=== PATIENT | female | born 1945 | race African-American/Black ===

== ENCOUNTER 2017-01-14 18:18 | Observation (INO) | payer MEDICARE, OTHER ==
[2017-01-14] MEDS ORDERED: ASPIRIN 81 MG TABLET, CHEWABLE PO ONE (18:35)
[2017-01-14] MEDS ORDERED: ONDANSETRON 4 MG TAB.RAPDIS PO ONE (18:36)
--- NOTE | 2017-01-14 18:38 | ER Document Report ---
ED Medical Screen (RME) - General Stated Complaint: DIZZY/CHEST PAIN Time seen by provider: 18:32 Notes: Spouse states sudden onset of headache, chest pain, vomiting and diarrhea, and dizziness this afternoon. Patient is currently under the care of direct marketing intern. no known fever. Patient states pain radiates from head down left arm. Does experience some shortness of breath. Patient states pain is up underneath left breast. Vomited x 5 since 5pm. I have greeted and performed a rapid initial assessment of this patient. A comprehensive ED assessment and evaluation of the patient, analysis of test results and completion of the medical decision making process will be conducted by additional ED providers. TRAVEL OUTSIDE OF THE [place] IN LAST 30 DAYS: No - Related Data Allergies/Adverse Reactions: No Known Allergies Allergy (Verified 01/14/17 18:36) Past Medical History - Past Medical History Cardiac Medical History: Reports: Hx Hypercholesterolemia, Hx Hypertension - MEDICATED Denies: Hx Coronary Artery Disease, Hx Heart Attack Pulmonary Medical History: Reports: Hx Asthma - rescue inhaler, used 1 week ago , Hx COPD, Hx Pneumonia - 2007 Denies: Hx Bronchitis Neurological Medical History: Denies: Hx Cerebrovascular Accident, Hx Seizures Endocrine Medical History: Reports: Hx Diabetes Mellitus Type 1, Hx Diabetes Mellitus Type 2 GI Medical History: Reports: Hx Gastroesophageal Reflux Disease. Denies: Hx Hepatitis, Hx Hiatal Hernia, Hx Ulcer Musculoskeltal Medical History: Reports Hx Arthritis - Rt hip, Rt knee Infectious Medical History: Denies: Hx Hepatitis Past Surgical History: Reports: Hx Hysterectomy, Hx Orthopedic Surgery - lumbar fusion, Hx Thyroid Surgery. Denies: Hx Mastectomy, Hx Open Heart Surgery, Hx Pacemaker - Immunizations Hx Diphtheria, Pertussis, Tetanus Vaccination: No Physical Exam - Cardiovascular Rhythm: Regular Heart sounds: Normal auscultation
--- NOTE | 2017-01-14 18:46 | EKG REPORT ---
SEVERITY:- BORDERLINE ECG - SINUS RHYTHM BORDERLINE PROLONGED QT INTERVAL : Confirmed by: Dereje Senior MD 14-Jan-2017 18:45:51
--- NOTE | 2017-01-14 19:52 | ER Document Report ---
ED Cardiac - General Chief Complaint: Chest Pain Stated Complaint: DIZZY/CHEST PAIN Time seen by provider: 19:52 Mode of Arrival: Ambulatory Information source: Patient TRAVEL OUTSIDE OF THE [place] IN LAST 30 DAYS: No - HPI Patient complains to provider of: Chest pain, Shortness of breath Was the onset of pain: Sudden Is the pain a: New problem Chest pain location: Substernal Quality of pain: Sharp, Stabbing Chest pain radiation location: Left arm Severity now: Moderate Severity at worst: Moderate Chest pain precipitating factors: At Rest Cardiac risk factors: Diabetes, Hypertension, Dyslipidemia Positive cardiac history: Yes Associated symptoms: Diaphoresis, Shortness of breath Exacerbated by: Denies Relieved by: Nothing Similar symptoms previously: Yes Recently seen / treated by doctor: No Notes: Patient is a 71-year-old female with multiple medical problems who presents to the emergency room complaining of left-sided chest pain that's been going on for the past 2 days, she reports headache, she reports the pain is stabbing like a knife, denies any aggravating or alleviating symptoms, it is been going on intermittently throughout the past 2 days, when the pain comes on she reports shortness of breath and diaphoresis, reports a history of similar symptoms a few months ago which time she was admitted to the hospital for evaluation, also reports that she vomited 5 times throughout the day today - Related Data Allergies/Adverse Reactions: No Known Allergies Allergy (Verified 01/14/17 18:36) Past Medical History - General Information source: Patient - Social History Smoking Status: Never Smoker Chew tobacco use (# tins/day): No Frequency of alcohol use: None Drug Abuse: None Family History: Reviewed & Not Pertinent Patient has suicidal ideation: No Patient has homicidal ideation: No - Past Medical History Cardiac Medical History: Reports: Hx Hypercholesterolemia, Hx Hypertension - MEDICATED Denies: Hx Coronary Artery Disease, Hx Heart Attack Pulmonary Medical History: Reports: Hx Asthma - rescue inhaler, used 1 week ago , Hx COPD, Hx Pneumonia - 2007 Denies: Hx Bronchitis Neurological Medical History: Denies: Hx Cerebrovascular Accident, Hx Seizures Endocrine Medical History: Reports: Hx Diabetes Mellitus Type 1, Hx Diabetes Mellitus Type 2 Renal/ Medical History: Denies: Hx Peritoneal Dialysis GI Medical History: Reports: Hx Gastroesophageal Reflux Disease. Denies: Hx Hepatitis, Hx Hiatal Hernia, Hx Ulcer Musculoskeltal Medical History: Reports Hx Arthritis - Rt hip, Rt knee Infectious Medical History: Denies: Hx Hepatitis Past Surgical History: Reports: Hx Hysterectomy, Hx Orthopedic Surgery - lumbar fusion, Hx Thyroid Surgery. Denies: Hx Mastectomy, Hx Open Heart Surgery, Hx Pacemaker - Immunizations Hx Diphtheria, Pertussis, Tetanus Vaccination: No Hx Pneumococcal Vaccination: 11/12/07 Review of Systems - Review of Systems Constitutional: No symptoms reported EENT: No symptoms reported Cardiovascular: See HPI Respiratory: See HPI Gastrointestinal: See HPI Genitourinary: No symptoms reported Female Genitourinary: No symptoms reported Musculoskeletal: No symptoms reported Skin: No symptoms reported Hematologic/Lymphatic: No symptoms reported Neurological/Psychological: No symptoms reported -: Yes All other systems reviewed and negative Physical Exam - Vital signs Vitals: Temp Pulse Resp BP Pulse Ox 98.3 F 81 18 140/70 H 98 01/14/17 18:34 01/14/17 18:34 01/14/17 18:34 01/14/17 18:34 01/14/17 18:34 Interpretation: Normal - General General appearance: Appears well, Alert - HEENT Head: Normocephalic, Atraumatic Eyes: Normal Pupils: PERRL - Respiratory Respiratory status: No respiratory distress Chest status: Nontender Breath sounds: Normal Chest palpation: Normal - Cardiovascular Rhythm: Regular Heart sounds: Normal auscultation Murmur: No - Abdominal Inspection: Normal Distension: No distension Bowel sounds: Normal Tenderness: Nontender Organomegaly: No organomegaly - Back Back: Normal, Nontender - Extremities General upper extremity: Normal inspection, Nontender, Normal color, Normal ROM , Normal temperature General lower extremity: Normal inspection, Nontender, Normal color, Normal ROM , Normal temperature, Normal weight bearing. No: Morelia's sign - Neurological Neuro grossly intact: Yes Cognition: Normal Orientation: AAOx4 Neo Coma Scale Eye Opening: Spontaneous [place] Coma Scale Verbal: Oriented Neo Coma Scale Motor: Obeys Commands [place] Coma Scale Total: 15 Speech: Normal Motor strength normal: LUE, RUE, LLE, RLE Sensory: Normal - Psychological Associated symptoms: Normal affect, Normal mood - Skin Skin Temperature: Warm Skin Moisture: Dry Skin Color: Normal Course - Re-evaluation Re-evalutation: 01/14/17 21:[address] Seaman, who is covering for Dr. Reynoso, agrees with telemetry observation admission for further evaluation and treatment of patient's chest pain - Vital Signs Vital signs: Temp Pulse Resp BP Pulse Ox 98.3 F 81 19 140/70 H 95 01/14/17 18:34 01/14/17 18:34 01/14/17 23:00 01/14/17 18:34 01/14/17 23:00 - Laboratory Result Diagrams: 01/14/17 20:35 01/14/17 20:35 Laboratory results interpreted by me: 01/14/17 01/14/17 20:35 20:35 RDW 14.9 H Est GFR (Non-Af Amer) 53 L Glucose 147 H - Diagnostic Test Radiology reviewed: Image reviewed, Reports reviewed - EKG Interpretation by Me EKG shows normal: Sinus rhythm Rate: Normal Rhythm: NSR Discharge - Discharge Clinical Impression: Chest pain Qualifiers: Chest pain type: unspecified Qualified Code(s): R07.9 - Chest pain, unspecified Condition: Stable Disposition: ADMITTED OBSERVATION Admitting Provider: Edgardo Unit Admitted: Telemetry
[2017-01-14 20:51] LABS: ABSOLUTE BASOPHILS # (AUTO) 0.1 10^3/uL (0.0-0.2); ABSOLUTE EOSINOPHILS # (AUTO) 0.2 10^3/uL (0.0-0.6); ABSOLUTE LYMPHOCYTES (AUTO) 1.8 10^3/uL (0.5-4.7); ABSOLUTE MONOCYTES (AUTO) 0.5 10^3/uL (0.1-1.4); ABSOLUTE NEUT (AUTO) 4.7 10^3/uL (1.7-8.2); BASOPHILS % (AUTO) 0.9 % (0-2); EOSINOPHILS % (AUTO) 2.7 % (0-6); HEMATOCRIT 36.8 % (36.0-47.0); HEMOGLOBIN 12.2 g/dL (12.0-15.5); HGB HCT DIFFERENCE -0.2; MEAN CORPUSCULAR HEMOGLOBIN 29.7 pg (27.0-33.4); MEAN CORPUSCULAR HGB CONC 33.1 g/dL (32.0-36.0); MEAN CORPUSCULAR VOLUME 90 fl (80-97); MONOCYTES % (AUTO) 7.3 % (3-13); RED CELL DISTRIBUTION WIDTH 14.9 % (11.5-14.0); SEGMENTED NEUTROPHILS % (AUTO) 64.1 % (42-78); WHITE BLOOD COUNT 7.3 10^3/uL (4.0-10.5)
[2017-01-14 21:04] LABS: PROTHROMBIN TIME 12.1 SEC (11.4-15.4)
[2017-01-14 21:08] LABS: ALANINE AMINOTRANSFERASE 26 U/L (9-52); ALBUMIN 4.1 g/dL (3.5-5.0); ALKALINE PHOSPHATASE 90 U/L (38-126); ANION GAP 14 (5-19); ASPARTATE AMINO TRANSFERASE 20 U/L (14-36); BILIRUBIN,TOTAL 0.4 mg/dL (0.2-1.3); BLOOD UREA NITROGEN 16 mg/dL (7-20); CARBON DIOXIDE 29 mmol/L (22-30); CHLORIDE 100 mmol/L (98-107); CREATINE KINASE 106 U/L (30-135); CREATININE RESULT 1.02 mg/dL (0.52-1.25); GLUCOSE 147 mg/dL (75-110); SODIUM 142.6 mmol/L (137-145); TOTAL PROTEIN 7.3 g/dL (6.3-8.2)
[2017-01-14 21:19] LABS: CREATINE KINASE MB 1.05 ng/mL (<4.55)
[2017-01-14 21:26] LABS: TROPONIN I < 0.012 ng/mL
[2017-01-15 04:08] LABS: CREATINE KINASE MB 1.22 ng/mL (<4.55)
[2017-01-15 04:11] LABS: TROPONIN I < 0.012 ng/mL
[2017-01-15] MEDS ORDERED: DOCUSATE SODIUM 100 MG CAPSULE PO PRN (07:55)
[2017-01-15] MEDS ORDERED: DEXTROSE 40% GEL 15 GM TUBE PO PRN ×2 (07:56)
[2017-01-15] MEDS ORDERED: GLUCAGON,HUMAN RECOMB 1 MG INJ IM PRN (07:56)
[2017-01-15] MEDS ORDERED: DEXTROSE 50%-WATER 25 GM/50 ML DISP.SYRIN IV PRN ×2 (07:56)
[2017-01-15] MEDS ORDERED: INSULIN LISPRO 100 UNIT/ML 3 ML VIAL SUBCUT PRN (07:56)
[2017-01-15] MEDS ORDERED: ENOXAPARIN SODIUM INJ 40 MG/0.4 ML DISP.SYRIN SUBCUT SCH (08:00)
--- NOTE | 2017-01-15 09:07 | PDOC H&P ---
History of Present Illness Admission Date/PCP: 01/14/17 22:26 SNEHAL BARRIOS MD History of Present Illness: IVAN ANGELES is a 71 year old female chest painAicha is a 71-year-old female presented in the emergency departments with a complaining of chest pain nausea vomiting and some heaviness in the chest and initial workup is negative for cardiac standpoints. Patient however recently has seen a Dr. Romero as outpatients and patient had a stress test done in the last July and was negative. Patient's currently denied any pain but something heaviness in the middle part of the chest and the patient was tender to touch on the chest wall. Patient denied any shortness of the breath . Patient's all EKG and cardiac enzyme was negative I think portions possible most likely a chest wall pain versus the GI symptoms but enough risk factors we will admit the patient's and further evaluate Past Medical History Cardiac Medical History: Reports: Hyperlipidema, Hypertension - MEDICATED Denies: Coronary Artery Disease, Myocardial Infarction Pulmonary Medical History: Reports: Asthma - rescue inhaler, used 1 week ago, Chronic Obstructive Pulmonary Disease (COPD), Pneumonia - 2007 Denies: Bronchitis Neurological Medical History: Denies: Seizures Endocrine Medical History: Reports: Diabetes Mellitus Type 1, Diabetes Mellitus Type 2 GI Medical History: Reports: Gastroesophageal Reflux Disease Denies: Hepatitis, Hiatal Hernia Musculoskeltal Medical History: Reports: Arthritis - Rt hip, Rt knee Hematology: Reports: Anemia - 2009 Denies: Sickle Cell Disease Past Surgical History Past Surgical History: Reports: Hysterectomy, Orthopedic Surgery - lumbar fusion Denies: Amputation, Mastectomy, Pacemaker Social History Smoking Status: Never Smoker Frequency of Alcohol Use: None Hx Recreational Drug Use: No Hx Prescription Drug Abuse: No Family History Family History: Reviewed & Not Pertinent Parental Family History Reviewed: Yes Children Family History Reviewed: Yes Sibling(s) Family History Reviewed.: Yes Medication/Allergy Home Medications: Aspirin [Aspirin 81 mg Chewable Tablet] 81 mg PO DAILY 09/25/12 Ergocalciferol (Vitamin D2) [Vitamin D] 1,000 unit PO DAILY 09/25/12 Levothyroxine Sodium [Synthroid 0.15 mg Tablet] 0.15 mg PO DAILY 09/25/12 Losartan/Hydrochlorothiazide [Hyzaar 100-25 Tablet] 1 each PO DAILY 09/25/12 Lovastatin [Mevacor] 40 mg PO DAILY 09/25/12 Metformin HCl [Glucophage 500 mg Tablet] 500 mg PO BID 09/25/12 Metoprolol Tartrate [Lopressor 50 mg Tablet] 50 mg PO BID 09/25/12 Omeprazole 20 mg PO DAILY 09/25/12 Potassium Chloride [Klor-Con] 20 meq PO BID 09/25/12 Pregabalin [Lyrica 50 mg Capsule] 100 mg PO BID 03/27/14 Docusate Sodium [Colace 100 mg Capsule] 100 mg PO PRN PRN 04/02/14 Albuterol Sulfate [Proair HFA] 1 - 2 puff IH Q4 PRN 07/24/16 Budesonide/Formoterol Fumarate [Symbicort HFA 160-4.5 mcg Inhaler 6 gm] 2 puff IH Q12H 07/24/16 Montelukast Sodium [Singulair 10 mg Tablet] 10 mg PO DAILY 07/24/16 Allergies/Adverse Reactions: No Known Allergies Allergy (Verified 01/14/17 18:36) Review of Systems Constitutional: ABSENT: chills, fever(s), headache(s), weight gain, weight loss Eyes: ABSENT: visual disturbances Ears: ABSENT: hearing changes Cardiovascular: PRESENT: chest pain. ABSENT: dyspnea on exertion, edema, orthropnea, palpitations Respiratory: ABSENT: cough, hemoptysis Gastrointestinal: ABSENT: abdominal pain, constipation, diarrhea, hematemesis, hematochezia, nausea, vomiting Genitourinary: ABSENT: dysuria, hematuria Musculoskeletal: ABSENT: joint swelling Integumentary: ABSENT: rash, wounds Neurological: ABSENT: abnormal gait, abnormal speech, confusion, dizziness, focal weakness, syncope Psychiatric: ABSENT: anxiety, depression, homidical ideation, suicidal ideation Endocrine: ABSENT: cold intolerance, heat intolerance, menstrual abnormalities, polydipsia, polyuria Hematologic/Lymphatic: ABSENT: easy bleeding, easy bruising, lymphadenopathy Physical Exam Vital Signs: Temp Pulse Resp BP Pulse Ox 98.4 F 75 26 H 153/81 H 100 01/15/17 04:22 01/15/17 04:22 01/15/17 04:22 01/15/17 04:22 01/15/17 04:22 Intake & Output 01/14/17 01/15/17 01/16/17 06:59 06:59 06:59 Intake Total 200 Balance 200 Weight 108.6 kg General appearance: PRESENT: no acute distress, well-developed, well-nourished Head exam: PRESENT: atraumatic, normocephalic Eye exam: PRESENT: conjunctiva pink, EOMI, PERRLA. ABSENT: scleral icterus Ear exam: PRESENT: normal external ear exam Mouth exam: PRESENT: moist, tongue midline Neck exam: PRESENT: full ROM. ABSENT: carotid bruit, JVD, lymphadenopathy, thyromegaly Respiratory exam: PRESENT: clear to auscultation [place] Cardiovascular exam: PRESENT: RRR. ABSENT: diastolic murmur, rubs, systolic murmur Pulses: PRESENT: normal dorsalis pedis pul, +2 pedal pulses bilateral Vascular exam: PRESENT: normal capillary refill GI/Abdominal exam: PRESENT: normal bowel sounds, soft. ABSENT: distended, guarding, mass, organolmegaly, rebound, tenderness Rectal exam: PRESENT: deferred Neurological exam: PRESENT: alert, awake, oriented to person, oriented to place , oriented to time, oriented to situation, CN II-XII grossly intact. ABSENT: motor sensory deficit Psychiatric exam: PRESENT: appropriate affect, normal mood. ABSENT: homicidal ideation, suicidal ideation Skin exam: PRESENT: dry, intact, warm. ABSENT: cyanosis, rash Results Laboratory Results: 01/15/17 01/15/17 03:35 03:35 Creatine Kinase 108 CK-MB (CK-2) 1.22 Troponin I < 0.012 Impressions: Chest X-Ray 01/14/17 18:36 IMPRESSION: NO ACUTE RADIOGRAPHIC FINDING IN THE CHEST. 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 Is this a current diagnosis for this admission?: YesPlan: ss with om protcol (3) Dyslipidemia Is this a current diagnosis for this admission?: YesPlan: stable (4) Headache Qualifiers: Headache type: unspecified Headache chronicity pattern: acute headache Intractability: not intractable Qualified Code(s): R51 - Headache Is this a current diagnosis for this admission?: YesPlan: migran headche (5) Hypertension Qualifiers: Hypertension type: essential hypertension Qualified Code(s): I10 - Essential (primary) hypertension Is this a current diagnosis for this admission?: YesPlan: stable (6) Obesity Qualifiers: Obesity severity: unspecified obesity severity Is this a current diagnosis for this admission?: Yes (7) Sleep apnea syndrome Qualifiers: Sleep apnea type: unspecified type Qualified Code(s): G47.30 - Sleep apnea, unspecified Is this a current diagnosis for this admission?: YesPlan: use c papUses CPAP machines - Time Time Spent: 30 to 50 Minutes Medications reviewed and adjusted accordingly: Yes Anticipated discharge: Home Within: within 24 hours - Inpatient Certification Medical Necessity: Significant Comorbidiites Make Outpatient Treatment Too Risky , Need Close Monitoring Due to Risk of Patient Decompensation - Plan Summary Plan Summary: Admit the patient's rule out any GI etiology and rule out acute coronary syndromes
[2017-01-15] MEDS ORDERED: LOSARTAN POTASSIUM 50 MG TABLET PO SCH (10:00)
[2017-01-15] MEDS ORDERED: (PENDING PHARMACY ID) (Potassium Chloride [Klor-Con] 20 MEQ) PO SCH (10:00)
[2017-01-15] MEDS ORDERED: METOPROLOL TARTRATE 50 MG TABLET PO SCH (10:00)
[2017-01-15] MEDS ORDERED: LOVASTATIN 40 MG PO SCH (10:00)
[2017-01-15] MEDS ORDERED: CHOLECALCIFEROL (D3) 1,000 UNIT TABLET PO SCH (10:00)
[2017-01-15] MEDS ORDERED: ASPIRIN 81 MG TABLET, CHEWABLE PO SCH (10:00)
[2017-01-15] MEDS ORDERED: MONTELUKAST SODIUM 10 MG TABLET PO SCH (10:00)
[2017-01-15] MEDS ORDERED: (PENDING PHARMACY ID) (Losartan/Hydrochlorothiazide [Hyzaar 100-25 Tablet] 1 EACH) PO SCH (10:00)
[2017-01-15] MEDS ORDERED: HYDROCHLOROTHIAZIDE 25 MG TABLET PO SCH (10:00)
[2017-01-15] MEDS ORDERED: (PENDING PHARMACY ID) (Ergocalciferol (Vitamin D2) [Vitamin D] 1,000 UNIT) PO SCH (10:00)
[2017-01-15] MEDS ORDERED: LEVOTHYROXINE SODIUM 0.15 MG TABLET PO SCH (10:00)
[2017-01-15 10:08] LABS: CREATINE KINASE MB 1.27 ng/mL (<4.55)
[2017-01-15 10:12] LABS: TROPONIN I < 0.012 ng/mL
[2017-01-15] MEDS: POTASSIUM CHLORIDE 10 MEQ TABLET.SA PO SCH ×2 (11:04→21:47)
[2017-01-15] MEDS: PREGABALIN 50 MG CAPSULE PO SCH ×2 (11:04→19:59)
[2017-01-15] MEDS: METOPROLOL TARTRATE 50 MG TABLET PO SCH ×2 (11:05→21:48)
[2017-01-15] MEDS: PANTOPRAZOLE SODIUM 40 MG VIAL IV SCH ×2 (11:06→21:48)
[2017-01-15] MEDS: BUDESONIDE/FORMOTEROL 160-4.5 MCG 60 PUFF/6 GM MDI IH SCH ×2 (11:06→21:47)
[2017-01-15 16:09] LABS: CREATINE KINASE MB 0.95 ng/mL (<4.55)
[2017-01-15 16:13] LABS: TROPONIN I < 0.012 ng/mL
[2017-01-15] MEDS ORDERED: ATORVASTATIN CALCIUM 10 MG TABLET PO SCH (22:00)
[2017-01-15 22:25] LABS: TROPONIN I < 0.012 ng/mL
--- NOTE | 2017-01-16 04:03 | CONSULTATION REPORT E ---
Consultation Report NAME: IVAN ANGELES : 1945 AGE: 71Y DATE: 01/15/2017 304 B TO: SHANELL GALO M.D. FROM: SNEHAL REYNOSO M.D. Requesting Physician REASON FOR CONSULTATION: Chest pain. HISTORY OF PRESENT ILLNESS: Patient is a morbidly obese 71-year-old Afro-[place] female with known history of hypertension, diabetes mellitus type 2, insulin-dependent, with history of obstructive sleep apnea, and history of hypothyroidism, states that yesterday she had sudden onset of sharp few seconds chest pain over the left chest, lasting only for a few seconds, but recurring. This whole episode lasted for about 10 minutes of intermittent few seconds of chest sharp pains. Also, subsequently, she also has some chest pain, which is reproducible by pressing of the left front of the chest, which is clearly non-cardiac chest pain. She had some shortness of breath. She also noted that her blood pressure was high at that time. In the ER, her blood pressure was 140/70. There was no cough, wheezing, PND, orthopnea. She does have a history of intermittent leg edema, but none recently. There are no palpitations or syncope. There are no TIA or CVA symptoms. PAST MEDICAL HISTORY: Positive for history of non-cardiac chest pain. She had a stress test in July of 2016, which as per the patient was negative. She has a history of sleep apnea and uses CPAP. She has a history of hypertension. She has a history of diabetes mellitus type 2, insulin-dependent with no definite complications. She has history of hypothyroidism, iatrogenic after she had a thyroid removed. She also has a history of asthma and uses rescue inhaler. The last one was about a week ago. There is wheezing after that. She also has a history of COPD. In 2007, she had pneumonia. She has no history of TIA, CVA, seizures. There is no history of chronic kidney disease. She has history of gastroesophageal reflux disease. She also has a history of arthritis of both knees and also has chronic back pain due to arthritis, even after having lumbar fusion surgery. There is no history of syncope. There is no history of PND or orthopnea at anytime. There is a history of intermittent leg swelling. PAST SURGICAL HISTORY: Positive for hysterectomy, orthopedic surgery, with lumbar fusion of lower back with chronic back pain. She also has had a history of operation on her wrist for nerve damage, which has not helped and her right handgrip is weak and she cannot open a bottle with the right hand. She does have neuropathy in her legs and feet. She has had arthritis of right hip and right knee. She has had lumbar fusion surgery. She has had back surgery in 2014 with lumbar fusion. She has also had a history of thyroidectomy for thyroid cancer with no metastasis and no recurrence. She is on replacement of Synthroid. She has a laparoscopic cholecystectomy, transvaginal hysterectomy, left breast biopsy x2, which was benign, and right wrist de Quervain's syndrome x2 with still some weakness in the right handgrip and cannot open a bottle with that. She had a surgery for cyst in the left ear. SOCIAL HISTORY: This patient does not smoke. There is no history of EtOH abuse. FAMILY HISTORY: Positive for hypertension, diabetes mellitus, but no history of coronary artery disease. DISPOSITION/CODE STATUS: The patient is a FULL CODE. is her healthcare decision maker. ALLERGIES: She has no known allergies. MEDICATIONS: Include: 1. Aspirin 81 mg p.o. daily. 2. She is on atorvastatin 10 mg p.o. at bedtime. 3. She is on Symbicort HFA 160/4.5 mcg inhaler 2 puffs q. 12 hours. 4. She is on vitamin D 1000 units p.o. daily. 5. She is on hypoglycemic precautions with dextrose 50% solution, 12.5 g IV and 25 g IV p.r.n. respectively for hypoglycemia. 6. She is on glucose 40% gel, 15 g p.o. p.r.n. and 30 g p.o. p.r.n. hypoglycemia. 7. She is also on Colace 100 mg p.o. daily. 8. She is on Lovenox 40 mg subcutaneously q.a.m. 9. She is on Glucagon 1 mg IM p.r.n. 10. She is on hydrochlorothiazide 25 mg p.o. daily. 11. She is on Accu-Cheks a.c. tid and at bedtime with sliding scale regular insulin. 12. She is on Synthroid 150 mcg p.o. daily. 13. She is on losartan 100 mg p.o. daily. 14. She is on metoprolol tartrate, Lopressor 50 mg p.o. q. 12 hours. 15. She is on Singulair 10 mg p.o. daily. 16. She is on pantoprazole sodium 40 mg IV q. 12 hours. 17. She is on KCl 20 mEq p.o. daily. 18. She is on Lyrica 100 mg p.o. b.i.d. REVIEW OF SYSTEMS: CONSTITUTIONAL: Denies any fever, chills or rigors, but complains of pain, generalized fatigued and weakness. HEAD: She did have a headache yesterday, but no past history of migraines. There is no history of seizures. No history of head injury. EYES: There is no history of amblyopia, diplopia. No history of amaurosis fugax. EARS: No history of hearing loss. No history of tinnitus. No history of recurring ear infections. NOSE: No history of nosebleeds. No history of nasal polyps. No history of hay fever. MOUTH: No history of altered taste sensation. No ulcers in the mouth. No bleeding from the gums. THROAT: No odynophagia or dysphagia. No history of recurrent sore throats. SKIN: There are no skin rashes. There is no pruritus. There is no yellowish discoloration of the skin. There is no skin cancer. NECK: There are no cervical spine arthritis complaints of pain. She has swelling in the neck. There is no goiter. She has a scar in the upper chest, just below the neck, in the front, scar of thyroid surgery with some keloid, mild development. LUNGS: History of asthma and history of COPD. She has a history of sleep apnea and uses CPAP. No history of pulmonary embolism. No history of pleuritic chest pain, although she had sharp chest pains, which were not related to respiration. No hemoptysis. She states that she has a history of asthma. Last wheezing was about a week ago. She also has COPD. No recent cough or sputum production, suggestive of pneumonia. CARDIAC: History of hypertension, history of non-cardiac chest pains. The patient in July had a stress test, which the patient states was negative for any ischemia or heart attacks. She has no history of congestive heart failure. She has intermittent leg swelling, especially if she walks a lot and it is relieved by elevation of the legs. She has no palpitation. No syncope. No history of PND or orthopnea. There are no palpitations or syncope. She has no history of congenital heart disease. No history of rheumatic fever. GASTROINTESTINAL: History of GERD present. No history of GI bleed. She has intermittent dysphagia at times to solid foods. No history of hepatitis. No history of jaundice. No history of fatty food intolerance. She had one bout of diarrhea without hematochezia or melena or bright red blood per rectum. She has no abdominal pain. ENDOCRINE: History of diabetes mellitus type 2, with insulin-dependent. No polydipsia or polyuria. She has history of neuropathy of the feet and hence is on Lyrica. She has a history of thyroidectomy and is on thyroid replacement. No symptoms of heat or cold intolerance. No history of excessive sweating. No history of hirsutism. RENAL: No history of chronic kidney disease. No symptoms of UTI. No history of hematuria, pyuria or dysuria. MUSCULOSKELETAL: She has a history of chronic back pain due to arthritis. She also has arthritis of both knees. There is no history of collagen vascular disease. METABOLIC: The patient is morbidly obese. She has a history of hyperlipidemia. No history of gout. VASCULAR: No history of calf or buttock claudication. No history of DVT. HEMATOLOGICAL: No history of bleeding diathesis. No history of clotting disorders. CENTRAL NERVOUS SYSTEM: No history of TIA or CVA. No history of headaches, migraines, seizures chronically, but she did have some headache associated with the chest pain and her blood pressure was high. There is no gait imbalance. There is no tic douloureux. PSYCHIATRIC: No history of anxiety or depression. No history of suicidal ideation. PHYSICAL EXAMINATION: GENERAL: The patient is morbidly obese, but well groomed. At present, the patient has no symptoms except she has minimal discomfort when pressing on the middle left front of the chest. VITAL SIGNS: The patient is afebrile with a temperature of 98.8 degrees Fahrenheit, pulse is 84 beats per minute, blood pressure 129/81, respirations are 16 per minute, and O2 sats are 92% on room air. HEAD: Atraumatic, normocephalic. EYES: Pupils are equal, round, regular, reactive to light and accommodation. Extraocular movements are normal. There is no conjunctival pallor. There is no scleral icterus. EARS: Tympanic membranes are intact. External auditory canals are clear. NOSE: There is no inflammation of nasal mucous membranes. There are no nasal polyps. There is no deviated nasal septum. MOUTH: Mucous membranes of mouth are moist. Tongue is moist. There are no ulcers. There is no bleeding in the gums. THROAT: There are no exudates in the throat. There is no redness of the oropharynx. SKIN: There is no petechia or ecchymosis. There is no pruritus. There is no yellowish discoloration of the skin. NECK: Supple. There is no JVD. Carotids are equal. There is no bruit. There is no goiter. There is no lymphadenopathy. Trachea is central. LUNGS: Show slightly diminished air entry, prolonged expiration on auscultation and on percussion at present. There are no rhonchi, rales or wheezing. HEART: S1 and S2 are heard. There is no S3 gallop. There is no S4 gallop. Systolic murmur at left sternal border of the apex is noted. ABDOMEN: Abdomen is obese. There is no hepatosplenomegaly. Bowel sounds are well heard. There is no rebound, guarding or rigidity. EXTREMITIES: Femorals are diminished. Leg pulses are diminished. There are no femoral bruits. At present, there is no pedal edema. There is no DVT or cellulitis. There is no calf tenderness. CENTRAL NERVOUS SYSTEM: The patient is conscious, awake, alert, oriented x3 with no focal deficits. PSYCHIATRIC: The patient's judgment and insight are intact. Her affect is normal. DIAGNOSTIC DATA: The patient's EKG done on 01/14/2017 shows sinus rhythm, borderline prolonged QT interval. The patient's chest x-ray is essentially negative. There are no infiltrates or signs of heart failure. A chest CT without contrast shows lungs pleura. There are no masses, infiltrates or pneumothorax. No pleural effusions or calcifications. There are no any defined masses or abnormal nodes in the mediastinal. No obvious aneurysm. There is no pericardial effusion. There is some prominence of central pulmonary vessel, unchanged from previous study. Upper abdomen, no significant findings, limited exam. Thyroid and other soft tissues, no masses. There is no adenopathy. Bruits, there are no significant findings. LABORATORY DATA: The patient's white count is 7300. Hemoglobin is 12.2. Hematocrit is 36.8. Platelet count is 244,000. The patient's Pro-Time is 12.1. INR is 0.87. The patient's cardiac enzymes have been negative x4. The patient's sodium is 142.6. Potassium is 4/0. Her chloride is 100. CO2 is 29. The patient's BUN is 16. Creatinine is 1.02. GFR is greater than 60. Her glucose is 147. Her calcium is 10.0. Liver function tests are normal. Her total protein is 7.3. Albumin is 4.1. IMPRESSION: 1. CHEST PAIN. THIS IS DEFINITELY NON-CARDIAC, ESPECIALLY WITH *------* AND NEGATIVE TROPONIN I X4 AND WITH A STRESS TEST, WHICH WAS NEGATIVE IN . THIS WAS CLEARLY NON-CARDIAC. 2. DIABETES MELLITUS, TYPE 2, INSULIN-DEPENDENT WITH PERIPHERAL NEUROPATHY AND COMPLICATION. 3. HYPERTENSION. 4. HISTORY OF THYROIDECTOMY FOR THYROID CANCER WITH NO RECURRENCE WITH PATIENT HYPOTHYROID ON REPLACEMENT. 5. HEADACHE. 6. HYPERTENSION. 7. MORBID OBESITY. 8. OBSTRUCTIVE SLEEP APNEA, ON CPAP. 9. DYSLIPIDEMIA. 10. GASTROESOPHAGEAL REFLUX DISEASE. 11. CHRONIC BACK PAIN DUE TO ARTHRITIS. RECOMMENDATIONS: We will continue current medications. We will reassure the patient. The patient has been set up for a ventilation perfusion scan. The patient is Dr. Romero's patient. She can be followed up by Dr. Romero as an outpatient. Need to reduce weight discussed with the patient. Labs and findings of CT, EKGs and blood work; especially negative cardiac enzymes have all been discussed with the patient. Note: 40 minutes spent on this patient, in reviewing the patient's old records and also reviewing the patient's medications and discussions with the patient and the patient's family and also discussions with the attending physician of the case and coordinating care. More than 50% of the time was spent on direct patient care. The medical decision making is at least of moderate complexity since the patient is not a very good historian and I had to go through all her old records. We discussed with Dr. Borges and Dr. Reynoso, the attending on the case. We will sign off. The patient will follow up with Dr. Romero as an outpatient. Thanking you. DICTATING PHYSICIAN: SHANELL GALO M.D. [id number] PHY#: [id number] ID: [id number] JOB#: [id number] ACCT: [id number] cc:SHANELL GALO M.D. >
[2017-01-16 04:52] LABS: ABSOLUTE EOSINOPHILS # (AUTO) 0.3 10^3/uL (0.0-0.6); ABSOLUTE LYMPHOCYTES (AUTO) 2.5 10^3/uL (0.5-4.7); ABSOLUTE MONOCYTES (AUTO) 0.6 10^3/uL (0.1-1.4); ABSOLUTE NEUT (AUTO) 2.6 10^3/uL (1.7-8.2); BASOPHILS % (AUTO) 0.8 % (0-2); EOSINOPHILS % (AUTO) 5.2 % (0-6); HEMATOCRIT 33.5 % (36.0-47.0); HEMOGLOBIN 11.1 g/dL (12.0-15.5); HGB HCT DIFFERENCE -0.2; LYMPHOCYTES % (AUTO) 41.2 % (13-45); MEAN CORPUSCULAR HEMOGLOBIN 29.9 pg (27.0-33.4); MEAN CORPUSCULAR HGB CONC 33.2 g/dL (32.0-36.0); MEAN CORPUSCULAR VOLUME 90 fl (80-97); MONOCYTES % (AUTO) 10.3 % (3-13); RED BLOOD COUNT 3.73 10^6/uL (3.72-5.28); RED CELL DISTRIBUTION WIDTH 15.3 % (11.5-14.0); SEGMENTED NEUTROPHILS % (AUTO) 42.5 % (42-78)
[2017-01-16 05:14] LABS: ANION GAP 10 (5-19); BLOOD UREA NITROGEN 19 mg/dL (7-20); CALCIUM 9.9 mg/dL (8.4-10.2); CARBON DIOXIDE 30 mmol/L (22-30); CHLORIDE 102 mmol/L (98-107); CREATININE RESULT 1.02 mg/dL (0.52-1.25); GLUCOSE 135 mg/dL (75-110); POTASSIUM 3.9 mmol/L (3.6-5.0); SODIUM 142.4 mmol/L (137-145)
[2017-01-16 09:03] VITALS: BP 131/73
--- NOTE | 2017-01-16 13:40 | CONSULTATION REPORT E ---
Consultation Report NAME: IVAN ANGELES : 1945 AGE: 71Y DATE: 01/15/2017 304 B TO: SHANELL GALO M.D. FROM: SNEHAL BARRIOS M.D. Requesting Physician REASON FOR CONSULTATION: Chest pain. HISTORY OF PRESENT ILLNESS: The patient is a 71-year-old -[place] female with known history of morbid obesity, hypertension, diabetes mellitus type 2 insulin-dependent, obstructive sleep apnea, and history of asthma who states that yesterday she had in the evening around 5 o'clock sharp chest pains lasting few seconds at a time for a total period of 10 minutes with some shortness of breath and also headache. Subsequently, she had vomited and had diarrhea, but there was no hematemesis or melena. She at that time denies any history of dysphagia. She states that there were no palpitations. There were no PND or orthopnea, but she does have some shortness of breath. She states she has been diagnosed with obstructive sleep apnea and has used CPAP regularly. She denies any palpitations or syncope. There is intermittent leg edema, but none now. There is no history of TIA or CVA symptoms. She states that at that time her blood pressure was high, but in the emergency room, her first recorded blood pressure was 140/70. Subsequent to those 10 minutes, she has not had any further chest pains. PAST MEDICAL HISTORY: Positive for history of hypertension. Dictation ends DICTATING PHYSICIAN: SHANELL GALO M.D. [id number] PHY#: [id number] ID: [id number] JOB#: [id number] ACCT: [id number] cc:SHANELL GALO M.D. >
--- NOTE | 2017-01-16 13:45 | PDOC DISCHARGE SUMMARY ---
General - Admit/Disc Date/PCP Admission Date/Primary Care Provider: 01/14/17 22:26 SNEHAL BARRIOS MD Discharge Date: 01/16/17 - Discharge Diagnosis (1) Chest pain Is this a current diagnosis for this admission?: YesSummary: All resolved and most likely a noncardiac with the possible chest wall pain while elicited on the exam. (2) Diabetes mellitus Is this a current diagnosis for this admission?: YesSummary: Stable continues to current medications (3) Dyslipidemia Is this a current diagnosis for this admission?: YesSummary: Stable (4) Headache Is this a current diagnosis for this admission?: YesSummary: All resolved (5) Hypertension Is this a current diagnosis for this admission?: YesSummary: Stable on the current medications (6) Obesity Is this a current diagnosis for this admission?: YesSummary: Diet and exercise (7) Sleep apnea syndrome Is this a current diagnosis for this admission?: YesSummary: Continues the current CPAP (8) GERD (gastroesophageal reflux disease) Is this a current diagnosis for this admission?: YesSummary: Follow outpatients and continues to current medications. Patient have an endoscopy was done last year by Dr. brown and all stable - Additional Information Discharge Activity: Activity As Tolerated Home Medications: Aspirin [Aspirin 81 mg Chewable Tablet] 81 mg PO DAILY 09/25/12 Ergocalciferol (Vitamin D2) [Vitamin D] 1,000 unit PO DAILY 09/25/12 Levothyroxine Sodium [Synthroid 0.15 mg Tablet] 0.15 mg PO DAILY 09/25/12 Losartan/Hydrochlorothiazide [Hyzaar 100-25 Tablet] 1 each PO DAILY 09/25/12 Lovastatin [Mevacor] 40 mg PO DAILY 09/25/12 Metformin HCl [Glucophage 500 mg Tablet] 500 mg PO BID 09/25/12 Metoprolol Tartrate [Lopressor 50 mg Tablet] 50 mg PO BID 09/25/12 Omeprazole 20 mg PO DAILY 09/25/12 Potassium Chloride [Klor-Con] 20 meq PO BID 09/25/12 Pregabalin [Lyrica 50 mg Capsule] 100 mg PO BID 03/27/14 Docusate Sodium [Colace 100 mg Capsule] 100 mg PO PRN PRN 04/02/14 Albuterol Sulfate [Proair HFA] 1 - 2 puff IH Q4 PRN 07/24/16 Budesonide/Formoterol Fumarate [Symbicort HFA 160-4.5 mcg Inhaler 6 gm] 2 puff IH Q12H 07/24/16 Montelukast Sodium [Singulair 10 mg Tablet] 10 mg PO DAILY 07/24/16 History of Present Illness History of Present Illness: IVAN ANGELES is a 71 year old female chest painThis is a 71-year-old female presented in the emergency departments with a complaining of chest pain nausea vomiting and some heaviness in the chest and initial workup is negative for cardiac standpoints. Patient however recently has seen a Dr. Romero as outpatients and patient had a stress test done in the last July and was negative. Patient's currently denied any pain but something heaviness in the middle part of the chest and the patient was tender to touch on the chest wall. Patient denied any shortness of the breath . Patient's all EKG and cardiac enzyme was negative I think portions possible most likely a chest wall pain versus the GI symptoms but enough risk factors we will admit the patient's and further evaluate Hospital Course Hospital Course: This is a 71-year-old females present in the emergency department with chest pains epigastric discomfort and headache and the patient initial cardiac workup was all negative. Patient's denied any shortness of the breath patients denied any blurry vision or any weakness. Patient was admitted in the hospital and Dr. Childers was consulted and suggest this is a noncardiac. Patient's CT chest was done without contrast and was negative for any acute finding. Patient is walking the hallway without any problems and patient O2 sat is remained stable and patients denied any chest pain and no other symptoms no discharge. Patient's follow as outpatients. Patient have a very hard to get IV access so unable to get the IV contrast on the CT scan but I do not think so patient have any issue with the lung at this point and patient currently see a doctor Curseen regularly as outpatients. Patient's will following a one-week in office on this patient have any further chest pain any short of breath and to come to the emergency departments. Discussed with the patient's very extensively. Physical Exam Vital Signs: Temp Pulse Resp BP Pulse Ox 98.8 F 76 22 H 131/73 H 98 01/16/17 09:01 01/16/17 09:01 01/16/17 09:01 01/16/17 09:01 01/16/17 09:01 Intake & Output 01/15/17 01/16/17 01/17/17 06:59 06:59 06:59 Intake Total 200 1063 Balance 200 1063 Weight 108.6 kg 110.4 kg General appearance: PRESENT: no acute distress, well-developed, well-nourished Head exam: PRESENT: atraumatic, normocephalic Eye exam: PRESENT: conjunctiva pink, EOMI, PERRLA. ABSENT: scleral icterus Ear exam: PRESENT: normal external ear exam Mouth exam: PRESENT: moist, tongue midline Neck exam: PRESENT: full ROM. ABSENT: carotid bruit, JVD, lymphadenopathy, thyromegaly Respiratory exam: PRESENT: chest wall tenderness, clear to auscultation [place] Cardiovascular exam: PRESENT: RRR. ABSENT: diastolic murmur, rubs, systolic murmur Pulses: PRESENT: normal dorsalis pedis pul, +2 pedal pulses bilateral Vascular exam: PRESENT: normal capillary refill GI/Abdominal exam: PRESENT: normal bowel sounds, soft. ABSENT: distended, guarding, mass, organolmegaly, rebound, tenderness Rectal exam: PRESENT: deferred Neurological exam: PRESENT: alert, awake, oriented to person, oriented to place , oriented to time, oriented to situation, CN II-XII grossly intact. ABSENT: motor sensory deficit Psychiatric exam: PRESENT: appropriate affect, normal mood. ABSENT: homicidal ideation, suicidal ideation Skin exam: PRESENT: dry, intact, warm. ABSENT: cyanosis, rash Results Laboratory Results: 01/16/17 03:49 01/16/17 03:49 01/16/17 01/16/17 03:49 03:49 WBC 6.0 RBC 3.73 Hgb 11.1 L Hct 33.5 L MCV 90 MCH 29.9 MCHC 33.2 RDW 15.3 H Plt Count 228 Seg Neutrophils % 42.5 Lymphocytes % 41.2 Monocytes % 10.3 Eosinophils % 5.2 Basophils % 0.8 Absolute Neutrophils 2.6 Absolute Lymphocytes 2.5 Absolute Monocytes 0.6 Absolute Eosinophils 0.3 Absolute Basophils 0.0 Sodium 142.4 Potassium 3.9 Chloride 102 Carbon Dioxide 30 Anion Gap 10 BUN 19 Creatinine 1.02 Est GFR ( Amer) > 60 Est GFR (Non-Af Amer) 53 L Glucose 135 H Calcium 9.9 01/15/17 01/15/17 01/15/17 03:35 03:35 08:30 Creatine Kinase 108 118 CK-MB (CK-2) 1.22 Troponin I < 0.012 01/15/17 01/15/17 01/15/17 08:30 15:30 15:30 Creatine Kinase 109 CK-MB (CK-2) 1.27 0.95 Troponin I < 0.012 < 0.012 01/15/17 01/15/17 21:40 21:40 Creatine Kinase 96 CK-MB (CK-2) 0.80 Troponin I < 0.012 Impressions: Chest X-Ray 01/14/17 18:36 IMPRESSION: NO ACUTE RADIOGRAPHIC FINDING IN THE CHEST. Chest CT 01/15/17 00:00 IMPRESSION: NO SIGNIFICANT FINDING ON NON-CONTRASTED CHEST CT. Plan Time Spent: Less than 30 Minutes - Discharge home with the stable conditions with no other acute finding and no further hospitalization is required and patient's desire to go home and discussed with the hat lining blocker and suggested patients can discharge.
== END 2017-01-16 10:05 | disposition home or self-care (01) ==
LOC: ER 18:18 → EH 21:43 → UNDOADMOB 21:43 → INTOOBSV 22:26 → OBSVTOIN 22:26 → EH 22:26 → 3N 01-15 02:10
PROVIDERS: ADMIT Family Medicine; ATTEND Family Medicine
DX: R07.89 Other chest pain (principal); E11.40 Type 2 diabetes mellitus with diabetic neuropathy, unspecified; E78.5 Hyperlipidemia, unspecified; R51 Headache; I10 Essential (primary) hypertension; G47.33 Obstructive sleep apnea (adult) (pediatric); K21.9 Gastro-esophageal reflux disease without esophagitis; J44.9 Chronic obstructive pulmonary disease, unspecified; Z79.4 Long term (current) use of insulin; E66.01 Morbid (severe) obesity due to excess calories; E89.0 Postprocedural hypothyroidism; Z85.850 Personal history of malignant neoplasm of thyroid
CPT/HCPCS: 93005; 99285; 36415 ×3; 82553 ×2; 82962 ×2; 82550 ×2; 85025 ×2; 85610; 80048; 80053; 84484 ×2; 71010; 71250; 93010; G0378 ×2; A9270 ×12; J3490; J1815; S0119

== ENCOUNTER → 2017-04-27 | Outpatient (CLI) | payer MEDICARE, OTHER ==
[2017-04-27 11:04] LABS: ABSOLUTE BASOPHILS # (AUTO) 0.1 10^3/uL (0.0-0.2); ABSOLUTE EOSINOPHILS # (AUTO) 0.3 10^3/uL (0.0-0.6); ABSOLUTE LYMPHOCYTES (AUTO) 2.2 10^3/uL (0.5-4.7); ABSOLUTE MONOCYTES (AUTO) 0.5 10^3/uL (0.1-1.4); ABSOLUTE NEUT (AUTO) 4.5 10^3/uL (1.7-8.2); BASOPHILS % (AUTO) 0.7 % (0-2); HEMATOCRIT 38.9 % (36.0-47.0); HEMOGLOBIN 12.6 g/dL (12.0-15.5); HGB HCT DIFFERENCE -1.1; MEAN CORPUSCULAR HEMOGLOBIN 29.6 pg (27.0-33.4); MEAN CORPUSCULAR HGB CONC 32.5 g/dL (32.0-36.0); MEAN CORPUSCULAR VOLUME 91 fl (80-97); MONOCYTES % (AUTO) 7.1 % (3-13); RED BLOOD COUNT 4.27 10^6/uL (3.72-5.28); RED CELL DISTRIBUTION WIDTH 14.5 % (11.5-14.0); SEGMENTED NEUTROPHILS % (AUTO) 59.2 % (42-78); WHITE BLOOD COUNT 7.6 10^3/uL (4.0-10.5)
== END ==
LOC: OD 09:52
PROVIDERS: ATTEND Internal Medicine Pulmonary Disease
DX: R06.09 Other forms of dyspnea (principal)
CPT/HCPCS: 36415; 85025; 85379

== ENCOUNTER → 2017-05-14 | Outpatient (CLI) | payer MEDICARE, OTHER ==
[2017-05-17 07:04] LABS: IMMUNOGLOBULIN E 143 IU/mL (0-100)
[2017-05-19 06:39] LABS: M001-IGE PENICILLIUM CHRYSOGEN <0.10 kU/L (Class 0); M002-IGE CLADOSPORIUM HERBARUM <0.10 kU/L (Class 0); M003-IGE ASPERGILLUS FUMIGATUS <0.10 kU/L (Class 0); M004-IGE MUCOR RACEMOSUS <0.10 kU/L (Class 0); M005-IGE CANDIDA ALBICANS <0.10 kU/L (Class 0); M006-IGE ALTERNARIA ALTERNATA <0.10 kU/L (Class 0); M008-IGE SETOMELANOMMA ROSTRAT <0.10 kU/L (Class 0); M009-IGE FUSARIUM PROLIFERATUM <0.10 kU/L (Class 0); M012-IGE AUREOBASIDI PULLULANS <0.10 kU/L (Class 0); M013-IGE PHOMA BETAE <0.10 kU/L (Class 0); M014-IGE EPICOCCUM PURPURASCEN <0.10 kU/L (Class 0)
[2017-05-19 11:35] LABS: M010-IGE STEMPHYLIUM HERBARUM <0.10 kU/L (Class 0)
== END ==
LOC: OD 13:02
PROVIDERS: ATTEND Internal Medicine Pulmonary Disease
DX: R06.09 Other forms of dyspnea (principal)
CPT/HCPCS: 36415; 82785; 86003

== ENCOUNTER → 2017-05-29 | Outpatient (CLI) | payer MEDICARE, OTHER ==
[2017-05-29 09:15] LABS: ANION GAP 14 (5-19); BLOOD UREA NITROGEN 18 mg/dL (7-20); CALCIUM 9.4 mg/dL (8.4-10.2); CARBON DIOXIDE 26 mmol/L (22-30); CHLORIDE 102 mmol/L (98-107); GLUCOSE 165 mg/dL (75-110); POTASSIUM 3.6 mmol/L (3.6-5.0); SODIUM 142.1 mmol/L (137-145)
[2017-05-29 09:45] LABS: FREE T3 2.94 pg/mL (2.77-5.27)
[2017-05-29 09:58] LABS: THYROID STIMULATING HORMONE 0.51 uIU/mL (0.47-4.68)
== END ==
LOC: LAB 08:17
PROVIDERS: ATTEND Internal Medicine Endocrinology, Diabetes & Metabolism
DX: E89.0 Postprocedural hypothyroidism (principal); C73 Malignant neoplasm of thyroid gland; Z79.899 Other long term (current) drug therapy; R68.89 Other general symptoms and signs; Z68.36 Body mass index [BMI] 36.0-36.9, adult
CPT/HCPCS: 36415; 80048; 84439; 84443; 84481

== ENCOUNTER → 2017-06-14 | Outpatient (CLI) | payer MEDICARE, OTHER ==
--- NOTE | 2017-06-14 19:54 | XCELERA REPORT ---
[address] [address] Transthoracic Echocardiogram Report Name: IVAN ANGELES Age: 72 yrs Gender: Female : 1945 Patient Status: Outpatient Patient Location: Study Date: 06/14/2017 08:02 AM Height: 65 in Weight: 240 lb BSA: 2.1 m2 Reason For Study: DYSPNEA Ordering Physician: DAWOOD SALGUERO Performed By: Ivette Jorge Interpretation Summary No sigsnificant pericardial effusion. Mild AV sclerosis with no no AR. Mild MAC, no MS no MR, no MVP, normal LA size. Mild concentric LVH with Normal LVEF, stage I LV diastolic dysfunction, no regional wall motion abnormality. R heart poorly visualized, no TR to assess RVSP. MMode/2D Measurements \T\ Calculations RVDd: 3.4 cm LVIDd: 4.0 cm FS: 32.6 % Ao root diam: 3.1 cm IVSd: 1.2 cm LVIDs: 2.7 cm EDV(Teich): 70.2 ml LVPWd: 1.1 cm ESV(Teich): 27.0 ml Ao root area: 7.8 cm2 EF(Teich): 61.5 % LA dimension: 4.0 cm LVOT diam: 2.1 cm LVOT area: 3.5 cm2 Doppler Measurements \T\ Calculations MV E max mumtaz: MV P1/2t max mumtaz: Ao V2 max: LV V1 max P.1 cm/sec 72.1 cm/sec 142.4 cm/sec 4.7 mmHg MV A max mumtaz: MV P1/2t: 42.9 msec Ao max PG: LV V1 max: 97.2 cm/sec MVA(P1/2t): 5.1 cm2 8.1 mmHg 108.1 cm/sec MV E/A: 0.73 MV dec slope: AYESHA(V,D): 2.6 cm2 492.3 cm/sec2 PA V2 max: 88.8 cm/sec PA max P.2 mmHg Left Ventricle The left ventricle is normal in size, thickness and function. There is mild concentric left ventricular hypertrophy. The left ventricular ejection fraction is normal. LV EF is 62%. Doppler measurements suggest impaired left ventricular relaxation, which is associated with grade I/IV or mild diastolic dysfunction. No regional wall motion abnormalities noted. There is no thrombus. Right Ventricle The right ventricle is not well visualized secondary to technical limitations. Atria The right atrium is normal. The left atrial size is normal. The interatrial septum is intact with no evidence for an atrial septal defect. Mitral Valve There is mild mitral annular calcification. There is no evidence of mitral valve prolapse. There is no mitral valve stenosis. There is a trace amount of mitral regurgitation. Aortic Valve The aortic valve opens well. The aortic valve is sclerotic and shows some degree of functional abnormality. The aortic valve is trileaflet. There is no aortic valvular vegetation. There is no aortic valve stenosis. No aortic regurgitation is present. Tricuspid Valve The tricuspid is normal in structure and function. There is no tricuspid stenosis. No tricuspid regurgitation. Tricuspid regurgitation jet envelope not well defined to measure RV systolic pressure accurately. unable to r/o pulm hypertension. Pulmonic Valve The pulmonic valve is not well visualized. There is no pulmonic valvular regurgitation. Great Vessels The aortic root is normal size. Effusions Minimal pericardial effusion. I WMSI = 1.00 % Normal = 100 Segments Size X - Cannot 1 - Normal 2 - 3 - Akinetic4 - 1-2 small Interpret Hypokinetic Dyskinetic 3-5 moderate 5 - 6-14 large Aneurysmal 15-16 diffuse : DAWOOD SALGUERO > Dereje Senior
== END ==
LOC: SP 07:46
PROVIDERS: ATTEND Internal Medicine Pulmonary Disease
DX: R06.00 Dyspnea, unspecified (principal)
CPT/HCPCS: 93306

== ENCOUNTER → 2017-08-15 | Outpatient (CLI) | payer MEDICARE, OTHER ==
--- NOTE | 2017-08-15 15:21 | WOMENS IMAGING REPORT ---
EXAM DESCRIPTION: 3D SCREENING MAMMO BILAT COMPLETED DATE/TIME: 08/15/2017 8:42 am REASON FOR STUDY: SCREENING MAMMO Z12.31 ENCNTR SCREEN MAMMOGRAM FOR MALIGNANT NEOPLASM OF ANGELA COMPARISON: Multiple since 2008 TECHNIQUE: Standard craniocaudal and mediolateral oblique views of each breast recorded using digita l acquisition and breast tomosynthesis. LIMITATIONS: None. FINDINGS: Findings present which are benign by mammographic criteria. No suspicious masses, calcifi cations or architectural distortion. Pertinent benign findings: Bilateral stable calcifications and breast parenchymal nodules Read with the assistance of CAD. .[facility] - R2 Cenova Version 1.3 .[facility] Imaging - R2 Cenova Version 1.3 .[facility] - R2 Cenova Version 2.4 .[facility] [place] R2 Cenova Version 2.4 .[facility] - R2 E[employer] Clerk Version 9.2 Benign mammographic findings may include one or more of the following: Smooth masses, popcorn/rim/co arse calcifications, asymmetries, post-procedure changes, and lesions with long-standing stability. IMPRESSION: BENIGN MAMMOGRAPHIC FINDINGS. BIRADS 2 BREAST DENSITY: c. The breasts are heterogeneously dense, which may obscure small masses. BIRAD: 2 BENIGN FINDING(S) RECOMMENDATION: RECOMMENDATION: ROUTINE SCREENING Please continue yearly bilateral screening tomosynthesis in August 2018 COMMENT: The patient has been notified of the results by letter per SA requirements. Additional no tification policies are in place for contacting patient with suspicious or incomplete findings. Quality ID #[id number]: The [employer] recommends an annual screening mammogram for women aged 40 years or over. This facility utilizes a reminder system to ensure that all patients receive reminder letters, and/or direct phone calls for appointments. This includes reminders for routine scr eening mammograms, diagnostic mammograms, or other Breast Imaging Interventions when appropriate. Th is patient will be placed in the appropriate reminder system. The [employer] (ACR) has developed recommendations for screening MRI of the breast s in certain patient populations, to be used in conjunction with mammography. Breast MRI surveillanc e may be appropriate for women with more than 20% lifetime risk of developing breast cancer as deter mined by genetic testing, significant family history of the disease, or history of mantle radiation f or Hodgkins Disease. ACR Practice Guidelines 2008. DBT Technology DBT is a type of tomographic mammography. With conventional mammography, overlapping breast tissue ma y make lesions difficult to detect, even with good compression. DBT uses an x-ray tube that rotates a round the breast, taking images at different angles. These images are then combined to create thin sl ices of the breast that the radiologist can view as a 3D reconstruction. The [employer] unit can perform full-field digital mammograms (2D imaging); or DBT (3D imaging); or both, in a combination mode that quickly performs both the mammogram and the tomosynthesis scan while the breast is still compressed. PQRS 6045F: Fluoroscopic imaging is not utilized for breast tomosynthesis. TECHNICAL DOCUMENTATION: FINDING NUMBER: (1) ASSESSMENT: (1) JOB ID: [id number] [employer]- All Rights Reserved
== END ==
LOC: WI 08:16
PROVIDERS: ATTEND Physician Assistant
DX: Z12.31 Encounter for screening mammogram for malignant neoplasm of breast (principal)
CPT/HCPCS: 77063; G0202; 77067

== ENCOUNTER → 2017-10-09 | Outpatient (CLI) | payer MEDICARE, OTHER ==
--- NOTE | 2017-10-09 09:17 | RADIOLOGY REPORT (SQ) ---
EXAM DESCRIPTION: TENISHA SWALLOW COMPLETED DATE/TIME: 10/09/2017 8:51 am REASON FOR STUDY: R13.10 DYSPHAGIA,UNSPECIFIED R13.10 DYSPHAGIA, UNSPECIFIED COMPARISON: None. TECHNIQUE: Videofluoroscopic swallowing examination was performed in conjunction with speech patholo gy. Videofluoroscopic imaging was obtained and reviewed and these are the findings: RADIATION DOSE: FLUORO TIME 2.04 MINUTES 1 images saved to PACS. LIMITATIONS: None FINDINGS: The patient was brought into the fluoro room and placed upright on a modified barium swall ow chair. The patient was then given multiple consistencies mixed with barium to swallow under live fluoroscopic video guidance. According to the Speech Pathologist there was laryngeal penetration see n with thin barium. All other consistencies were swallowed without incident. No aspiration identifi ed. Please refer to the speech pathology report for further details. IMPRESSION: LARYNGEAL PENETRATION WITHOUT ASPIRATION SEEN WITH THIN BARIUM. LPLEASE SEE SPEECH PATH OLOGIST REPORT FOR OTHER FINDINGS AND RECOMMENDATIONS. COMMENT: None Quality ID [id number]: Final reports for procedures using fluoroscopy that document radiation exposure shara kay, or exposure time and number of fluorographic images (if radiation exposure indices are not avail able) TECHNICAL DOCUMENTATION: JOB ID: [id number] [employer]- All Rights Reserved
--- NOTE | 2017-10-09 10:53 | ST Modified Barium Swallow ---
Recommendation - Recommendations Recommendations: Recommend reduced rate of consumption for liquids. No other modifications/recommendations at this time. Medical Diagnoses - Medical Diagnoses Medical Diagnosis Description & ICD-10 Code(s): Dysphagia, R13.10 Other Medical Diagnoses/Co-Morbidities: s/p Thyroidectomy 08/2012, asthma, high blood pressure, high cholesterol, diabetes mellitus, acid reflux. ST Modified Barium Swallow - General Date: 10/09/17 Referring Physician: Dr. Joey Ott Risks/Precautions: None - History History obtained from: Patient -: Medical - Patient reports feeling "choked" with foods, and having to cough frequently with liquids. This has been going on for "a couple months", with no clear start to difficulties. Patient volunteers that she eats and drinks very quickly, and that these issues are reduced when she slows down. Patient reports that she had her thyroid removed approximately 5 years ago, no swallowing difficulties after the surgery. Medications: Patient unable to specifically report medications. Does report taking a medication for reflux, and an inhaler for asthma. Allergies: No known allergies. - Functional Status Prior Functional Status: INDEPENDENT: feeding - independent Current Functional Limitations: feeding - independent - Subjective Patient/caregiver goal(s): better swallow Cognitive-Linguistic Function: WNL Speech Intelligibility: WNL Current Nutritional Means: PO Current PO diet: Regular Current symptoms: Coughing Pain: Patient reports, 0/5 - Objective Assessment: Upright, Left Lateral - Food Trials Used Food trials used: Thin liquids, Pureed, Regular The patient: Was Able to Self Feed - Oral-Motor Skills Dentition: Partial Laryngeal Function: Throat Clear - WNL, Volitional Swallow - WNL - Assessment Oral prep: Normal Labial closure: Adequate Leakage: None Mastication: Lengthy - Reduced dentition Lingual Movement: Normal Oral stage: Normal for this Procedure - Pharyngeal Stage Initiation of Pharyngeal Stage Reflex: Normal Decreased laryngeal elevation: No Reduced Velopharyngeal Closure: no Reduced pressure generation: No reduced tongue-based retraction: No Pre-swallow pooling in valleculae: None Pre-Swallow pooling in pyriforms: None Reduced Thyro-Hyoid approximation: No Reduced epiglottic excursion: No Reduced pharyngeal peristalsis/contraction: No Post-swallow residulas vallecular: None Post-Swallow residuals in pyriforms: None Pharyngeal Stage Comments: With slow sips and bites, no deficits noted. However, therapist cued patient to drink "like you normally would". Patient took 2 large subsequent sips of liquid , began coughing. Penetration of residue post swallow seen, which cleared with cough. - Fall Risk Assessment Medications/Conditions that increase fall risks include: Antidepressants, sedatives, anti-arrhythmic, diuretic, benzodiazipenes, neuroleptics. BP regulation problems, cardiac problems, balance or gait deficits, neurological problems. Is patient considered at risk for falls: no Fall Risk Actions Taken: No action needed - Behavioral Observations During evaluation process patient: was pleasant, was cooperative, able to answer questions - Treatment / Educational Needs: Treatment/Education Needs: Treatment consisted of patient education on the role of the Speech Pathologist. Patient's plan of care and golas were communicated as well as scheduling and attendance policies. Recommendations for initial home program were shared. Patient demonstrated understanding and verbalized agreement. - Impression/Summary Laryngeal Penetration: Yes, Cough, after swallow - on quick sips of thin liquid Consistency: Thin Tracheal Aspiration: no Productive cough: Yes Effective Clearing: yes Compesatory strategies: reduced rate of intake Patient presents with: Oral-Pharyngeal dysph., Mild-Moderate Risk of Aspiration: Minimal Risk of nutritional compromise: WNL - Recommendations Solid diet recommendations: Regular Liquid Diet Modification: Thin Pt/Family education and followup with MD: Yes Dysphagia therapy with SAUTE CHEF: no Recommended techniques: Fully Upright During Meal, Small Bites and Sips - reduced rate of consumption Information, Precautions and Recommendations: Patient (Written), Patient (Verbal ) - Time Total Time: 20 - Plan of Care Patient to follow-up with referring physician: Yes Strategies to optimize patient understanding include:: ongoing assessment of educational needs, implementation of educational strategies, and re-education. - - -: Thank you for the opportunity to work with this patient and his/her family. Should you have any questions about this patient's plan or progress, I can be reached at [phone]. Charge G Code? - - -: Yes ST F.L. Impairment Category - Rationale Based On Rationale Based On: Func. Asses. Tool Results - Swallowing Current G8996: CI 1-19% Impaired Goal G8997: CI 1-19% Impaired Discharge G8998: CI 1-19% Impaired
== END ==
LOC: RAD 08:15
PROVIDERS: ATTEND Internal Medicine Pulmonary Disease
DX: R13.10 Dysphagia, unspecified (principal)
CPT/HCPCS: 74230; 92611; G8996; G8997; G8998

== ENCOUNTER 2017-10-29 21:56 | Emergency (ER) | payer MEDICARE, OTHER ==
[2017-10-29] MEDS ORDERED: LIDOCAINE 2% JELLY 5 ML TUBE TOP ONE (22:18)
--- NOTE | 2017-10-29 22:19 | ER Document Report ---
ED GI/ - General Chief Complaint: Constipation Stated Complaint: CONSTIPATION Time Seen by Provider: 10/29/17 22:07 Notes: Patient is a 72-year-old female comes emergency department for chief complaint of difficulty having a bowel movement, abdominal cramps, and painful hemorrhoids. She states that she drank magnesium citrate, as a result she did have a small hard bowel movement this morning but states she still is having cramping and difficulty with bowel movements. She has had rubber banding of hemorrhoids earlier in the year. She denies any bleeding from the hemorrhoids at this time. She denies any fever, nausea vomiting, or any other complaints. She does not take any opiates. TRAVEL OUTSIDE OF THE [place] IN LAST 30 DAYS: No - Related Data Allergies/Adverse Reactions: No Known Allergies Allergy (Verified 10/29/17 21:57) Past Medical History - General Information source: Patient - Social History Smoking Status: Never Smoker Frequency of alcohol use: None Drug Abuse: None Lives with: Family Family History: Reviewed & Not Pertinent - Past Medical History Cardiac Medical History: Reports: Hx Hypercholesterolemia, Hx Hypertension - MEDICATED Denies: Hx Coronary Artery Disease, Hx Heart Attack Pulmonary Medical History: Reports: Hx Asthma - rescue inhaler, used 1 week ago , Hx COPD, Hx Pneumonia - 2007 Denies: Hx Bronchitis Neurological Medical History: Denies: Hx Cerebrovascular Accident, Hx Seizures Endocrine Medical History: Reports: Hx Diabetes Mellitus Type 2 Renal/ Medical History: Denies: Hx Peritoneal Dialysis GI Medical History: Reports: Hx Gastroesophageal Reflux Disease. Denies: Hx Hepatitis, Hx Hiatal Hernia, Hx Ulcer Musculoskeltal Medical History: Reports Hx Arthritis - Rt hip, Rt knee Infectious Medical History: Denies: Hx Hepatitis Past Surgical History: Reports: Hx Hysterectomy, Hx Orthopedic Surgery - lumbar fusion, Hx Thyroid Surgery. Denies: Hx Mastectomy, Hx Open Heart Surgery, Hx Pacemaker - Immunizations Hx Diphtheria, Pertussis, Tetanus Vaccination: No Hx Pneumococcal Vaccination: 11/12/07 Review of Systems - Review of Systems Constitutional: No symptoms reported EENT: No symptoms reported Cardiovascular: No symptoms reported Respiratory: No symptoms reported Gastrointestinal: See HPI Genitourinary: No symptoms reported Female Genitourinary: No symptoms reported Musculoskeletal: No symptoms reported Skin: No symptoms reported Hematologic/Lymphatic: No symptoms reported Neurological/Psychological: No symptoms reported Physical Exam - Vital signs Vitals: Temp Pulse Resp BP Pulse Ox 98.5 F 84 18 159/112 H 97 10/29/17 21:57 10/29/17 21:57 10/29/17 21:57 10/29/17 21:57 10/29/17 21:57 Interpretation: Normal - General General appearance: Alert, Anxious In distress: Mild - Patient appears uncomfortable - HEENT Head: Normocephalic, Atraumatic Eyes: Normal Pupils: PERRL - Respiratory Respiratory status: No respiratory distress Chest status: Nontender Breath sounds: Normal Chest palpation: Normal - Cardiovascular Rhythm: Regular Heart sounds: Normal auscultation Murmur: No - Abdominal Inspection: Normal Distension: Distended - Questionable very mild distention Bowel sounds: Normal Tenderness: Tender - Mild generalized tenderness, nonspecific, no guarding, no rigidity, no rebound tenderness Organomegaly: No organomegaly - Rectal Stool: No: Black, Bloody Hemorrhoids: External - Multiple external hemorrhoids noted, nonthrombosed, nonbleeding, normal rectal examination otherwise - Back Back: Normal, Nontender - Extremities General upper extremity: Normal inspection, Nontender, Normal color, Normal ROM , Normal temperature General lower extremity: Normal inspection, Nontender, Normal color, Normal ROM , Normal temperature, Normal weight bearing. No: Morelia's sign - Neurological Neuro grossly intact: Yes Cognition: Normal Orientation: AAOx4 Neo Coma Scale Eye Opening: Spontaneous [place] Coma Scale Verbal: Oriented Neo Coma Scale Motor: Obeys Commands [place] Coma Scale Total: 15 Speech: Normal Motor strength normal: LUE, RUE, LLE, RLE Sensory: Normal - Psychological Associated symptoms: Normal affect, Normal mood - Skin Skin Temperature: Warm Skin Moisture: Dry Skin Color: Normal Course - Re-evaluation Re-evalutation: Acute abdominal series shows retained stool, no free air or evidence of obstruction. Patient was given lidocaine topically for the hemorrhoids, discussed recommendations with patient, patient agreed to an enema. Patient tolerated the enema very well, afterwards she had a very large bowel movement. After large bowel movement patient had complete resolution of symptoms. She is smiling now and she states that she feels great and she is ready to leave. Discussed treatment recommendations, follow-up instructions, return precautions with patient in detail. Patient states satisfaction and agreement. - Vital Signs Vital signs: Temp Pulse Resp BP Pulse Ox 98.5 F 73 16 128/61 H 95 12/18/17 21:57 10/30/17 01:24 10/30/17 01:24 10/30/17 01:24 10/30/17 01:24 Discharge - Discharge Clinical Impression: Abdominal pain Qualifiers: Abdominal location: generalized Qualified Code(s): R10.84 - Generalized abdominal pain Hemorrhoids Qualifiers: Hemorrhoid type: unspecified Qualified Code(s): K64.9 - Unspecified hemorrhoids Constipation Qualifiers: Constipation type: unspecified constipation type Qualified Code(s): K59.00 - Constipation, unspecified Condition: Stable Disposition: HOME, SELF-CARE Additional Instructions: You have been treated for the constipation tonight. X-ray does not show any other abnormalities. You most likely will have 1-2 more bowel movements over the next day. If you do not I recommend taking the stool softener for the next 2-3 days. Afterwards increase fiber in your diet and continue to drink plenty of fluids. Please follow-up with your bait packer for additional management of your external hemorrhoids. Return if you worsen including vomiting, returned or worsening abdominal pain, or any other concerning symptoms. Prescriptions: Docusate Sodium [Colace 100 mg Capsule] 100 mg PO ASDIR PRN #30 capsule PRN Reason: Referrals: JANUSZ ALBERT MD [ACTIVE STAFF] - Follow up as needed
[2017-10-29] MEDS ORDERED: MINERAL OIL 30 ML UDCUP PR ONE (23:46)
[2017-10-30] MEDS ORDERED: MINERAL OIL 30 ML UDCUP ONE (00:22)
--- NOTE | 2017-10-30 01:07 | RADIOLOGY REPORT (SQ) ---
EXAM DESCRIPTION: ACUTE ABDOMEN SERIES CLINICAL HISTORY: 72 years, Female, abdominal pain, no bowel movement for several days COMPARISON: None. TECHNIQUE: 4 images LIMITATIONS: None. FINDINGS: No acute cardiopulmonary findings. Paucity of bowel gas includes moderate stool retention in the right and transverse colon. Obstruction or perforation. Right upper abdominal clips. 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 IMPRESSION: No acute findings. 2010 [employer]- All Rights Reserved
[2017-10-30 01:26] VITALS: BP 128/61
== END 2017-10-30 01:26 | disposition home or self-care (01) ==
LOC: ER 21:56
DX: K59.00 Constipation, unspecified (principal); K64.4 Residual hemorrhoidal skin tags; R10.84 Generalized abdominal pain; I10 Essential (primary) hypertension; J44.9 Chronic obstructive pulmonary disease, unspecified; E11.9 Type 2 diabetes mellitus without complications
CPT/HCPCS: 99283; 74022; J3490

== ENCOUNTER 2017-12-28 22:07 | Emergency (ER) | payer MEDICARE, OTHER ==
--- NOTE | 2017-12-29 00:52 | ER Document Report ---
ED General - General Chief Complaint: High Blood Pressure Stated Complaint: BLOOD PRESSURE ISSUES/HEADACHE Time Seen by Provider: 12/29/17 00:24 Notes: Patient is a 72-year-old female that comes emergency department for chief complaint of headache, high blood pressure, and feeling like she is off balance when she walks. Headache started several days ago, she was evaluated initially , given amlodipine 5 mg for elevated blood pressure, she went back yesterday and was placed on 10 mg of amlodipine daily, this is in addition to her metoprolol and Lasix, she states that she is still having headaches. She states she hurts in her left neck and it hurts when she moves and turns her head to the left. She denies injury. She denies focal numbness or weakness although she states she generally feels weak in her legs. She denies fever or chills. Past medical history of hypothyroidism, type 2 diabetes, hyperlipidemia , hypertension. She takes aspirin but no other blood thinners. TRAVEL OUTSIDE OF THE [place] IN LAST 30 DAYS: No - Related Data Allergies/Adverse Reactions: No Known Allergies Allergy (Verified 10/29/17 21:57) Past Medical History - General Information source: Patient - Social History Smoking Status: Never Smoker Frequency of alcohol use: None Drug Abuse: None Lives with: Family Family History: Reviewed & Not Pertinent - Past Medical History Cardiac Medical History: Reports: Hx Hypercholesterolemia, Hx Hypertension - MEDICATED Denies: Hx Coronary Artery Disease, Hx Heart Attack Pulmonary Medical History: Reports: Hx Asthma - rescue inhaler, used 1 week ago , Hx COPD, Hx Pneumonia - 2007 Denies: Hx Bronchitis Neurological Medical History: Denies: Hx Cerebrovascular Accident, Hx Seizures Endocrine Medical History: Reports: Hx Diabetes Mellitus Type 1, Hx Diabetes Mellitus Type 2 Renal/ Medical History: Denies: Hx Peritoneal Dialysis GI Medical History: Reports: Hx Gastroesophageal Reflux Disease. Denies: Hx Hepatitis, Hx Hiatal Hernia, Hx Ulcer Musculoskeltal Medical History: Reports Hx Arthritis - Rt hip, Rt knee Infectious Medical History: Denies: Hx Hepatitis Past Surgical History: Reports: Hx Hysterectomy, Hx Orthopedic Surgery - lumbar fusion, Hx Thyroid Surgery. Denies: Hx Mastectomy, Hx Open Heart Surgery, Hx Pacemaker - Immunizations Hx Diphtheria, Pertussis, Tetanus Vaccination: No Hx Pneumococcal Vaccination: 11/12/07 Review of Systems - Review of Systems Constitutional: No symptoms reported EENT: No symptoms reported Cardiovascular: No symptoms reported Respiratory: No symptoms reported Gastrointestinal: No symptoms reported Genitourinary: No symptoms reported Female Genitourinary: No symptoms reported Musculoskeletal: See HPI Skin: No symptoms reported Hematologic/Lymphatic: No symptoms reported Neurological/Psychological: See HPI Physical Exam - Vital signs Vitals: Temp Pulse Resp BP Pulse Ox 98.3 F 79 20 192/101 H 97 12/28/17 22:12 12/28/17 22:12 12/28/17 22:12 12/28/17 22:12 12/28/17 22:12 Interpretation: Normal - General General appearance: Appears well In distress: None - HEENT Head: Normocephalic, Atraumatic Eyes: Normal Pupils: PERRL - Respiratory Respiratory status: No respiratory distress Chest status: Nontender Breath sounds: Normal. No: Decreased air movement, Wheezing Chest palpation: Normal - Cardiovascular Rhythm: Regular. No: Tachycardia Heart sounds: Normal auscultation, S1 appreciated, S2 appreciated Murmur: No - Abdominal Inspection: Normal Distension: No distension Bowel sounds: Normal Tenderness: Nontender. No: Tender, Guarding - Back Back: Tender - Tenderness in the left paracervical muscles, this is specific and she winces and complains, limited lateral range of motion of the neck, otherwise normal range of motion of the neck with no nuchal rigidity. No midline tenderness, normal upper and lower extremity range of motion, normal distal neurovascular exam. - Extremities General upper extremity: Normal inspection, Nontender, Normal color, Normal ROM , Normal temperature General lower extremity: Normal inspection, Nontender, Normal color, Normal ROM , Normal temperature, Normal weight bearing. 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 She did not even falter. She has a normal neurological exam. She does have limited range of motion of the neck when turning it laterally and has tender paracervical muscles and winces when these are palpated. Possibly tension headaches. CAT scan performed, shows no acute abnormality after 3 days of reported symptoms. Patient given oral medication for her pain, initially she states it did not help, however on reevaluation again she states her headache is gone. I have discussed lumbar puncture with patient to rule out subarachnoid hemorrhage because I do not know the exact cause of her headache even though I suspect tension headache, after discussing the risks and benefits this was declined. CBC, chemistry, chest x-ray, general workup unremarkable except for mild hypokalemia, she is on Lasix and takes supplement for this. Given a dose here. Patient asking for same medication given here, requesting pain medication for her neck, patient was provided with this along with stool softener, - Vital Signs Vital signs: Temp Pulse Resp BP Pulse Ox 98.3 F 79 23 H 153/93 H 93 12/28/17 22:12 12/28/17 22:12 12/29/17 05:01 12/29/17 05:01 12/29/17 05:01 - Laboratory Result Diagrams: 12/29/17 02:44 12/29/17 02:55 Laboratory results interpreted by me: 12/29/17 12/29/17 12/29/17 02:07 02:44 02:55 RDW 14.8 H Potassium 3.1 L Est GFR (Non-Af Amer) 53 L Glucose 131 H Urine Protein 30 H Discharge - Discharge Clinical Impression: Neck pain, Elevated blood pressure reading Headache Qualifiers: Headache type: unspecified Headache chronicity pattern: acute headache Intractability: not intractable Qualified Code(s): R51 - Headache Condition: Stable Disposition: HOME, SELF-CARE Additional Instructions: Your symptoms and response to treatment are suggestive of a tension headache along with the painful muscles in your neck. I recommend placing the lidocaine patch on her neck if needed, take the pain medication if needed, take Tylenol otherwise if you do not need a stronger pain medication. If you take the pain medication given, also take the Colace stool softener to avoid constipation. Apply heat to the neck as well, avoid lifting and twisting. As the muscle pain decreases your headaches should resolve. Your potassium was slightly low today, take your potassium supplement, follow- up with your primary care to have this rechecked. Return if you worsen including returned or severe headache, fever, loss of vision, weakness on one side of your body, vomiting, or any other concerning symptoms Prescriptions: Docusate Sodium [Colace 100 mg Capsule] 100 mg PO ASDIR PRN #30 capsule PRN Reason: Lidocaine [Lidoderm 5% (700 mg) Transdermal Patch] 1 patch TP DAILY #30 adh..patch Oxycodone HCl/Acetaminophen [Percocet 5-325 mg Tablet] 1 - 2 tab PO Q4H PRN #15 tablet PRN Reason: Referrals: SNEHAL BARRIOS MD [Primary Care Provider] - Follow up as needed
--- NOTE | 2017-12-29 01:45 | RADIOLOGY REPORT (SQ) ---
EXAM DESCRIPTION: CT HEAD WITHOUT CLINICAL HISTORY: 72 years Female, headache, imbalance COMPARISON: None. TECHNIQUE: No contrast. This exam was performed according to our departmental dose-optimization program, which includes automated exposure control, adjustment of the mA and/or kV according to patient size and/or use of iterative reconstruction technique. FINDINGS: No hemorrhage or infarct. No mass, mass effect, or midline shift. 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 1.0 cm osteoma/exostosis of the anterior left middle fossa. Prominent falcine calcification. Brain and extra-axial structures appear otherwise intact. IMPRESSION: No acute findings.
--- NOTE | 2017-12-29 01:55 | RADIOLOGY REPORT (SQ) ---
EXAM DESCRIPTION: CHEST SINGLE VIEW CLINICAL HISTORY: 72 years Female, weakness COMPARISON: 01/14/2017 NUMBER OF VIEWS/TECHNIQUE: 1/AP LIMITATIONS: None. FINDINGS: Normal lung volume, clear parenchyma, normal cardiac silhouette, and intact bony thorax. IMPRESSION: No acute cardiopulmonary findings.
[2017-12-29] MEDS ORDERED: ONDANSETRON 4 MG TAB.RAPDIS PO ONE ×2 (02:18→04:17)
[2017-12-29] MEDS ORDERED: OXYCODONE-ACETAMINOPHEN 5-325 MG TABLET PO ONE ×2 (02:18→04:17)
[2017-12-29 02:25] LABS: APPEARANCE,URINE SLIGHTLY-CLOUDY; BILIRUBIN,URINE NEGATIVE (NEGATIVE); COLOR,URINE YELLOW; GLUCOSE, URINE NEGATIVE (NEGATIVE); KETONES,URINE NEGATIVE (NEGATIVE); LEUKOCYTE ESTERASE,URINE NEGATIVE (NEGATIVE); NITRITE,URINE NEGATIVE (NEGATIVE); PROTEIN,URINE 30 mg/dL (NEGATIVE); URINE SPECIFIC GRAVITY 1.024; UROBILINOGEN,URINE NEGATIVE mg/dL (<2.0)
[2017-12-29 02:40] LABS: CREATINE KINASE MB 0.35 ng/mL (<4.55)
[2017-12-29 02:42] LABS: TROPONIN I QNS ng/mL
[2017-12-29 02:52] LABS: ABSOLUTE BASOPHILS # (AUTO) 0.1 10^3/uL (0.0-0.2); ABSOLUTE EOSINOPHILS # (AUTO) 0.3 10^3/uL (0.0-0.6); ABSOLUTE MONOCYTES (AUTO) 0.7 10^3/uL (0.1-1.4); ABSOLUTE NEUT (AUTO) 3.4 10^3/uL (1.7-8.2); BASOPHILS % (AUTO) 0.7 % (0-2); EOSINOPHILS % (AUTO) 3.6 % (0-6); HEMATOCRIT 39.5 % (36.0-47.0); LYMPHOCYTES % (AUTO) 40.9 % (13-45); MEAN CORPUSCULAR HEMOGLOBIN 30.1 pg (27.0-33.4); MEAN CORPUSCULAR VOLUME 91 fl (80-97); MONOCYTES % (AUTO) 9.1 % (3-13); PLATELET COUNT 317 10^3/uL (150-450); RED BLOOD COUNT 4.33 10^6/uL (3.72-5.28); RED CELL DISTRIBUTION WIDTH 14.8 % (11.5-14.0); SEGMENTED NEUTROPHILS % (AUTO) 45.7 % (42-78); TOTAL CELLS COUNTED % (AUTO) 100 %; WHITE BLOOD COUNT 7.4 10^3/uL (4.0-10.5)
[2017-12-29 03:51] LABS: ALANINE AMINOTRANSFERASE 20 U/L (9-52); ALBUMIN 4.3 g/dL (3.5-5.0); ALKALINE PHOSPHATASE 91 U/L (38-126); ANION GAP 15 (5-19); ASPARTATE AMINO TRANSFERASE 20 U/L (14-36); BILIRUBIN,DIRECT 0.4 mg/dL (0.0-0.4); BILIRUBIN,TOTAL 0.5 mg/dL (0.2-1.3); BLOOD UREA NITROGEN 13 mg/dL (7-20); CALCIUM 10.1 mg/dL (8.4-10.2); CARBON DIOXIDE 26 mmol/L (22-30); CHLORIDE 103 mmol/L (98-107); CREATINE KINASE 55 U/L (30-135); GLUCOSE 131 mg/dL (75-110); POTASSIUM 3.1 mmol/L (3.6-5.0); SODIUM 143.8 mmol/L (137-145); TOTAL PROTEIN 7.7 g/dL (6.3-8.2)
[2017-12-29] MEDS ORDERED: METOCLOPRAMIDE HCL INJ/PF 10 MG/2 ML SDV IV ONE (04:17)
[2017-12-29] MEDS ORDERED: DIPHENHYDRAMINE HCL 50 MG/ML VIAL IV ONE (04:18)
[2017-12-29] MEDS ORDERED: POTASSIUM CHLORIDE 10 MEQ TABLET.SA PO ONE ×2 (05:47→05:56)
[2017-12-29 06:03] VITALS: BP 131/83
--- NOTE | 2017-12-29 09:57 | EKG REPORT ---
SEVERITY:- ABNORMAL ECG - SINUS RHYTHM PROBABLE LEFT VENTRICULAR HYPERTROPHY BORDERLINE PROLONGED QT INTERVAL : Confirmed by: Nesha Romero 29-Dec-2017 09:56:07
== END 2017-12-29 06:21 | disposition home or self-care (01) ==
LOC: ER 22:07
DX: M54.2 Cervicalgia (principal); R03.0 Elevated blood-pressure reading, without diagnosis of hypertension; R51 Headache; R53.1 Weakness; E03.9 Hypothyroidism, unspecified; E11.9 Type 2 diabetes mellitus without complications; E78.5 Hyperlipidemia, unspecified; I10 Essential (primary) hypertension; Z79.899 Other long term (current) drug therapy
CPT/HCPCS: 93005; 99284; 36415; 82553; 82550; 85025; 80053; 81001; 84484; 71045; 70450; 93010; A9270 ×3; S0119

== ENCOUNTER → 2018-01-24 | Outpatient (CLI) | payer MEDICARE ==
--- NOTE | 2018-01-24 13:03 | RADIOLOGY REPORT (SQ) ---
EXAM DESCRIPTION: KNEE LEFT 4 VIEWS COMPLETED DATE/TIME: 01/24/2018 12:17 pm REASON FOR STUDY: PAIN IN LEFT KNEE M25.562 PAIN IN LEFT KNEE COMPARISON: None. NUMBER OF VIEWS: Four views. TECHNIQUE: AP, lateral, and both oblique radiographic images acquired of the left knee. LIMITATIONS: None. FINDINGS: MINERALIZATION: Normal. BONES: No acute fracture or dislocation. No worrisome bone lesions. JOINT: There is a minimal joint effusion. There are very small posterior patellar spurs. SOFT TISSUES: No soft tissue swelling. No radio-opaque foreign body. OTHER: No other significant finding. IMPRESSION: Minimal patellofemoral degenerative joint changes. No acute abnormality. TECHNICAL DOCUMENTATION: JOB ID: [id number] [employer]- All Rights Reserved Reading location - IP/workstation name: [email or web address]
== END ==
LOC: OD 12:06
PROVIDERS: ATTEND Family Medicine
DX: M25.562 Pain in left knee (principal)

== ENCOUNTER → 2018-04-18 | Outpatient (CLI) | payer MEDICARE, OTHER ==
--- NOTE | 2018-04-18 10:12 | RADIOLOGY REPORT (SQ) ---
EXAM DESCRIPTION: CT CHEST WITHOUT COMPLETED DATE/TIME: 04/18/2018 9:19 am REASON FOR STUDY: SHORTNESS OF BREATH R06.02 SHORTNESS OF BREATH COMPARISON: 01/15/2017. TECHNIQUE: CT scan performed of the chest without intravenous contrast. Images reviewed with lung, soft tissue and bone windows. Reconstructed coronal and sagittal MPR images reviewed. All images st ored on PACS. All CT scanners at this facility use dose modulation, iterative reconstruction, and/or weight based d osing when appropriate to reduce radiation dose to as low as reasonably achievable (ALARA). [facility]: Dose Right [facility]: CareDose [facility]: Dose Right [facility]: Teradose 4D [facility]: ClaimIt RADIATION DOSE: CT Rad equipment meets quality standard of care and radiation dose reduction techniq ues were employed. CTDIvol: 18.5 mGy. DLP: 740 mGy-cm. mGy. LIMITATIONS: No technical limitations. FINDINGS: LUNGS AND PLEURA: No masses, infiltrates, pneumothorax. No pleural effusions, calcificati ons. HILAR AND MEDIASTINAL STRUCTURES: No identified masses or abnormal nodes. No obvious aneurysm. HEART AND VASCULAR STRUCTURES: No aneurysm. No pericardial effusion. UPPER ABDOMEN: No significant findings. Limited exam. THYROID AND OTHER SOFT TISSUES: No masses. No adenopathy. BONES: No significant finding. HARDWARE: None in the chest. OTHER: No other significant findings. IMPRESSION: NO SIGNIFICANT FINDING ON NON-CONTRASTED CHEST CT. TECHNICAL DOCUMENTATION: JOB ID: [id number] Quality ID # [id number]: Final reports with documentation of one or more dose reduction techniques (e.g., Au tomated exposure control, adjustment of the mA and/or kV according to patient size, use of iterative reconstruction technique) 2010 [employer]- All Rights Reserved Reading location - IP/workstation name: [email or web address]
== END ==
LOC: RAD 09:05
PROVIDERS: ATTEND Physician Assistant
DX: R06.02 Shortness of breath (principal)
CPT/HCPCS: 71250

== ENCOUNTER 2018-05-17 18:09 | Emergency (ER) | payer MEDICARE, OTHER ==
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
--- NOTE | 2018-05-17 19:08 | RADIOLOGY REPORT (SQ) ---
EXAM DESCRIPTION: ANKLE LEFT COMPLETE COMPLETED DATE/TIME: 05/17/2018 6:52 pm REASON FOR STUDY: injury COMPARISON: None. NUMBER OF VIEWS: Three views. TECHNIQUE: AP, lateral, and oblique radiographic images acquired of the left ankle. LIMITATIONS: None. FINDINGS: MINERALIZATION: Normal. BONES: No acute fracture or dislocation. No worrisome bone lesions. JOINTS: No effusions. SOFT TISSUES: Considerable soft tissue swelling at the ankle. OTHER: No other significant finding. IMPRESSION: Soft tissue swelling. No fracture. TECHNICAL DOCUMENTATION: JOB ID: [id number] [employer]- All Rights Reserved Reading location - IP/workstation name: [email or web address]
--- NOTE | 2018-05-17 19:09 | RADIOLOGY REPORT (SQ) ---
EXAM DESCRIPTION: TIBIA FIBULA LEFT COMPLETED DATE/TIME: 05/17/2018 6:52 pm REASON FOR STUDY: trauma COMPARISON: None. NUMBER OF VIEWS: Two views. TECHNIQUE: Two radiographic images acquired of the left tibia and fibula to include the knee and ank le in at least one projection. LIMITATIONS: None. FINDINGS: MINERALIZATION: Normal. BONES: No acute fracture or dislocation. No worrisome bone lesions. SOFT TISSUES: Soft tissue swelling of the ankle. OTHER: No other significant finding. IMPRESSION: NEGATIVE STUDY OF THE LEFT TIBIA AND FIBULA. NO RADIOGRAPHIC EVIDENCE OF ACUTE INJURY. TECHNICAL DOCUMENTATION: JOB ID: [id number] [employer]- All Rights Reserved Reading location - IP/workstation name: [email or web address]
--- NOTE | 2018-05-17 19:09 | RADIOLOGY REPORT (SQ) ---
EXAM DESCRIPTION: FOOT LEFT COMPLETE COMPLETED DATE/TIME: 05/17/2018 6:52 pm REASON FOR STUDY: Injury COMPARISON: None. NUMBER OF VIEWS: Three views. TECHNIQUE: AP, lateral and oblique radiographic images acquired of the left foot. LIMITATIONS: None. FINDINGS: MINERALIZATION: Normal. BONES: No acute fracture or dislocation. No worrisome bone lesions. JOINTS: No effusions. SOFT TISSUES: Soft tissue swelling at the ankle. OTHER: No other significant finding. IMPRESSION: NEGATIVE STUDY OF THE LEFT FOOT. NO RADIOGRAPHIC EVIDENCE OF ACUTE INJURY. TECHNICAL DOCUMENTATION: JOB ID: [id number] [employer]- All Rights Reserved Reading location - IP/workstation name: [email or web address]
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
[2018-05-17] MEDS: HYDROCODONE/ACETAMINOPHEN 5-325 MG TABLET PO ONE (19:34)
[2018-05-17 20:19] VITALS: BP 122/84
== END 2018-05-17 20:23 | disposition home or self-care (01) ==
LOC: ER 18:09
DX: S90.32XA Contusion of left foot, initial encounter (principal); S90.02XA Contusion of left ankle, initial encounter; V09.09XA Pedestrian injured in nontraffic accident involving other motor vehicles, initial encounter; Y93.89 Activity, other specified; Y92.009 Unspecified place in unspecified non-institutional (private) residence as the place of occurrence of the external cause; I10 Essential (primary) hypertension; E11.9 Type 2 diabetes mellitus without complications; J44.9 Chronic obstructive pulmonary disease, unspecified; Z88.5 Allergy status to narcotic agent
CPT/HCPCS: 99283; 73610; 73630; 73590; 29515; A9270

== ENCOUNTER → 2018-05-31 | Outpatient (CLI) | payer MEDICARE, OTHER ==
[2018-05-31 14:35] LABS: ANION GAP 13 (5-19); BLOOD UREA NITROGEN 17 mg/dL (7-20); CALCIUM 9.7 mg/dL (8.4-10.2); CARBON DIOXIDE 30 mmol/L (22-30); CHLORIDE 104 mmol/L (98-107); GLUCOSE 142 mg/dL (75-110); POTASSIUM 3.7 mmol/L (3.6-5.0); SODIUM 147.2 mmol/L (137-145)
[2018-05-31 14:44] LABS: ABSOLUTE BASOPHILS # (AUTO) 0.1 10^3/uL (0.0-0.2); ABSOLUTE EOSINOPHILS # (AUTO) 0.3 10^3/uL (0.0-0.6); ABSOLUTE MONOCYTES (AUTO) 0.5 10^3/uL (0.1-1.4); ABSOLUTE NEUT (AUTO) 3.7 10^3/uL (1.7-8.2); BASOPHILS % (AUTO) 0.9 % (0-2); EOSINOPHILS % (AUTO) 4.7 % (0-6); HEMATOCRIT 38.8 % (36.0-47.0); HEMOGLOBIN 12.9 g/dL (12.0-15.5); LYMPHOCYTES % (AUTO) 30.2 % (13-45); MEAN CORPUSCULAR HEMOGLOBIN 30.2 pg (27.0-33.4); MEAN CORPUSCULAR HGB CONC 33.2 g/dL (32.0-36.0); MEAN CORPUSCULAR VOLUME 91 fl (80-97); MONOCYTES % (AUTO) 8.1 % (3-13); PLATELET COUNT 277 10^3/uL (150-450); RED BLOOD COUNT 4.28 10^6/uL (3.72-5.28); RED CELL DISTRIBUTION WIDTH 15.2 % (11.5-14.0); SEGMENTED NEUTROPHILS % (AUTO) 56.1 % (42-78); TOTAL CELLS COUNTED % (AUTO) 100 %; WHITE BLOOD COUNT 6.7 10^3/uL (4.0-10.5)
[2018-05-31 15:53] LABS: FREE T3 2.39 pg/mL (2.77-5.27); FREE T4 (FREE THYROXINE) 1.05 ng/dL (0.78-2.19)
[2018-05-31 16:07] LABS: THYROID STIMULATING HORMONE 4.94 uIU/mL (0.47-4.68)
== END ==
LOC: LAB 13:13
PROVIDERS: ATTEND Internal Medicine Endocrinology, Diabetes & Metabolism
DX: E89.0 Postprocedural hypothyroidism (principal); C73 Malignant neoplasm of thyroid gland; Z79.899 Other long term (current) drug therapy; R68.89 Other general symptoms and signs; Z68.41 Body mass index [BMI] 40.0-44.9, adult
CPT/HCPCS: 36415; 80048; 84439; 84443; 84481; 85025

== ENCOUNTER → 2018-07-11 | Outpatient (CLI) | payer MEDICARE, OTHER ==
[2018-07-12 12:38] LABS: ANTICHROMATIN AB <0.2 AI (0.0-0.9); CENTROMERE B AB <0.2 AI (0.0-0.9); JO-1 ANTIBODY (ANACOMP) <0.2 AI (0.0-0.9); RNP AB <0.2 AI (0.0-0.9); SCLERODERMA-70 ANTIBODIES <0.2 AI (0.0-0.9); SJOGREN'S ANTI-SS-B AB <0.2 AI (0.0-0.9); SJOGREN'S SS-A ANTIBODY <0.2 AI (0.0-0.9); SMITH AB ANA <0.2 AI (0.0-0.9)
[2018-07-12 14:58] LABS: DNA DOUBLE STRAND ANTIBODY ANA <1 IU/mL (0-9)
[2018-07-12 17:37] LABS: CYTOPLASMIC (C-ANCA) <1:20 titer (Neg:<1:20)
[2018-07-13 15:10] LABS: ATYPICAL PANCA <1:20 titer (Neg:<1:20); PERINUCLEAR (P-ANCA) <1:20 titer (Neg:<1:20)
== END ==
LOC: OD 12:09
PROVIDERS: ATTEND Physician Assistant
DX: R94.2 Abnormal results of pulmonary function studies (principal)
CPT/HCPCS: 36415; 86021; 86225; 86235; 86430

== ENCOUNTER → 2018-08-19 | Outpatient (CLI) | payer MEDICARE, OTHER ==
--- NOTE | 2018-08-19 16:43 | WOMENS IMAGING REPORT ---
EXAM DESCRIPTION: 3D SCREENING MAMMO BILAT COMPLETED DATE/TIME: 08/19/2018 1:23 pm REASON FOR STUDY: SCREENING MAMMO Z12.31 ENCNTR SCREEN MAMMOGRAM FOR MALIGNANT NEOPLASM OF ANGELA COMPARISON: Multiple since 2008 TECHNIQUE: Standard craniocaudal and mediolateral oblique views of each breast recorded using digita l acquisition and breast tomosynthesis. LIMITATIONS: None. FINDINGS: Findings present which are benign by mammographic criteria. No suspicious masses, calcifi cations or architectural distortion. Pertinent benign findings: Stable bilateral skin and breast parenchymal calcifications. Stable subce ntimeter mammographic nodule left breast 1 o'clock position compared to 2009 Read with the assistance of CAD. .[facility] - R2 Cenova Version 1.3 .[facility] - R2 Cenova Version 1.3 .[facility] - R2 Cenova Version 2.4 .[facility] - R2 Cenova Version 2.4 .[facility] - R2 [employer] Version 9.2 Benign mammographic findings may include one or more of the following: Smooth masses, popcorn/rim/co arse calcifications, asymmetries, post-procedure changes, and lesions with long-standing stability. IMPRESSION: BENIGN MAMMOGRAPHIC FINDINGS. BIRADS 2 BREAST DENSITY: c. The breasts are heterogeneously dense, which may obscure small masses. BIRAD: 2 BENIGN FINDING(S) RECOMMENDATION: RECOMMENDATION: ROUTINE SCREENING Please continue yearly bilateral screening tomosynthesis in August 2019. COMMENT: The patient has been notified of the results by letter per [place] requirements. Additional no tification policies are in place for contacting patient with suspicious or incomplete findings. Quality ID #[id number]: The [employer] [employer] recommends an annual screening mammogram for women aged 40 years or over. This facility utilizes a reminder system to ensure that all patients receive reminder letters, and/or direct phone calls for appointments. This includes reminders for routine scr eening mammograms, diagnostic mammograms, or other Breast Imaging Interventions when appropriate. Th is patient will be placed in the appropriate reminder system. The [place] [employer] (ACR) has developed recommendations for screening MRI of the breast s in certain patient populations, to be used in conjunction with mammography. Breast MRI surveillanc e may be appropriate for women with more than 20% lifetime risk of developing breast cancer as deter mined by genetic testing, significant family history of the disease, or history of mantle radiation f or Hodgkins Disease. ACR Practice Guidelines 2008. DBT Technology DBT is a type of tomographic mammography. With conventional mammography, overlapping breast tissue ma y make lesions difficult to detect, even with good compression. DBT uses an x-ray tube that rotates a round the breast, taking images at different angles. These images are then combined to create thin sl ices of the breast that the radiologist can view as a 3D reconstruction. The Hologic unit can perform full-field digital mammograms (2D imaging); or DBT (3D imaging); or both, in a combination mode that quickly performs both the mammogram and the tomosynthesis scan while the breast is still compressed. PQRS 6045F: Fluoroscopic imaging is not utilized for breast tomosynthesis. TECHNICAL DOCUMENTATION: FINDING NUMBER: (1) ASSESSMENT: (1) JOB ID: [id number] [employer]- All Rights Reserved Reading location - IP/workstation name: [facility]-[email or web address]
== END ==
LOC: WI 07:47
PROVIDERS: ATTEND Physician Assistant
DX: Z12.31 Encounter for screening mammogram for malignant neoplasm of breast (principal)
CPT/HCPCS: 77063; 77067

== ENCOUNTER → 2018-09-03 | Outpatient (CLI) | payer MEDICARE, OTHER ==
--- NOTE | 2018-09-03 13:49 | WOMENS IMAGING REPORT ---
EXAM DESCRIPTION: BONE DENSITY HIP/SPINE COMPLETED DATE/TIME: 09/03/2018 1:35 pm REASON FOR STUDY: BONE DENSITY TEST/M81.0 M81.0 AGE-RELATED OSTEOPOROSIS W/O CURRENT PATHOLOGICAL FRAC COMPARISON: 1036. TECHNIQUE: Dual-Energy X-ray Absorptiometry (DEXA) of the hip and forearm. LIMITATIONS: None. FINDINGS: HIP: The bone mineral density (BMD) measured in the left hip correlates with a T-score of -0.3, which is n ormal as defined by the World Health Organization. FOREARM: The bone mineral density (BMD) measured in the left forearm correlates with a T-score of 1.2 which is normal as defined by the World Health Organization. IMPRESSION: 1. HIP: NORMAL. 2. FOREARM: NORMAL. COMMENT: The World Health Organization defines low BMD as follows: T-score: Normal: Greater than -1.0 Osteopenia: Between -1.0 and -2.5 Osteoporosis: Less than -2.5 without fractures Established osteoporosis: Less than -2.5 with fractures In general, you may wish to consider: Diagnosis Treatment Follow-up DEXA Normal BMD Prevention 2-3 years Osteopenia Prevention/Therapy 1-2 years Osteoporosis Therapy Yearly TECHNICAL DOCUMENTATION: JOB ID: [id number] [employer]- All Rights Reserved Reading location - IP/workstation name: [email or web address]
== END ==
LOC: WI 13:10
PROVIDERS: ATTEND Family Medicine
DX: M81.0 Age-related osteoporosis without current pathological fracture (principal)
CPT/HCPCS: 77080

== ENCOUNTER → 2018-09-13 | Outpatient (CLI) | payer MEDICARE, OTHER ==
--- NOTE | 2018-09-13 11:15 | RADIOLOGY REPORT (SQ) ---
EXAM DESCRIPTION: CHEST PA/LATERAL COMPLETED DATE/TIME: 09/13/2018 11:01 am REASON FOR STUDY: PRE OP COMPARISON: 07/24/2016 EXAM PARAMETERS: NUMBER OF VIEWS: two views TECHNIQUE: Digital Frontal and Lateral radiographic views of the chest acquired. RADIATION DOSE: NA LIMITATIONS: none FINDINGS: LUNGS AND PLEURA: No opacities, masses or pneumothorax. No pleural effusion. MEDIASTINUM AND HILAR STRUCTURES: No masses or contour abnormalities. HEART AND VASCULAR STRUCTURES: Borderline cardiomegaly. No evidence for failure. BONES: No acute findings. HARDWARE: None in the chest. OTHER: No other significant finding. IMPRESSION: 1. NO SIGNIFICANT RADIOGRAPHIC FINDING IN THE CHEST. TECHNICAL DOCUMENTATION: JOB ID: [id number] [employer]- All Rights Reserved Reading location - IP/workstation name: [email or web address]
[2018-09-13 11:42] LABS: ABSOLUTE BASOPHILS # (AUTO) 0.1 10^3/uL (0.0-0.2); ABSOLUTE EOSINOPHILS # (AUTO) 0.3 10^3/uL (0.0-0.6); ABSOLUTE LYMPHOCYTES (AUTO) 1.8 10^3/uL (0.5-4.7); ABSOLUTE MONOCYTES (AUTO) 0.6 10^3/uL (0.1-1.4); EOSINOPHILS % (AUTO) 5.6 % (0-6); HEMOGLOBIN 12.6 g/dL (12.0-15.5); LYMPHOCYTES % (AUTO) 31.1 % (13-45); MEAN CORPUSCULAR HEMOGLOBIN 30.4 pg (27.0-33.4); MEAN CORPUSCULAR HGB CONC 33.1 g/dL (32.0-36.0); MEAN CORPUSCULAR VOLUME 92 fl (80-97); MONOCYTES % (AUTO) 9.9 % (3-13); PLATELET COUNT 274 10^3/uL (150-450); RED BLOOD COUNT 4.14 10^6/uL (3.72-5.28); RED CELL DISTRIBUTION WIDTH 14.6 % (11.5-14.0); SEGMENTED NEUTROPHILS % (AUTO) 52.4 % (42-78); TOTAL CELLS COUNTED % (AUTO) 100 %; WHITE BLOOD COUNT 5.8 10^3/uL (4.0-10.5)
[2018-09-13 11:59] LABS: ANION GAP 13 (5-19); BLOOD UREA NITROGEN 15 mg/dL (7-20); CALCIUM 9.5 mg/dL (8.4-10.2); CARBON DIOXIDE 31 mmol/L (22-30); CHLORIDE 102 mmol/L (98-107); GLUCOSE 128 mg/dL (75-110); POTASSIUM 4.2 mmol/L (3.6-5.0); SODIUM 145.8 mmol/L (137-145)
--- NOTE | 2018-09-13 12:40 | EKG REPORT ---
SEVERITY:- NORMAL ECG - SINUS RHYTHM : Confirmed by: Kathryn Childers MD 13-Sep-2018 12:40:05
== END ==
LOC: OD 09:51
PROVIDERS: ATTEND Orthopaedic Surgery
DX: Z01.810 Encounter for preprocedural cardiovascular examination (principal); Z01.812 Encounter for preprocedural laboratory examination; Z01.818 Encounter for other preprocedural examination
CPT/HCPCS: 36415; 71046; 80048; 85025; 93005; 93010

== ENCOUNTER 2018-10-10 09:25 | Day surgery (SDC) | payer MEDICARE, OTHER ==
[2018-09-30 13:22] LABS: APPEARANCE,URINE SLIGHTLY-CLOUDY; BILIRUBIN,URINE NEGATIVE (NEGATIVE); COLOR,URINE YELLOW; GLUCOSE, URINE 150 mg/dL (NEGATIVE); KETONES,URINE NEGATIVE (NEGATIVE); LEUKOCYTE ESTERASE,URINE NEGATIVE (NEGATIVE); NITRITE,URINE NEGATIVE (NEGATIVE); PROTEIN,URINE NEGATIVE (NEGATIVE); URIC ACID CRYSTALS,URINE MODERATE /HPF; URINE SPECIFIC GRAVITY 1.019; UROBILINOGEN,URINE NEGATIVE mg/dL (<2.0)
[~2018-10-10 09:25] MED LIST: LACTATED RINGERS 1000 ML IV PRN; LIDOCAINE 0.5% INJ-PF (5 MG/ML) 50 ML SDV SUBCUT PRN; VANCOMYCIN HCL 2,000 MG in DEXTROSE 5%-WATER 500 ML IV PRN
[2018-10-10] MEDS ORDERED: SUCCINYLCHOLINE CHLORIDE INJ 200 MG/10 ML VIAL ONE (10:00)
[2018-10-10 11:09] LABS: POTASSIUM 3.4 mmol/L (3.6-5.0)
--- NOTE | 2018-10-10 13:02 | OPERATIVE REPORT E ---
Operative Report NAME: IVAN ANGELES : 1945 AGE: 73Y DATE OF SURGERY: 10/10/2018 ROOM: PREOPERATIVE DIAGNOSIS: Poor veins for IV access in patient needing orthopaedic procedure done today. POSTOPERATIVE DIAGNOSIS: Poor veins for IV access in patient needing orthopaedic procedure done today. PROCEDURE: Insertion of a left internal jugular vein triple-lumen catheter under ultrasound guidance. SURGEON: ZAKIYA FINK M.D. ANESTHESIA: Local. INDICATIONS: This is a 73-year-old female who needs orthopaedic surgery on her knee today. I was asked by Anesthesia to put a central line in since they are not able to put in a peripheral line. DESCRIPTION OF PROCEDURE: After placement of patient in a slight Trendelenburg position, the left neck was then prepped and draped in the usual sterile fashion. With the use of the ultrasound the left internal jugular vein was then identified. Local anesthesia was then infiltrated on the skin and left internal jugular vein subsequently punctured with the help of the ultrasound. A guidewire was then passed through the needle towards the superior vena cava. The needle was removed and puncture site dilated. A triple-lumen catheter was then inserted through the guidewire to a distance of about 19 cm. All 3 ports aspirated blood easily and instilled saline easily. Catheter was then anchored to the skin with 3-0 silk and a Biopatch placed at the insertion site and a transparent sterile dressing placed over the Biopatch and catheter. The patient tolerated the procedure well. A chest x-ray will be obtained for placement. DICTATING PHYSICIAN: ZAKIYA FINK M.D. [id number] Y#: [id number] ID: [id number] JOB#: [id number] ACCT: [id number] cc:ZKAIYA FINK M.D. >
[2018-10-10] MEDS ORDERED: MIDAZOLAM 2 MG/2 ML INJ ONE (13:19)
[2018-10-10] MEDS ORDERED: FENTANYL CITRATE INJ/PF 100 MCG/2 ML AMPUL ONE (13:19)
[2018-10-10] MEDS ORDERED: PROPOFOL INJ 200 MG/20 ML VIAL IV ONE (13:19)
[2018-10-10] MEDS ORDERED: HYDROMORPHONE HCL INJ/PF 2 MG/ML AMPULE ONE (13:19)
[2018-10-10] MEDS ORDERED: ACETAMINOPHEN 1,000 MG/100 ML RTUPB IV ONE (13:20)
--- NOTE | 2018-10-10 13:20 | RADIOLOGY REPORT (SQ) ---
EXAM DESCRIPTION: CHEST SINGLE VIEW COMPLETED DATE/TIME: 10/10/2018 1:11 pm REASON FOR STUDY: post central line placement COMPARISON: 09/13/2018. EXAM PARAMETERS: NUMBER OF VIEWS: One view. TECHNIQUE: Single frontal radiographic view of the chest acquired. RADIATION DOSE: NA LIMITATIONS: None. FINDINGS: LUNGS AND PLEURA: No opacities, masses or pneumothorax. No pleural effusion. MEDIASTINUM AND HILAR STRUCTURES: No masses. Contour normal. HEART AND VASCULAR STRUCTURES: Heart normal in size. Normal vasculature. BONES: No acute findings. HARDWARE: Surgical clips at the base of the neck. Central line with the tip at the level of the supe rior vena cava. OTHER: No other significant finding. IMPRESSION: CENTRAL LINE IN APPROPRIATE POSITION WITH NO PNEUMOTHORAX. NO ACUTE RADIOGRAPHIC FINDIN G IN THE CHEST. TECHNICAL DOCUMENTATION: JOB ID: [id number] [email or web address]- All Rights Reserved Reading location - IP/workstation name: [facility]-[email or web address]
[2018-10-10] MEDS ORDERED: BUPIVACAINE HCL 0.5 % INJ/PF 30 ML SDV ONE (13:23)
[2018-10-10] MEDS ORDERED: DEXAMETHASONE SOD PHOSPHATE INJ 4 MG/1 ML VIAL ONE (15:17)
[2018-10-10] MEDS ORDERED: ONDANSETRON HCL INJ/PF 4 MG/2 ML SDV ONE (15:17)
[2018-10-10] MEDS ORDERED: EPINEPHRINE INJ/PF 1 MG/1 ML AMPULE ONE (16:08)
[2018-10-10] MEDS ORDERED: FENTANYL CITRATE INJ/PF 100 MCG/2 ML AMPUL IV PRN ×3 (16:12)
[2018-10-10] MEDS ORDERED: MEPERIDINE HCL/PF INJ 25 MG/1 ML DISP.SYRIN IV PRN (16:12)
[2018-10-10] MEDS ORDERED: DIPHENHYDRAMINE HCL 50 MG/ML VIAL IV PRN (16:12)
[2018-10-10] MEDS ORDERED: PROMETHAZINE HCL INJ 25 MG/1 ML VIAL IV PRN (16:12)
[2018-10-10] MEDS ORDERED: ALBUTEROL SULFATE 0.083% NEB 2.5 MG/3 ML AMPUL NEB ONE (16:44)
--- NOTE | 2018-10-10 16:51 | Operative Report ---
Operative Report DATE OF SURGERY: 10/10/18 PREOPERATIVE DIAGNOSIS: Left knee medial meniscus tear and mild knee arthritis POSTOPERATIVE DIAGNOSIS: Same OPERATION: Left knee arthroscopic partial medial and lateral meniscectomy with chondroplasty of all 3 compartments. SURGEON: JUANY DANIEL ANESTHESIA: GA TISSUE REMOVED OR ALTERED: Shavings COMPLICATIONS: None INTRAOPERATIVE FINDINGS: As above PROCEDURE: After receiving preoperative antibiotics in the holding area patient was brought to the operating room and was induced and intubated in supine position. Thigh tourniquet was applied to left lower extremity and the left lower extremity was prepped and draped in a normal sterile surgical fashion. Timeout was done identifying the left knee as the correct site. Cord percent Marcaine was injected in the anticipated portal sites and Esmarch was used to examining the extremity and tourniquet was inflated at 300 mmHg. With the knee flexed at 90 a 11 blade was used to establish the anterolateral portal and the scope was introduced and the capsule was distended with sterile saline solution. I used a spinal needle to anticipate placement of my anterior medial portal. Once I was satisfied I used an 11 blade and establish that portal. Probe was introduced and a diagnostic scope was done. Diagnostic arthroscopy showed that the patient had intact cartilage behind the patella but there was grade 3 changes of the Trochlear groove. Patient also has some synovitis. Derm attention to the medial compartment and and showed the tear of the midbody posterior horn as well as grade 2 changes of the medial femoral condyle and tibial plateau. With a meniscal biter and 4.0 mm shaver was able to resect the posterior horn and part of the mid body of the medial meniscus. Pictures were taken showing the resection meniscus that was left behind. Turned to the notch where the ACL PCL is intact. At this point the leg was placed in a figure-of- four position and showed that the patient had degenerative tearing of the lateral meniscus requiring mild resection with a shaver. I also proceeded to do a chondroplasty of the medial femoral condyle and the lateral femoral condyle. The knee was placed in full extension and the patellofemoral compartment there was also done a abrasion chondroplasty of the femoral trochlear groove. There is no loose bodies and at this point fluid was removed from the knee and the 2 portal sites were closed with 3-0 nylon. Xeroform 4 x 4 dressing and ABD pads were applied followed by soft roll and Fredrick bandage. Tourniquet was let down at 22 minutes. Patient was extubated and sent to PACU in stable condition.
[2018-10-10] MEDS ORDERED: OXYCODONE-ACETAMINOPHEN 5-325 MG TABLET PO PRN ×2 (16:55)
--- NOTE | 2018-10-10 16:55 | Discharge Summary ---
Discharge Summary (SDC) - Discharge Final Diagnosis: Status post left knee arthroscopic partial medial lateral meniscectomy Date of Surgery: 10/10/18 Discharge Date: 10/10/18 Condition: Good Treatment or Instructions: Patient instructed to follow up in 10-14 days. Patient instructed to keep dressing dry clean and intact for 4 days and then allowed to remove. At that point patient can shower and apply Band-Aids as needed. Patient can weight-bear as tolerated and do range of motion exercises as tolerated. Crutches for support and safety. Can wean crutches once stable on his feet. Patient instructed to call the office if patient develops fevers chills redness and drainage from the surgical sites. Prescriptions: Oxycodone HCl/Acetaminophen [Percocet 5-325 mg Tablet] 1 - 2 tab PO ASDIR PRN # 40 tablet PRN Reason: Referrals: SNEHAL BARRIOS MD [Primary Care Provider] - Discharge Diet: As Tolerated Respiratory Treatments at Home: Deep Breathing/Coughing Discharge Activity: No Driving - While taking narcotics, No Lifting/Push/Pulling , Slowly Increase Activity, Walk Frequently Home Care Assistance: None Needed Report the Following to Your Physician Immediately: Shortness of Breath, Vomiting, Increase in Pain, Fever over 101 Degrees, Unusual Bleeding, Redness, Swelling, Warmth, Increased Soreness, Drainage-Yellow, Drainage-Burgess, Drainage- Green, Drainage-Foul Smelling
[2018-10-10] MEDS ORDERED: OXYCODONE-ACETAMINOPHEN 5-325 MG TABLET ONE (17:54)
[2018-10-10 19:11] VITALS: BP 132/81
== END 2018-10-10 18:55 | disposition home or self-care (01) ==
LOC: OROUT 09:25
PROVIDERS: ATTEND Orthopaedic Surgery
PROC: 0SBD4ZZ Excision of Left Knee Joint, Percutaneous Endoscopic Approach (ICD-10-PCS; 2018-10-10)
PROC: 0SBD4ZZ Excision of Left Knee Joint, Percutaneous Endoscopic Approach (ICD-10-PCS; principal; 2018-10-10 12:45)
DX: S83.231A Complex tear of medial meniscus, current injury, right knee, initial encounter (principal); E11.9 Type 2 diabetes mellitus without complications; M17.12 Unilateral primary osteoarthritis, left knee; X58.XXXA Exposure to other specified factors, initial encounter
CPT/HCPCS: 36415 ×2; 82962; 82947; 84132; 81001; 83036; 71045; 29880; C1751; J2250; J3490; J1100; J0171; J3010; A9270 ×2; J0330; J2405; J7060; J2704; J3370; J0131; 1400; J1170

== ENCOUNTER → 2018-11-01 | Outpatient (CLI) | payer MEDICARE, OTHER ==
[2018-11-01 12:49] LABS: ANION GAP 10 (5-19); BLOOD UREA NITROGEN 16 mg/dL (7-20); CARBON DIOXIDE 26 mmol/L (22-30); CHLORIDE 108 mmol/L (98-107); GLUCOSE 165 mg/dL (75-110); POTASSIUM 3.5 mmol/L (3.6-5.0); SODIUM 144.3 mmol/L (137-145)
== END ==
LOC: OD 11:09
PROVIDERS: ATTEND Family Medicine
DX: E87.6 Hypokalemia (principal)
CPT/HCPCS: 36415; 80048

== ENCOUNTER 2019-04-15 06:30 | Day surgery (SDC) | payer MEDICARE, OTHER ==
[2019-04-10 09:32] LABS: HEMATOCRIT 39.4 % (36.0-47.0); HEMOGLOBIN 13.1 g/dL (12.0-15.5); MEAN CORPUSCULAR HEMOGLOBIN 29.8 pg (27.0-33.4); MEAN CORPUSCULAR HGB CONC 33.2 g/dL (32.0-36.0); MEAN CORPUSCULAR VOLUME 90 fl (80-97); PLATELET COUNT 274 10^3/uL (150-450); RED CELL DISTRIBUTION WIDTH 15.1 % (11.5-14.0); WHITE BLOOD COUNT 5.4 10^3/uL (4.0-10.5)
[2019-04-10 09:57] LABS: ANION GAP 10 (5-19); BLOOD UREA NITROGEN 10 mg/dL (7-20); CALCIUM 10.1 mg/dL (8.4-10.2); CARBON DIOXIDE 31 mmol/L (22-30); CHLORIDE 102 mmol/L (98-107); GLUCOSE 128 mg/dL (75-110); POTASSIUM 4.1 mmol/L (3.6-5.0)
[2019-04-15] MEDS ORDERED: PROPOFOL INJ 200 MG/20 ML VIAL IV ONE (06:42)
--- NOTE | 2019-04-15 09:35 | Discharge Summary ---
Discharge Summary (SDC) - Discharge Final Diagnosis: Colon polyp, pandiverticulosis Date of Surgery: 04/15/19 Discharge Date: 04/15/19 Condition: Stable Treatment or Instructions: Discharge home. Diet as tolerated. Activity: Nonstrenuous. Follow-up with me in 2 weeks. Referrals: SNEHAL BARRIOS MD [Primary Care Provider] - Discharge Diet: As Tolerated Respiratory Treatments at Home: Deep Breathing/Coughing, Incentive Spirometer Discharge Activity: Balance Activity w/Rest Home Care Assistance: None Needed Report the Following to Your Physician Immediately: Shortness of Breath, Nausea, Vomiting, Increase in Pain, Fever over 101 Degrees, Unusual Bleeding
--- NOTE | 2019-04-15 09:39 | Operative Report ---
Nonrecallable Operative Report DATE OF SURGERY: 04/15/19 PREOPERATIVE DIAGNOSIS: History of colon polyps POSTOPERATIVE DIAGNOSIS: 1. Cecal polyp. 2. Pandiverticulosis. OPERATION: Colonoscopy with hot biopsy of cecal polyp. SURGEON: SHERLY NGUYEN ANESTHESIA: LMAC TISSUE REMOVED OR ALTERED: Cecal polyp COMPLICATIONS: None apparent ESTIMATED BLOOD LOSS: Minimal PROCEDURE: Procedure in detail: After informed consent was obtained, the patient was brought to the operating room and laid in the left lateral decubitus position. The endoscope was inserted into the rectum. It was passed up the rectum, sigmoid colon, descending colon, across the transverse colon, down the ascending colon, and into the cecum. The ileocecal valve and appendiceal orifice were identified. The scope was then withdrawn, circumferentially noting the mucosa. The prep was good. In the cecum, a small diminutive polyp was identified. It was removed in its entirety via hot biopsy forcep. The scope was then withdrawn past the ascending colon, transverse colon, down the descending colon, sigmoid colon, and into the rectum. Throughout the colon there were large diverticula throughout. There was no sign of active diverticulitis. In the rectum, a retroflexion maneuver was performed noting nonbleeding internal hemorrhoids. The scope was straightened, air was suctioned from the rectum, the scope was removed, and the procedure was concluded. All sponge, instrument, and needle counts were correct. Condition: Stable.
[2019-04-15 12:36] VITALS: BP 123/80
== END 2019-04-15 10:20 | disposition home or self-care (01) ==
LOC: OROUT 06:30
PROVIDERS: ATTEND Surgery
DX: Z12.11 Encounter for screening for malignant neoplasm of colon (principal); D12.0 Benign neoplasm of cecum; K57.30 Diverticulosis of large intestine without perforation or abscess without bleeding; Z86.010 Personal history of colon polyps; K62.5 Hemorrhage of anus and rectum; I10 Essential (primary) hypertension; E11.9 Type 2 diabetes mellitus without complications; M79.2 Neuralgia and neuritis, unspecified; E03.9 Hypothyroidism, unspecified; M32.9 Systemic lupus erythematosus, unspecified; J45.909 Unspecified asthma, uncomplicated; Z85.850 Personal history of malignant neoplasm of thyroid; Z79.84 Long term (current) use of oral hypoglycemic drugs; Z79.899 Other long term (current) drug therapy; Z79.82 Long term (current) use of aspirin; Z79.51 Long term (current) use of inhaled steroids
CPT/HCPCS: 45384; 36415; 82962; 85027; 80048; 88305 ×2; 00811; J2704; 811

== ENCOUNTER → 2019-07-30 | Outpatient (CLI) | payer MEDICARE, OTHER ==
[2019-07-30 12:15] LABS: ABSOLUTE EOSINOPHILS # (AUTO) 0.3 10^3/uL (0.0-0.6); ABSOLUTE LYMPHOCYTES (AUTO) 2.4 10^3/uL (0.5-4.7); ABSOLUTE MONOCYTES (AUTO) 0.4 10^3/uL (0.1-1.4); ABSOLUTE NEUT (AUTO) 2.9 10^3/uL (1.7-8.2); BASOPHILS % (AUTO) 0.8 % (0-2); EOSINOPHILS % (AUTO) 4.6 % (0-6); HEMATOCRIT 35.7 % (36.0-47.0); LYMPHOCYTES % (AUTO) 39.4 % (13-45); MEAN CORPUSCULAR HEMOGLOBIN 30.9 pg (27.0-33.4); MEAN CORPUSCULAR HGB CONC 33.6 g/dL (32.0-36.0); MEAN CORPUSCULAR VOLUME 92 fl (80-97); MONOCYTES % (AUTO) 6.7 % (3-13); RED BLOOD COUNT 3.88 10^6/uL (3.72-5.28); RED CELL DISTRIBUTION WIDTH 16.5 % (11.5-14.0); SEGMENTED NEUTROPHILS % (AUTO) 48.5 % (42-78); TOTAL CELLS COUNTED % (AUTO) 100 %
[2019-07-30 12:27] LABS: PLATELET COUNT 167 10^3/uL (150-450)
[2019-07-30 12:38] LABS: ALBUMIN 4.4 g/dL (3.5-5.0); ALKALINE PHOSPHATASE 114 U/L (38-126); ANION GAP 10 (5-19); ASPARTATE AMINO TRANSFERASE 27 U/L (14-36); BILIRUBIN,DIRECT 0.3 mg/dL (0.0-0.4); BILIRUBIN,TOTAL 0.6 mg/dL (0.2-1.3); BLOOD UREA NITROGEN 15 mg/dL (7-20); CALCIUM 9.8 mg/dL (8.4-10.2); CARBON DIOXIDE 27 mmol/L (22-30); CHLORIDE 105 mmol/L (98-107); GLUCOSE 82 mg/dL (75-110); POTASSIUM 4.7 mmol/L (3.6-5.0); TOTAL PROTEIN 7.5 g/dL (6.3-8.2); TRIGLYCERIDES 144 mg/dL (<150)
[2019-07-30 12:49] LABS: DIRECT LDL 78 mg/dL (<100)
[2019-07-30 12:54] LABS: FREE T4 (FREE THYROXINE) 1.19 ng/dL (0.78-2.19)
[2019-07-30 13:08] LABS: THYROID STIMULATING HORMONE 1.87 uIU/mL (0.47-4.68)
== END ==
LOC: OD 11:02
PROVIDERS: ATTEND Family Medicine
DX: I10 Essential (primary) hypertension (principal); E03.9 Hypothyroidism, unspecified; E11.9 Type 2 diabetes mellitus without complications; E78.5 Hyperlipidemia, unspecified
CPT/HCPCS: 36415; 80053; 80061; 83036; 84439; 84443; 85025

== ENCOUNTER → 2019-08-13 | Outpatient (CLI) | payer MEDICARE, OTHER ==
--- NOTE | 2019-08-13 11:40 | WOMENS IMAGING REPORT ---
EXAM DESCRIPTION: 3D SCREENING MAMMO BILAT COMPLETED DATE/TIME: 08/13/2019 9:53 am REASON FOR STUDY: Z12.31 ENCOUNTER FOR SCREENING MAMMOGRAM FOR MALIGNANT NEOPLASM OF BREAST Z12.31 ENCNTR SCREEN MAMMOGRAM FOR MALIGNANT NEOPLASM OF ANGELA COMPARISON: Prior mammograms going back to 2012. EXAM PARAMETERS: Standard craniocaudal and mediolateral oblique views of each breast recorded using digital acquisition and breast tomosynthesis. Read with the assistance of CAD. .[facility] - [employer] Precision Lens Generator Version 9.2 LIMITATIONS: None. FINDINGS: RIGHT BREAST MASSES: No suspicious masses. CALCIFICATIONS: No new or suspicious calcifications. ARCHITECTURAL DISTORTION: None. DEVELOPING DENSITY: None. ASYMMETRY: None noted. OTHER: No other significant findings. LEFT BREAST MASSES: No suspicious masses. CALCIFICATIONS: No new or suspicious calcifications. ARCHITECTURAL DISTORTION: Distortion subareolar just above the level of the nipple. This looks more conspicuous compared to priors. Possible associated mass. The patient has a history of prior left b reast biopsy, unclear this is all postoperative change. DEVELOPING DENSITY: None. ASYMMETRY: None noted. OTHER: No other significant findings. IMPRESSION: 1. Distortion and potential mass anterior left breast subareolar. Recommend further evaluation with diagnostic mammography and ultrasound. Correlation with site of prior biopsy is recommended, conside r placing scar marker at the time of diagnostic imaging follow-up. 0 Incomplete: Needs Additional Imaging Evaluation and/or prior Mammograms for Comparison. BREAST DENSITY: c. The breasts are heterogeneously dense, which may obscure small masses. BIRAD: ASSESSMENT: 0 Incomplete: Needs Additional Imaging Evaluation and/or prior Mammograms for C omparison. RECOMMENDATION: RECOMMENDED FOLLOW-UP: As above. The patient will be contacted for additional imaging. COMMENT: The patient has been notified of the results by letter per SA requirements. Additional no tification policies are in place for contacting patient with suspicious or incomplete findings. Quality ID #225: The [employer] recommends an annual screening mammogram for women aged 40 years or over. This facility utilizes a reminder system to ensure that all patients receive reminder letters, and/or direct phone calls for appointments. This includes reminders for routine scr eening mammograms, diagnostic mammograms, or other Breast Imaging Interventions when appropriate. Th is patient will be placed in the appropriate reminder system. TECHNICAL DOCUMENTATION: FINDING NUMBER: (1) ASSESSMENT: (1) JOB ID: [id number] [employer]- All Rights Reserved Reading location - IP/workstation name: [email or web address]
== END ==
LOC: WI 09:45
PROVIDERS: ATTEND Family Medicine
DX: Z12.31 Encounter for screening mammogram for malignant neoplasm of breast (principal); N64.89 Other specified disorders of breast
CPT/HCPCS: 77063; 77067

== ENCOUNTER → 2019-09-10 | Outpatient (CLI) | payer MEDICARE, OTHER ==
--- NOTE | 2019-09-10 12:25 | WOMENS IMAGING REPORT ---
EXAM DESCRIPTION: LEFT DIAGNOSTIC MAMMO W/CAD; U/S BREAST UNILAT LIMITED COMPLETED DATE/TIME: 09/10/2019 10:05 am; 09/10/2019 10:52 am REASON FOR STUDY: R92.2 INCONCLUSIVE MAMMOGRAM; LT BREAST DISTORTION R92.2 INCONCLUSIVE MAMMOGRAM COMPARISON: 08/13/2019. 2017, 2015 and 2014. EXAM PARAMETERS: Compression CC and MLO. Non compressed true lateral. Targeted breast ultrasound. Scar marker placed. LIMITATIONS: None. FINDINGS: BREAST LATERALITY: Left MASSES: No suspicious masses. CALCIFICATIONS: No new or suspicious calcifications. ARCHITECTURAL DISTORTION: Distortion in the left breast appears to correlate with previous benign bio psy scar. Relatively stable mammographic appearance overall. DEVELOPING DENSITY: None. ASYMMETRY: None noted. OTHER: No other significant findings. Ultrasound: No solid mass or significant architectural distortion appreciated on scanning of the ret roareolar tissues. Scattered tiny cysts along with areas of irregular duct dilatation. No intraduct al masses appreciated. IMPRESSION: 1. Mammograms are felt to be stable, changes related to previous benign biopsy in the anterior left b reast. 2. Cysts and ectatic ducts without solid mass noted on ultrasound. No worrisome features. BREAST DENSITY: c. The breasts are heterogeneously dense, which may obscure small masses. BIRAD: ASSESSMENT: 2 Benign findings. RECOMMENDATION: RECOMMENDED FOLLOW UP: Continued yearly mammography. SPECIFIC INTERVENTION/IMAGING/CONSULTATION RECOMMENDED:No additional intervention/ imaging/consultati on needed at this time. COMMUNICATION:The negative/benign results were communicated to the patient. COMMENT: The patient has been notified of the results by letter per MQSA requirements. Additional no tification policies are in place for contacting patient with suspicious or incomplete findings. Quality ID #225: The [employer] recommends an annual screening mammogram for women aged 40 years or over. This facility utilizes a reminder system to ensure that all patients receive reminder letters, and/or direct phone calls for appointments. This includes reminders for routine scr eening mammograms, diagnostic mammograms, or other Breast Imaging Interventions when appropriate. Th is patient will be placed in the appropriate reminder system. TECHNICAL DOCUMENTATION: FINDING NUMBER: (1) ASSESSMENT: (1) JOB ID: [id number] [employer]- All Rights Reserved Reading location - IP/workstation name: [email or web address]
== END ==
LOC: WI 09:45
PROVIDERS: ATTEND Family Medicine
DX: N60.02 Solitary cyst of left breast (principal)
CPT/HCPCS: 76642; 77065

== ENCOUNTER → 2019-09-10 | Outpatient (CLI) | payer MEDICARE, OTHER ==
[2019-09-10 13:23] LABS: FREE T3 3.12 pg/mL (2.77-5.27); FREE T4 (FREE THYROXINE) 1.15 ng/dL (0.78-2.19)
[2019-09-10 13:36] LABS: THYROID STIMULATING HORMONE 2.04 uIU/mL (0.47-4.68)
== END ==
LOC: OD 11:28
PROVIDERS: ATTEND Internal Medicine Endocrinology, Diabetes & Metabolism
DX: E89.0 Postprocedural hypothyroidism (principal)
CPT/HCPCS: 36415; 84439; 84443; 84481

== ENCOUNTER → 2019-09-19 | Outpatient (CLI) | payer MEDICARE, OTHER ==
--- NOTE | 2019-09-19 12:26 | RADIOLOGY REPORT (SQ) ---
EXAM DESCRIPTION: CHEST PA/LATERAL COMPLETED DATE/TIME: 09/19/2019 12:13 pm REASON FOR STUDY: UNSPECIFIED ASTHMA, UNCOMPLICATED COMPARISON: 10/10/2018 EXAM PARAMETERS: NUMBER OF VIEWS: two views TECHNIQUE: Digital Frontal and Lateral radiographic views of the chest acquired. RADIATION DOSE: NA LIMITATIONS: none FINDINGS: LUNGS AND PLEURA: No opacities, masses or pneumothorax. No pleural effusion. MEDIASTINUM AND HILAR STRUCTURES: No masses or contour abnormalities. HEART AND VASCULAR STRUCTURES: Heart normal size. No evidence for failure. BONES: No acute findings. HARDWARE: None in the chest. OTHER: No other significant finding. IMPRESSION: NO SIGNIFICANT RADIOGRAPHIC FINDING IN THE CHEST. TECHNICAL DOCUMENTATION: JOB ID: [id number] [employer]- All Rights Reserved Reading location - IP/workstation name: [email or web address]
--- NOTE | 2019-09-20 22:07 | EKG REPORT ---
SEVERITY:- NORMAL ECG - SINUS RHYTHM : Confirmed by: Nesha Romero 20-Sep-2019 22:05:46
== END ==
LOC: OD 11:48
PROVIDERS: ATTEND Physician Assistant
DX: Z13.6 Encounter for screening for cardiovascular disorders (principal); J45.909 Unspecified asthma, uncomplicated
CPT/HCPCS: 71046; 93005; 93010

== ENCOUNTER → 2019-09-26 | Outpatient (CLI) | payer MEDICARE, OTHER ==
[2019-09-26 12:41] LABS: ANION GAP 11 (5-19); BLOOD UREA NITROGEN 11 mg/dL (7-20); CALCIUM 9.7 mg/dL (8.4-10.2); CARBON DIOXIDE 28 mmol/L (22-30); CHLORIDE 106 mmol/L (98-107); GLUCOSE 100 mg/dL (75-110)
== END ==
LOC: OD 09:47
PROVIDERS: ATTEND Family Medicine
DX: E87.6 Hypokalemia (principal)
CPT/HCPCS: 36415; 80048

== ENCOUNTER 2020-06-24 12:18 | Day surgery (SDC) | payer MEDICARE, OTHER ==
--- NOTE | 2020-06-10 17:59 | EKG REPORT ---
SEVERITY:- NORMAL ECG - SINUS RHYTHM : Confirmed by: Kathryn Childers MD 10-Jun-2020 17:58:41
[2020-06-24 13:23] LABS: HEMOGLOBIN 12.4 g/dL (12.0-15.5); MEAN CORPUSCULAR HEMOGLOBIN 30.8 pg (27.0-33.4); MEAN CORPUSCULAR HGB CONC 33.4 g/dL (32.0-36.0); MEAN CORPUSCULAR VOLUME 92 fl (80-97); PLATELET COUNT 252 10^3/uL (150-450); RED BLOOD COUNT 4.01 10^6/uL (3.72-5.28); RED CELL DISTRIBUTION WIDTH 15.8 % (11.5-14.0); WHITE BLOOD COUNT 6.3 10^3/uL (4.0-10.5)
[2020-06-24 13:45] LABS: ANION GAP 8 (5-19); BLOOD UREA NITROGEN 13 mg/dL (7-20); CALCIUM 9.6 mg/dL (8.4-10.2); CARBON DIOXIDE 27 mmol/L (22-30); CHLORIDE 105 mmol/L (98-107); GLUCOSE 96 mg/dL (75-110); POTASSIUM 4.1 mmol/L (3.6-5.0)
[2020-06-24] MEDS ORDERED: DIPHENHYDRAMINE HCL 50 MG/ML VIAL IV PRN (14:27)
[2020-06-24] MEDS ORDERED: PROMETHAZINE HCL INJ 25 MG/1 ML VIAL IV PRN (14:27)
[2020-06-24] MEDS ORDERED: FENTANYL CITRATE INJ/PF 100 MCG/2 ML AMPUL IV PRN ×3 (14:27)
--- NOTE | 2020-06-24 14:35 | Discharge Summary ---
Discharge Summary (SDC) - Discharge Final Diagnosis: bleeding internal hemorrhoids Date of Surgery: 06/24/20 Discharge Date: 06/24/20 Condition: Stable Treatment or Instructions: Discharge home. Diet as tolerated. Activity: Nonstrenuous. Follow-up with [facility] in 3 weeks. Warm bathtub soaks for anus/rectum 3 times daily and after bowel movements. Fiber supplement twice daily. Stool softener twice daily. Referrals: SNEHAL BARRIOS MD [Primary Care Provider] - Discharge Diet: As Tolerated Respiratory Treatments at Home: Deep Breathing/Coughing, Incentive Spirometer Discharge Activity: Balance Activity w/Rest Home Care Assistance: None Needed Report the Following to Your Physician Immediately: Shortness of Breath, Nausea, Vomiting, Increase in Pain, Fever over 101 Degrees, Warmth, Increased Soreness
--- NOTE | 2020-06-24 14:37 | Operative Report ---
Nonrecallable Operative Report DATE OF SURGERY: 06/24/20 PREOPERATIVE DIAGNOSIS: Bleeding internal hemorrhoids POSTOPERATIVE DIAGNOSIS: Same as above OPERATION: Rubber band ligation of bleeding internal hemorrhoids x5 SURGEON: SHERLY NGUYEN ANESTHESIA: LMAC TISSUE REMOVED OR ALTERED: None COMPLICATIONS: None apparent ESTIMATED BLOOD LOSS: Minimal PROCEDURE: Drains/implants: None. Procedure detail: After informed consent was obtained, the patient was brought to the operating room and laid in the left lateral decubitus position. A Hill- Anderson retractor was inserted into the anus. Enlarged hemorrhoids were found in the right anterior, right posterior, and left lateral columns. The largest was in the right posterior position. 2 rubber bands were placed in the right posterior position, two rubber bands were placed in the left lateral position, and 1 rubber band was placed in the right anterior position. Once all the hemorrhoidal tissue was encircled with rubber bands, the Hill-Anderson retractor was removed, and the procedure was concluded. All sponge, instrument, and needle counts were correct x2. Condition: Stable.
[2020-06-24] MEDS: FENTANYL CITRATE INJ/PF 100 MCG/2 ML AMPUL ONE ×2 (14:45→14:50)
[2020-06-24] MEDS ORDERED: LIDOCAINE 2% JELLY 30 ML TUBE ONE (16:33)
[2020-06-24 17:25] VITALS: BP 120/73
== END 2020-06-24 16:25 | disposition home or self-care (01) ==
LOC: OROUT 12:18
PROVIDERS: ATTEND Surgery
DX: K64.8 Other hemorrhoids (principal); I10 Essential (primary) hypertension; E11.9 Type 2 diabetes mellitus without complications; M79.2 Neuralgia and neuritis, unspecified; Z85.850 Personal history of malignant neoplasm of thyroid; E78.00 Pure hypercholesterolemia, unspecified; M32.9 Systemic lupus erythematosus, unspecified; Z86.010 Personal history of colon polyps; Z96.652 Presence of left artificial knee joint; Z79.84 Long term (current) use of oral hypoglycemic drugs; Z79.899 Other long term (current) drug therapy; Z88.5 Allergy status to narcotic agent; E89.0 Postprocedural hypothyroidism; J44.9 Chronic obstructive pulmonary disease, unspecified; G47.33 Obstructive sleep apnea (adult) (pediatric); Z03.818 Encounter for observation for suspected exposure to other biological agents ruled out
CPT/HCPCS: 93005; 36415; 85027; 80048; 93010; 00902; 46221; U0003; J2250; J3010; J2405; J2704; C9803; 87635; 902

== ENCOUNTER → 2020-09-07 | Outpatient (CLI) | payer MEDICARE, OTHER ==
[2020-09-07 10:05] LABS: ABSOLUTE LYMPHOCYTES (AUTO) 1.7 10^3/uL (0.5-4.7); ABSOLUTE MONOCYTES (AUTO) 0.5 10^3/uL (0.1-1.4); ABSOLUTE NEUT (AUTO) 3.6 10^3/uL (1.7-8.2); BASOPHILS % (AUTO) 0.7 % (0-2); EOSINOPHILS % (AUTO) 0.8 % (0-6); HEMATOCRIT 40.1 % (36.0-47.0); HEMOGLOBIN 13.6 g/dL (12.0-15.5); MEAN CORPUSCULAR HEMOGLOBIN 30.9 pg (27.0-33.4); MEAN CORPUSCULAR VOLUME 91 fl (80-97); PLATELET COUNT 303 10^3/uL (150-450); RED BLOOD COUNT 4.41 10^6/uL (3.72-5.28); SEGMENTED NEUTROPHILS % (AUTO) 60.5 % (42-78); TOTAL CELLS COUNTED % (AUTO) 100 %
[2020-09-07 10:27] LABS: ALBUMIN 4.7 g/dL (3.5-5.0); ALKALINE PHOSPHATASE 123 U/L (38-126); ANION GAP 15 (5-19); ASPARTATE AMINO TRANSFERASE 27 U/L (14-36); BILIRUBIN,DIRECT 0.2 mg/dL (0.0-0.4); BILIRUBIN,TOTAL 0.8 mg/dL (0.2-1.3); BLOOD UREA NITROGEN 15 mg/dL (7-20); CARBON DIOXIDE 26 mmol/L (22-30); CHLORIDE 101 mmol/L (98-107); GLUCOSE 114 mg/dL (75-110); POTASSIUM 4.2 mmol/L (3.6-5.0); TOTAL PROTEIN 7.9 g/dL (6.3-8.2)
--- NOTE | 2020-09-07 13:55 | RADIOLOGY REPORT (SQ) ---
EXAM DESCRIPTION: ACUTE ABDOMEN SERIES IMAGES COMPLETED DATE/TIME: 09/07/2020 9:57 am REASON FOR STUDY: NAUSEA WITH VOMITING, UNSPECIFIED R11.2 NAUSEA WITH VOMITING, UNSPECIFIED R10.31 RIGHT LOWER QUADRANT PAIN COMPARISON: 10/29/2017 NUMBER OF VIEWS: Three views. TECHNIQUE: Frontal chest, supine abdomen and upright/decubitus abdomen radiographic images acquired. LIMITATIONS: None. FINDINGS: CHEST: Lungs clear of infiltrates. FREE AIR: None. No abnormal gas collections. BOWEL GAS PATTERN: Nonobstructive pattern. No dilated loops or air fluid levels. CALCIFICATIONS: No suspicious calcifications. HARDWARE: Clips in the right upper quadrant consistent with prior cholecystectomy. SOFT TISSUES: No gross mass or suggestion of organomegaly. BONES: Postsurgical changes in the lower lumbar spine. OTHER: No other significant finding. IMPRESSION: NO RADIOGRAPHIC EVIDENCE FOR ACUTE ABDOMINAL DISEASE. TECHNICAL DOCUMENTATION: JOB ID: [id number] 2010 [employer]- All Rights Reserved Reading location - IP/workstation name: [email or web address]
== END ==
LOC: OD 09:00
PROVIDERS: ATTEND Physician Assistant
DX: R11.2 Nausea with vomiting, unspecified (principal); R10.31 Right lower quadrant pain
CPT/HCPCS: 36415; 74022; 80053; 83690; 85025

== ENCOUNTER → 2020-09-13 | Outpatient (CLI) | payer MEDICARE, OTHER ==
--- NOTE | 2020-09-14 08:46 | WOMENS IMAGING REPORT ---
EXAM DESCRIPTION: BILAT SCREENING MAMMO W/CAD IMAGES COMPLETED DATE/TIME: 09/13/2020 8:19 am REASON FOR STUDY: Z12.31 ENCOUNTER FOR SCREENING MAMMOGRAM FOR MALIGNANT NEOPLASM OF OSEOXSC66.31 E NCNTR SCREEN MAMMOGRAM FOR MALIGNANT NEOPLASM OF ANGELA COMPARISON: 09/02/2019, 08/19/2018, and 08/15/2017. EXAM PARAMETERS: Standard craniocaudal and mediolateral oblique views of each breast recorded using digital acquisition. Read with the assistance of CAD. .[facility] - [employer] Agent Version 9.2 LIMITATIONS: None. FINDINGS: RIGHT BREAST MASSES: No suspicious masses. CALCIFICATIONS: No new or suspicious calcifications. ARCHITECTURAL DISTORTION: None. ASYMMETRY: None noted. OTHER: No other significant findings. LEFT BREAST MASSES: Mass in the lateral breast appears more prominent. Located 6 cm from the nipple, visualized on the CC image. CALCIFICATIONS: No new or suspicious calcifications. ARCHITECTURAL DISTORTION: Stable biopsy changes. ASYMMETRY: None noted. OTHER: No other significant findings. IMPRESSION: Mass in the lateral left breast, visualized on the CC image, appears more prominent. St able mammographic appearance of the right breast. 0 Incomplete: Needs Additional Imaging Evaluation and/or prior Mammograms for Comparison. BREAST DENSITY: c. The breasts are heterogeneously dense, which may obscure small masses. BIRAD: ASSESSMENT: 0 Incomplete: Needs Additional Imaging Evaluation and/or prior Mammograms for C omparison. RECOMMENDATION: RECOMMENDED FOLLOW-UP: Recommend additional evaluation with compression views of the left breast and ultrasound of the left breast. Recommend routine screening mammography of the right breast. The patient will be contacted for additional imaging. COMMENT: The patient has been notified of the results by letter per SA requirements. Additional no tification policies are in place for contacting patient with suspicious or incomplete findings. Quality ID #225: The [employer] recommends an annual screening mammogram for women aged 40 years or over. This facility utilizes a reminder system to ensure that all patients receive reminder letters, and/or direct phone calls for appointments. This includes reminders for routine scr eening mammograms, diagnostic mammograms, or other Breast Imaging Interventions when appropriate. Th is patient will be placed in the appropriate reminder system. TECHNICAL DOCUMENTATION: FINDING NUMBER: (1) ASSESSMENT: (1) JOB ID: [id number] 2010 [employer]- All Rights Reserved Reading location - IP/workstation name: [email or web address]
== END ==
LOC: WI 08:03
PROVIDERS: ATTEND Physician Assistant
DX: Z12.31 Encounter for screening mammogram for malignant neoplasm of breast (principal); N63.20 Unspecified lump in the left breast, unspecified quadrant
CPT/HCPCS: 77067

== ENCOUNTER → 2020-09-22 | Outpatient (CLI) | payer MEDICARE, OTHER ==
--- NOTE | 2020-09-22 10:16 | WOMENS IMAGING REPORT ---
EXAM DESCRIPTION: LEFT DIAGNOSTIC MAMMO W/CAD; U/S BREAST UNILAT LIMITED IMAGES COMPLETED DATE/TIME: 09/22/2020 9:41 am; 09/22/2020 9:59 am REASON FOR STUDY: LT BREAST MASS N63.20; LT BREAST N63.20 N63.20 UNSPECIFIED LUMP IN THE LEFT BREAS T, UNSPECIFIED QUAD COMPARISON: 09/13/2020 and 08/13/2019. EXAM PARAMETERS: True lateral and spot compression lateral and CC images acquired. LIMITATIONS: None. FINDINGS: BREAST LATERALITY: left MASSES: Circumscribed mass in the lateral breast as well as prominent retroareolar ducts. CALCIFICATIONS: No new or suspicious calcifications. ARCHITECTURAL DISTORTION: None. ASYMMETRY: None noted. OTHER: No other significant findings. BREAST ULTRASOUND: TECHNIQUE: Static and dynamic grayscale images acquired of the left breast in the specific areas of c linical/mammographic concern, 3 o'clock areolar location. Selected color Doppler images recorded. ELASTOGRAPHY PERFORMED: No. LIMITATIONS: None. FINDINGS: MASS: 8 mm anechoic cyst. Smooth margins. No internal echoes. Prominent subareolar ducts with no f illing defects. No solid mass identified. Normal glandular tissue. ELASTOGRAPHY CHARACTERISTICS:Not applicable. OTHER: No other significant finding. IMPRESSION: Small cyst and prominent ducts. No worrisome findings. BREAST DENSITY: b. There are scattered areas of fibroglandular density. BIRAD: ASSESSMENT: 2 Benign findings. RECOMMENDATION: RECOMMENDED FOLLOW UP: Birads 1 or 2: The patient should resume routine screening . SPECIFIC INTERVENTION/IMAGING/CONSULTATION RECOMMENDED:No additional intervention/ imaging/consultati on needed at this time. COMMUNICATION:The imaging findings were not discussed with the patient. Her referring provider has be en notified of the findings. COMMENT: The patient has been notified of the results by letter per MQSA requirements. Additional no tification policies are in place for contacting patient with suspicious or incomplete findings. Quality ID #225: The [employer] recommends an annual screening mammogram for women aged 40 years or over. This facility utilizes a reminder system to ensure that all patients receive reminder letters, and/or direct phone calls for appointments. This includes reminders for routine scr eening mammograms, diagnostic mammograms, or other Breast Imaging Interventions when appropriate. Th is patient will be placed in the appropriate reminder system. TECHNICAL DOCUMENTATION: FINDING NUMBER: (1) ASSESSMENT: (1) JOB ID: [id number] 2010 [employer]- All Rights Reserved Reading location - IP/workstation name: [email or web address]
--- OUTSIDE RECORDS SUMMARY | 2020-09-23 18:23 | XMS REPORT ---
:1945 Author Organization Pending sale to [facility] Address [facility] [place] [address] [place] [address] Care Team Providers Name Role Phone Ana Paula Reynoso Primary Care Physician Unavailable Anh GOOD Attending Clinician Unavailable Alexus CAVANAUGH Attending Clinician Unavailable Seth Attending Clinician Unavailable Alexus CAVANAUGH Admitting Clinician Unavailable Allergies, Adverse Reactions, Alerts Allergy Allergy Status Severity Reaction(s) Onset Inactive Treating C omments Name Type Date Date Clinician Percocet Allergy to Active substance Medications Ordered Filled Start Stop Current Ordering Indication Dosage Frequency Signature Comments Components Medication Medication Date Date Medication? Clinician (SIG) Name Name Methotrexat 2019-0 Donna Harley Methotrexa e 2.5 MG 8-04 Anh macedo 2.5 MG Oral Tablet 11:52: D.O. Oral 21 Tablet TAKE 4 TABLETS BY MOUTH WEEKLY Quantity: 24 Refills: 0 Irina Kamara D.O. Start : 15-Jun-2020 Active Levothyroxi 2019-0 Yes Levothyrox ne Sodium 707 ine Sodium 175 MCG 00:00: 175 MCG Oral Tablet 00 Oral Tablet Quantity: 30 Refills: 0 Start : 18-May-2020 Active Symbicort 2020-0 Yes Anne Symbicort 160-4.5 5-12 Anh GOOD 160-4.5 MCG/ACT 08:53: MCG/ACT Inhalation 30 Inhalation Aerosol Aerosol INHALE TWO PUFFS BY MOUTH TWICE DAILY RINSE MOUTH AFTER USE Quantity: 30.6 Refills: 0 Anne Kamara MD Start : 0Active Fluticasone 2019-0 Yes Anne Fluticason Propionate - Anh GOOD e 50 MCG/ACT 00:00: Propionate Nasal 00 50 MCG/ACT Suspension Nasal Suspension TAKE 2 SPRAY PER NOSTRIL DAILY Quantity: 3 Refills: 3 Anne Kamara MD Start : 0Active 16 GM Bottle ZyrTEC Yes Anne 1 QD ZyrTEC Allergy 10 12-09 Anh GOOD Allergy 10 MG Oral 00:00: MG Oral Tablet 00 Tablet TAKE 1 TABLET DAILY. Quantity: 90 Refills: 3 Anne Kamara MD Start : 0Active Acetaminoph 2018-11 Yes Every 4 en/Hydrocod 2-05 Hours as one Bitart 08:51: needed for 00 Pain For pain rated 3-6/10: Give 1 tab Methocarbam 2018-11 Yes 500 Every 6 ol 2-05 Hours as 08:51: needed for 00 Spasms Monitor for sedation, space dose at least 2 hours apart from Medina. Ondansetron 2018-11 Yes 4 Every 6 Hcl 2-05 Hours as 08:51: needed for 00 Nausea/Vom iting Polyethylen 2018-11 Yes 17 Once Per e Glycol 2- Day 08:51: 00 Rivaroxaban 2018-11 Yes 10 Once Per 2-05 Day 08:51: Administer 00 at the same time each day, continue x 30 days total. Last Sennosides/ 2018-11 Yes 2 Twice Per Docusate 2-05 Day Stay Sodium* 08:51: on this 00 while taking norco to prevent constipati on. Goal for EPINEPHrine Yes Anne EPINEPHrin 0.3 08-05 Anh GOOD e 0.3 MG/0.3ML 00:00: MG/0.3ML Injection 00 Injection Solution Solution Auto-inject Auto-injec or tor INJECT 0.3ML INTRAMUSCU LARLY DIRECTED. Quantity: 1 Refills: 0 Anne Kamara MD Start : 9Active 2 Unit Pen Methotrexat Donna Harley Methotrexa e 2.5 MG 06-13 Anh te 2.5 MG Oral Tablet 00:00: D.O. Oral 00 Tablet TAKE 4 TABLETS BY MOUTH WEEKLY Quantity: 24 Refills: 0 Irina Kamara D.O. Start : 13-Jun-2019 Active Folic Acid No Irina QD Folic Acid 1 MG Oral 06-13 Anh 1 MG Oral Tablet 00:00: D.O. Tablet 00 TAKE 1 TABLET BY MOUTH DAILY DIRECTED Quantity: 90 Refills: 0 Irina Kamara D.O. Start : 13-Jun-2019 Active Methotrexat 2019- Yes Irina Methotrexa e 2.5 MG 06-13 Kamara te 2.5 MG Oral Tablet 00:00: D.O. Oral 00 Tablet TAKE 4 TABLETS BY MOUTH WEEKLY Quantity: 24 Refills: 0 Irina Kamara D.O. Start : 13-Jun-2019 Active Folic Acid 2018- Yes Irina QD Folic Acid 1 MG Oral 06-13 Kamara 1 MG Oral Tablet 00:00: D.O. Tablet 00 TAKE 1 TABLET BY MOUTH DAILY DIRECTED Quantity: 90 Refills: 0 Irina Kamara D.O. Start : 13-Jun-2019 Active Ventolin Yes Anne Ventolin HFA 108 (90 6-06 Anh GOOD HFA 108 Base) 00:00: (90 Base) MCG/ACT 00 MCG/ACT Inhalation Inhalation Aerosol Aerosol Solution Solution 2 puffs every 4-6 hours as needed Quantity: 3 Refills: 3 Anne Kamara MD Start : 17-Apr-2019 Active 18 GM Inhaler Hydroxychlo 2019-0 No Irina 1 Q0.5D Hydroxychl roquine 4-26 Kamara oroquine Sulfate 200 00:00: D.O. Sulfate MG Oral 00 200 MG Tablet Oral Tablet TAKE 1 TABLET TWICE DAILY WITH FOOD. Quantity: 180 Refills: 3 Irina Kamara D.O. Start : 9Active Hydroxychlo Yes Irina 1 Q0.5D Hydroxychl roquine 4-26 Kamara oroquine Sulfate 200 00:00: D.O. Sulfate MG Oral 00 200 MG Tablet Oral Tablet TAKE 1 TABLET TWICE DAILY WITH FOOD. Quantity: 180 Refills: 3 Irina Kamara D.O. Start : 9Active Furosemide Yes Furosemide 40 MG Oral 2-26 40 MG Oral Tablet 00:00: Tablet 00 TAKE 1 1/2 TABLET DAILY DIRECTED. Quantity: 100 Refills: 0 Start : 9Active Montelukast 2019-0 Yes Montelukas Sodium 10 2-26 t Sodium MG Oral 00:00: 10 MG Oral Tablet 00 Tablet Take 1 tablet by mouth once daily Refills: 0 Start : 9Active glipiZIDE 5 Yes glipiZIDE MG Oral 2-26 5 MG Oral Tablet 00:00: Tablet 00 TAKE 1/2 TABLET BY MOUTH EVERY DAY Quantity: 30 Refills: 0 Start : 9Active Losartan Yes 1 QD Losartan Potassium 2-26 Potassium 100 MG Oral 00:00: 100 MG Tablet 00 Oral Tablet TAKE 1 TABLET DAILY. Refills: 0 Start : 9Active 30 Tablet Pack buPROPion Yes buPROPion HCl ER (XL) 2-26 HCl ER 300 MG Oral 00:00: (XL) 300 Tablet 00 MG Oral Extended Tablet Release 24 Extended Hour Release 24 Hour Take 1 tablet every day Refills: 0 Start : 9Active Lovastatin Yes QD Lovastatin 40 MG Oral 2-26 40 MG Oral Tablet 00:00: Tablet 00 TAKE 1 TABLET DAILY DIRECTED. Refills: 0 Start : 9Active 30 Tablet Pack hydrALAZINE Yes Q0.3333D hydrALAZIN HCl - 25 MG 2-26 E HCl - 25 Oral Tablet 00:00: MG Oral 00 Tablet TAKE 1 TABLET 3 TIMES DAILY. Refills: 0 Start : 9Active Pantoprazol Yes 1 QD Pantoprazo e Sodium 20 2-26 le Sodium MG Oral 00:00: 20 MG Oral Tablet 00 Tablet Delayed Delayed Release Release TAKE 1 TABLET DAILY. Refills: 0 Start : 9Active amLODIPine Yes Q0.5D amLODIPine Besylate 5 2-26 Besylate 5 MG Oral 00:00: MG Oral Tablet 00 Tablet TAKE 1 TABLET TWICE DAILY. Refills: 0 Start : 9Active ProAir HFA Yes ProAir HFA 108 (90 2-26 108 (90 Base) 00:00: Base) MCG/ACT 00 MCG/ACT Inhalation Inhalation Aerosol Aerosol Solution Solution 2 puffs every 4-6 hours as needed Quantity: 3 Refills: 1 Start : 9Active 8.5 GM Inhaler Spiriva Yes QD Spiriva Respimat 2-26 Respimat 2.5 MCG/ACT 00:00: 2.5 Inhalation 00 MCG/ACT Aerosol Inhalation Solution Aerosol Solution TAKE 2 INHALATION S DAILY. Refills: 0 Start : 9Active 4 GM Inhaler Aspirin 81 2018-0 Yes QD Aspirin 81 MG Oral 2-26 MG Oral Tablet 00:00: Tablet Delayed 00 Delayed Release Release TAKE 1 TABLET DAILY DIRECTED. Refills: 0 Start : 9Active Ketorolac Yes Ketorolac Tromethamin 2-26 Tromethami e 0.5 % 00:00: ne 0.5 % Ophthalmic 00 Ophthalmic Solution Solution INSTILL 1 DROP INTO bilateral eye DAILY. Refills: 0 Start : 9Active 3 ML Bottle lovastatin No 1 Q1D lovastatin 40 mg 40 mg tablet Take tablet 1 tablet Take 1 every day tablet by oral every day route. by oral route. Lyrica 100 No 1capsul TID Lyrica 100 mg capsule e(s) mg capsule Take 1 Take 1 capsule 3 capsule 3 times a day times a by oral day by route. oral route. meloxicam No meloxicam 15 mg 15 mg tablet TAKE tablet 1 TABLET BY TAKE 1 MOUTH EVERY TABLET BY DAY MOUTH EVERY DAY metoprolol No 1 Q1D metoprolol succ 50 succ 50 mg-hydrochl mg-hydroch orothiazide lorothiazi 12.5 mg de 12.5 mg tablet,ext. tablet,ext rel 24 hr .rel 24 hr Take 1 Take 1 tablet tablet every day every day by oral by oral route. route. Norvasc 5 No 1 Q1D Norvasc 5 mg tablet mg tablet Take 1 Take 1 tablet tablet every day every day by oral by oral route. route. Symbicort No 2puff(s BID Symbicort 80 mcg-4.5 ) 80 mcg-4.5 mcg/actuati mcg/actuat on HFA ion HFA aerosol aerosol inhaler inhaler Inhale 2 Inhale 2 puffs twice puffs a day by twice a inhalation day by route. inhalation route. tramadol 50 No 1 Q6H tramadol mg tablet 50 mg Take 1 tablet tablet Take 1 every 6 tablet hours by every 6 oral route hours by as needed. oral route as needed. amlodipine No amlodipine 5 mg tablet 5 mg Take 1 tablet tablet Take 1 every day tablet by oral every day route. by oral route. aspirin 81 No 1 Q1D aspirin 81 mg mg tablet,anamaria tablet,del yed release ayed Take 1 release tablet Take 1 every day tablet by oral every day route. by oral route. Celebrex No 1capsul BID Celebrex 100 mg e(s) 100 mg capsule capsule Take 1 Take 1 capsule capsule twice a day twice a by oral day by route. oral route. epinephrine No epinephrin 0.3 mg/0.3 e 0.3 mL mg/0.3 mL injection, injection, auto-inject auto-injec or Take as tor Take needed by as needed injection by route for injection 30 days. route for 30 days. fluticasone No fluticason propionate e 50 propionate mcg/actuati 50 on nasal mcg/actuat spray,suspe ion nasal nsion spray,susp ension folic acid No 1 Q1D folic acid 1 mg tablet 1 mg Take 1 tablet tablet Take 1 every day tablet by oral every day route. by oral route. furosemide No furosemide 40 mg 40 mg tablet tablet glipizide 5 No glipizide mg tablet 5 mg Take 1 tablet tablet Take 1 twice a day tablet by oral twice a route for day by 90 days. oral route for 90 days. hydralazine No hydralazin 25 mg e 25 mg tablet tablet hydroxychlo No hydroxychl roquine 200 oroquine mg tablet 200 mg Take 1 tablet tablet Take 1 twice a day tablet by oral twice a route for day by 50 days. oral route for 50 days. levofloxaci No levofloxac n 750 mg in 750 mg tablet tablet levothyroxi No levothyrox ne 150 mcg ine 150 tablet Take mcg tablet 1 tablet Take 1 every day tablet by oral every day route for by oral 90 days. route for 90 days. methotrexat No methotrexa e sodium te sodium 2.5 mg 2.5 mg tablet tablet metoprolol No 1 Q1D metoprolol tartrate 50 tartrate mg tablet 50 mg Take 1 tablet tablet Take 1 every day tablet by oral every day route for by oral 90 days. route for 90 days. montelukast No montelukas 10 mg t 10 mg tablet Take tablet 1 tablet Take 1 every day tablet by oral every day route. by oral route. Medina 5 No Medina 5 mg-325 mg mg-325 mg tablet 1 tablet 1 tablet tablet every 6-8 every 6-8 hrs as hrs as needed for needed for severe pain severe only. pain only. Novolog No Novolog Flexpen Flexpen U-100 U-100 Insulin PRN Insulin PRN Nucala 100 No 1mL Q4W Nucala 100 mg mg subcutaneou subcutaneo s solution us Inject 1 mL solution every 4 Inject 1 weeks by mL every 4 subcutaneou weeks by s route. subcutaneo us route. pantoprazol No pantoprazo e 40 mg le 40 mg tablet,anamaria tablet,del yed release ayed Take 1 release tablet Take 1 every day tablet by oral every day route for by oral 90 days. route for 90 days. pregabalin No pregabalin 100 mg 100 mg capsule capsule Take 1 Take 1 capsule 3 capsule 3 times a day times a by oral day by route. oral route. Spiriva No Spiriva Respimat Respimat 1.25 1.25 mcg/actuati mcg/actuat on solution ion for solution inhalation for Inhale as inhalation needed by Inhale as inhalation needed by route for inhalation 90 days. route for 90 days. Symbicort No 2puff(s Q1D Symbicort 160 mcg-4.5 ) 160 mcg/actuati mcg-4.5 on HFA mcg/actuat aerosol ion HFA inhaler aerosol Inhale 2 inhaler puffs every Inhale 2 day by puffs inhalation every day route for by 90 days. inhalation route for 90 days. Symbicort No 2puff(s BID Symbicort 80 mcg-4.5 ) 80 mcg-4.5 mcg/actuati mcg/actuat on HFA ion HFA aerosol aerosol inhaler inhaler Inhale 2 Inhale 2 puffs twice puffs a day by twice a inhalation day by route. inhalation route. Ventolin No Ventolin HFA 90 HFA 90 mcg/actuati mcg/actuat on aerosol ion inhaler aerosol Inhale 2 inhaler puffs 3 Inhale 2 times a day puffs 3 by times a inhalation day by route. inhalation route. Xarelto 10 No 1 Q1D Xarelto 10 mg tablet mg tablet Take 1 Take 1 tablet tablet every day every day by oral by oral route. route. Zofran 4 mg No 1 Q5H Zofran 4 tablet Take mg tablet 1 tablet Take 1 every 4-6 tablet hours by every 4-6 oral route hours by as needed. oral route as needed. bupropion No bupropion HCl XL 300 HCl XL 300 mg 24 hr mg 24 hr tablet, tablet, extended extended release release cephalexin No cephalexin 500 mg 500 mg capsule capsule Symbicort No Symbicort 160 mcg-4.5 160 mcg/actuati mcg-4.5 on HFA mcg/actuat aerosol ion HFA inhaler aerosol Inhale 2 inhaler puffs every Inhale 2 day by puffs inhalation every day route for by 90 days. inhalation route for 90 days. potassium No potassium chloride ER chloride 10 mEq ER 10 mEq tablet,exte tablet,ext nded ended release release Lasix No Lasix amlodipine No amlodipine 5 mg 1 po 5 mg 1 po bid bid levothyroxi No 1capsul Q1D levothyrox ne 125 mcg e(s) ine 125 capsule mcg Take 1 capsule capsule Take 1 every day capsule by oral every day route. by oral route. pantoprazol No 1 Q1D pantoprazo e 20 mg le 20 mg tablet,anamaria tablet,del yed release ayed Take 1 release tablet Take 1 every day tablet by oral every day route. by oral route. ProAir HFA No 2puff(s TID ProAir HFA 90 ) 90 mcg/actuati mcg/actuat on aerosol ion inhaler aerosol Inhale 2 inhaler puffs 3 Inhale 2 times a day puffs 3 by times a inhalation day by route. inhalation route. methocarbam No .5 BID methocarba ol 500 mg mol 500 mg tablet Take tablet 0.5 tablets Take 0.5 twice a day tablets by oral twice a route. day by oral route. Medina 10 No 1 Q1D Medina 10 mg-325 mg mg-325 mg tablet Take tablet 1 tablet Take 1 every day tablet by oral every day route at by oral dinner. route at dinner. Xiidra 5 % No Xiidra 5 % eye drops eye drops in a in a dropperette dropperett e Albuterol Yes 2 Every 4 Sulfate Hours as needed for Shortness Of Breath Amlodipine Yes 5 Once Per Besylate Day Aspirin Yes 1 Once Per Day Budesonide/ Yes 2 Twice Per Formoterol Day Inh* Bupropion Yes 300 Once Per Hcl Day Folic Acid Yes 1 Once Per Day Glipizide Yes 5 Twice Daily Before Meals Hydroxychlo Yes 200 Twice Per roquine Day Sulfate Levothyroxi Yes 150 Before ne Sodium Breakfast Lovastatin Yes 40 Daily Before Breakfast Metoprolol Yes 50 Twice Per Tartrate Day Montelukast Yes 10 Once Per Sodium Day At Bedtime Pantoprazol Yes 40 Daily e Before Breakfast Pregabalin Yes 100 Twice Per Day Vitamin A Yes 2400 Once Per Day Mepolizumab 2019- No Monthly 10-16 00:00 :00 Methotrexat 2019- No 10 Once Every e Sodium 10-16 Week 00:00 :00 Problems Condition Condition Condition Status Onset Resolution Last Treatin g Comments Name Details Category Date Date Treatment Clinician Date History of History of Problem Active 2018-11 total knee Total Knee 12-14 arthroplast Arthroplast 00:00: y y 00 Type 2 Type 2 Problem Active 2018-11 diabetes Diabetes 11-18 mellitus Mellitus 00:00: 00 Osteoarthri Osteoarthri Problem Active 2018-11 tis of knee tis of Knee 11-18 00:00: 00 Hypothyroid Hypothyroid Problem Active ism ism 02-13 00:00: 00 Anxiety Anxiety Problem Active 02-13 00:00: 00 Depressive Depressive Problem Active disorder Disorder 02-13 00:00: 00 Impairment Impairment Problem Active 2017-11 of balance of Balance 2 00:00: 00 Contusion Contusion Problem Active of foot of Foot 17 00:00: 00 Pain of Pain of Problem Active left ankle Left Ankle 17 joint Joint 00:00: 00 Muscle Muscle Problem Active weakness Weakness 03-04 00:00: 00 Pain in Pain in Problem Active left knee Left Knee 03-04 00:00: 00 Stiffness Stiffness Problem Active of left of Left 03-04 knee Knee 00:00: 00 Diabetes Diabetes Problem Active mellitus Mellitus 02-15 00:00: 00 Dyslipidemi Dyslipidemi Problem Active a a 02-15 00:00: 00 Dry eyes Dry Eyes Problem Active 02-15 00:00: 00 Hypertensiv Hypertensiv Problem Active e disorder e Disorder 02-15 00:00: 00 Sleep apnea Sleep Apnea Problem Active 02-15 00:00: 00 Diabetic Diabetic Problem Active neuropathy Neuropathy Hyperlipide Hyperlipide Problem Active seda seda Iron Iron Problem Active deficiency Deficiency anemia Anemia Systemic Systemic Problem Active lupus Lupus erythematos Erythematos us us Knee pain Knee Pain Problem Active Pain in Pain in Problem Active calf Calf Nausea Nausea Problem Active Body mass Body Mass Problem Active index 40+ - Index 40+ - severely Severely obese Obese Osteoarthri Osteoarthri Problem Active tis of left tis of Left knee joint Knee Joint Osteopenia Osteopenia Problem Active of multiple of multiple sites sites Aching Aching Problem Active headache headache Onychia Onychia Problem Active Caregiver Caregiver Problem Active burden burden Chronic Chronic Problem Active joint pain joint pain Abnormal Abnormal Problem Active gait gait Chronic Chronic Problem Active post-trauma post-trauma tic stress tic stress disorder disorder (PTSD) (PTSD) Bilateral Bilateral Problem Active edema of edema of lower lower extremity extremity CFS CFS Problem Active (chronic (chronic fatigue fatigue syndrome) syndrome) Allergic Allergic Problem Active rhinitis rhinitis Active Active Problem Active asthma asthma Asthma Asthma Problem Active GERD GERD Problem Active (gastroesop (gastroesop hageal hageal reflux reflux disease) disease) Immune Immune Problem Active disorder disorder Lupus Lupus Problem Active Pneumonia Pneumonia Problem Active 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 Obstructive Obstructive Problem Active sleep apnea sleep apnea on CPAP on CPAP Procedures Procedure Date / Time Performed Performing Clinician Devic e Sed Rate 2020-07-26 00:00:00 CRP 2020-07-26 00:00:00 CMP(Complete Metabolic Panel) 2020-07-26 00:00:00 CBC 2020-07-26 00:00:00 L - IgE+Allergens Zone 2(30) 2020-06-07 00:00:00 CBC 2020-06-07 00:00:00 L - ENT Allergens (39) 2020-06-07 00:00:00 RADIOLOGIC EXAM KNEE 1 OR 2 VIEWS 2020-01-08 00:00:00 RADIOLOGIC EXAM KNEE 1 OR 2 VIEWS 2019-11-27 00:00:00 RADIOLOGIC EXAM KNEE 1 OR 2 VIEWS 2019-10-28 00:00:00 Total Knee Arthroplasty (Surg) 2019-10-13 00:00:00 RADIOLOGIC EXAM, KNEE; COMPLETE, 4 2019-08-14 00:00:00 OR MORE VIEWS Knee Arthroscopy with Partial 2018-10-10 00:00:00 Medial or Lateral Meniscectomy (Surg) Knee Arthroscopy with Partial 2018-10-10 00:00:00 Medial or Lateral Meniscectomy OFFICE/OUTPATIENT VISIT EST 2018-04-16 14:30:00 OFFICE/OUTPATIENT VISIT NEW 2017-09-24 08:30:00 Back Surgery REMOVAL OF THYROID BX BREAST PERCUT W/O IMAGE ELIAS RAD DISSECT FOR DEBULK History of Lumbar vertebral fusion History of Thyroidectomy History of Hysterectomy total abdominal with removal of both ovaries History of Capsulorrhaphy wrist History of Knee replacement Results Test Description Test Time Test Comments Text Results Atomic Results Result Comments CBC 2020-07-28 11:54:00 Test Item Value Reference Range Comments White Blood Cell (test code = White Blood Cell) 5.4 K/uL 3.5-11.1 Red Blood Cell (test code = Red Blood Cell) 3.56 {M/uL} 3.69 -4.87 Hemoglobin (test code = Hemoglobin) 10.8 g/dL 11.4-14.4 Hematocrit (test code = Hematocrit) 33 % 33-41 Mean Corpuscular Volume (test code = Mean Corpuscular Volume) 91 .9 fL 79.0-95.0 Mean Corpuscular Hemoglobin (test code = Mean Corpuscular 30.3 p g/mL 27.0-33.0 Hemoglobin) Mean Corpuscular Hemoglobin Concentration (test code = Mean 33.0 g/dL 33.5-35.5 Corpuscular Hemoglobin Concentration) Red Cell Distribution Width (test code = Red Cell 15.5 % 12.0-15.0 Distribution Width) Platelet (test code = Platelet) 282 K/uL 130-353 Mean Platelet Volume (test code = Mean Platelet Volume) 9.6 fL 7.5-10.7 Neutrophil Count, absolute (test code = Neutrophil Count, 2.9 K/ uL 1.9-7.2 absolute) Neutrophil Count Percentage (test code = Neutrophil Count 53.0 % 43.0-72.0 Percentage) Lymphocyte Count, absolute (test code = Lymphocyte Count, 2.0 K/ uL 1.1-2.7 absolute) Lymphocyte Count Percentage (test code = Lymphocyte Count 36.2 % 17.0-44.0 Percentage) Monocyte Count, absolute (test code = Monocyte Count, 0.5 K/uL 0.3-0.8 absolute) Monocyte Count Percentage (test code = Monocyte Count 8.9 % 4.5-12.4 Percentage) Eosinophil Count, absolute (test code = Eosinophil Count, 0.1 K/ uL 0.0-0.5 absolute) Eosinophil Count Percentage (test code = Eosinophil Count 1.5 % 0.7-7.8 Percentage) Basophil Count, absolute (test code = Basophil Count, 0.0 K/uL 0.0-0.1 absolute) Basophil Count Percentage (test code = Basophil Count 0.4 % 0.2-1.1 Percentage) Sed [id number] 11:54:00 Test Item Value Reference Range Comments Erythrocyte Sedimentation Rate (test code = 37 {mm/hr} 0-30 Erythrocyte Sedimentation Rate) [id number] 11:54:00 Test Item Value Reference Range Comments C-Reactive Protein (test code = C-Reactive Protein) 6 mg/L <10 CMP(Complete Metabolic Panel)2020-07-28 11:54:00 Test Item Value Reference Range Comments Glucose (test code = Glucose) 158 mg/dL 74-106 Sodium (test code = Sodium) 140 mmol/L 135-145 Potassium (test code = Potassium) 4.3 mmol/L 3.5-5.3 Chloride (test code = Chloride) 105 mmol/L 98-107 CO2 (test code = CO2) 27 mmol/L 22-30 Creatinine, serum (test code = Creatinine, 1.10 mg/dL 0.10- 1.04 serum) Glomerular Filtration Rate (test code = 51 mL/min/1.7 >60 Glomerular Filtration Rate) Glomerular Filtration Rate AA (test code = >60 >60 Glomerular Filtration Rate AA) Blood Urea Nitrogen (test code = Blood Urea 13 mg/dL 7-17 Nitrogen) Calcium (test code = Calcium) 9.4 mg/dL 8.4-10.5 Phosphorus (test code = Phosphorus) 3.3 mg/dL 2.5-4.5 Total Protein (test code = Total Protein) 7.0 g/dL 6.3-8. 2 Albumin (test code = 19504-2) 4.1 g/dL 3.5-5.0 Total Bilirubin (test code = Total Bilirubin) 0.3 mg/dL 0. 2-1.3 Bilirubin, unconj (test code = Bilirubin, 0.2 mg/dL 0.0-1. 1 unconj) Bilirubin, Direct (test code = Bilirubin, 0.1 mg/dL 0.0-0. 4 Direct) Alkaline Phosphatase (test code = Alkaline 117 U/L 20-15 0 Phosphatase) Alanine Transaminase (test code = Alanine 16 U/L 0-35 Transaminase) Aspartate Aminotransferase (test code = 21 U/L 3-36 Aspartate Aminotransferase) [id number] 11:38:00 Test Item Value Reference Range Comments Urine Color (test code = Urine Color) LT. YELLOW Yellow Urine Clarity (test code = Urine Clarity) CLEAR Clear Urine Glucose (test code = Urine Glucose) NEGATIVE Negati ve Urine Ketones (test code = Urine Ketones) NEGATIVE Negati ve Urine Bilirubin (test code = Urine NEGATIVE Negative Bilirubin) Urine Specific Malone (test code = Urine 1.028 1.010- 1.030 Refractometer Specific Malone) Urine Blood (test code = Urine Blood) NEGATIVE Negative Urine pH (test code = Urine pH) 6.0 5.0-8.0 Urine Protein (test code = Urine Protein) NEGATIVE Negati ve Urine Urobilinogen (test code = Urine 0.2 Eu/dl 0.2 Urobilinogen) Urine Nitrites (test code = Urine Nitrites) NEGATIVE Nega tive Urine Leukocytes (test code = Urine NEGATIVE Negative Leukocytes) [id number] 11:17:00 Test Item Value Reference Range Comments White Blood Cell (test code = White Blood Cell) 7.5 K/uL 3.5-11.1 Red Blood Cell (test code = Red Blood Cell) 3.79 {M/uL} 3.69 -4.87 Hemoglobin (test code = Hemoglobin) 11.7 g/dL 11.4-14.4 Hematocrit (test code = Hematocrit) 34 % 33-41 Mean Corpuscular Volume (test code = Mean 89.2 fL 79.0-9 5.0 Corpuscular Volume) Mean Corpuscular Hemoglobin (test code = Mean 30.9 pg/mL 27 .0-33.0 Corpuscular Hemoglobin) Mean Corpuscular Hemoglobin Concentration (test 34.6 g/dL 33.5-35.5 code = Mean Corpuscular Hemoglobin Concentration) Red Cell Distribution Width (test code = Red 14.4 % 12. 0-15.0 Cell Distribution Width) Platelet (test code = Platelet) 236 K/uL 130-353 Mean Platelet Volume (test code = Mean Platelet 9.8 fL 7.5-10.7 Volume) Neutrophil Count, absolute (test code = 4.9 K/uL 1.9-7.2 Neutrophil Count, absolute) Neutrophil Count Percentage (test code = 65.2 % 43.0-72 .0 Neutrophil Count Percentage) Lymphocyte Count, absolute (test code = 1.8 K/uL 1.1-2.7 Lymphocyte Count, absolute) Lymphocyte Count Percentage (test code = 24.3 % 17.0-44 .0 Lymphocyte Count Percentage) Monocyte Count, absolute (test code = Monocyte 0.7 K/uL 0 .3-0.8 Count, absolute) Monocyte Count Percentage (test code = Monocyte 9.4 % 4.5-12.4 Count Percentage) Eosinophil Count, absolute (test code = 0.0 K/uL 0.0-0.5 Eosinophil Count, absolute) Eosinophil Count Percentage (test code = 0.5 % 0.7-7.8 Eosinophil Count Percentage) Basophil Count, absolute (test code = Basophil 0.0 K/uL 0 .0-0.1 Count, absolute) Basophil Count Percentage (test code = Basophil 0.3 % 0.2-1.1 Count Percentage) Class [id number] 11:16:00 Test Item Value Reference Range Comments Class Description (test code = Comment Levels of Specific IgE Class Description) Class Grant cription of Class ----- --------- < 0.10 0 Negat jono 0.10 - 0.31 0/I Equivocal/Low 0.32 - 0.55 I Low 0.56 - 1.40 II Moderate 1.41 - 3.90 III High 3.91 - 19.00 IV Very High 19.01 - 100.00 V Very High >100.00 Very High C728-JlW D pteronyssinus (test <0.10 Class 0 code = 6096-2) Z795-DqJ D farinae (test code = <0.10 Class 0 6095-4) R065-QzV Cat Dander (test code = <0.10 Class 0 6833-8) I613-HgX Dog Dander (test code = <0.10 Class 0 6098-8) O146-HiJ Bermuda Grass (test <0.10 Class 0 code = 6041-8) D324-NfO Ken Grass (test <0.10 Class 0 code = 6265-3) M164-FfM Kwame Grass (test <0.10 Class 0 code = 6152-3) I382-WaZ Bahia Grass (test code <0.10 Class 0 = 6034-3) M141-GdH Cockroach, Amharic (test <0.10 Class 0 code = 6078-0) S392-JgZ Cockroach, Russian <0.10 Class 0 (test code = 42915-7) R252-IqI Penicillium chrysogen <0.10 Class 0 (test code = 6212-5) L895-TiM Cladosporium herbarum <0.10 Class 0 (test code = 6075-6) L592-WoW Aspergillus fumigatus <0.10 Class 0 (test code = 6025-1) D514-GqV Mucor racemosus (test <0.10 Class 0 code = 6182-0) R154-ElM Alternaria alternata <0.10 Class 0 (test code = 6020-2) S073-MwC Setomelanomma rostrat <0.10 Class 0 (test code = 7393-2) S060-IuA Stemphylium herbarum <0.10 Class 0 (test code = 6252-1) H039-KxN Rhizopus nigricans <0.10 Class 0 (test code = 6229-9) X825-UpJ Aureobasidi pullulans <0.10 Class 0 (test code = 6211-7) D927-VgQ Epicoccum purpur (test <0.10 Class 0 code = 6111-9) I412-MaJ Tilletia Tritici (test <0.10 Class 0 code = 56144-0) Q420-XtX Acremonium kiliense <0.10 Class 0 (test code = 6066-5) M407-TfT Maple/Loving (test <0.10 Class 0 code = 7155-5) L569-JpP Ritika, [place] (test code <0.10 Class 0 = 14038-7) M342-VnZ Mason, White (test code = <0.10 Class 0 6189-5) F540-MfF Elm, Russian (test <0.10 Class 0 code = 6109-3) V397-HeE [place] (test code = <0.10 Class 0 6090-5) Z796-PjX [place], White (test code <0.10 Class 0 = 7397-3) A900-SsH Pecan, [place] (test <0.10 Class 0 code = 6209-1) F952-HvC Rhea, Red (test code = <0.10 Class 0 7195-1) Z205-UqX Sweet Gum (test code = <0.10 Class 0 74382-9) L024-LfH Ragweed, Short (test <0.10 Class 0 code = 6085-5) L140-ZqL Ragweed, Giant (test <0.10 Class 0 code = 6124-2) U146-BcC Mugwort (test code = <0.10 Class 0 6183-8) H218-FtP Plantain, Cape Verdean (test <0.10 Class 0 code = 6110-1) R965-NaP [place] (test <0.10 Class 0 code = 7428-6) M135-LbR Rheems (test code = <0.10 Class 0 6128-3) R356-XaU Pigweed, Rough (test <0.10 Class 0 code = 7604-2) P442-UeG Dockweed, Yellow (test <0.10 Class 0 code = 6738-9) [facility] performed at: [BN] [address], [place], [address], , [employer]: Silverio Locke MDTest(s) 073765-C113-YxD Cockroach, Russian; 895691-Z789-RaA Tilletia Tritici; 050682-X685-AdN Rhea, Red;875914-G178-HgY Sweet Gum; 147078-O337-GzE Dockweed, Yellowwere developed and had performance characteristicsdetermined by [facility]. These tests have not been cleared orapproved by the U.S. Food and Drug Administration. The FDAhas determined that such clearance or approval is notnecessary. These tests are used forclinical purposes.These should not be regarded as investigational or forresearch.Class [id number] 11:15:00 Test Item Value Reference Range Comments Class Description (test code = Comment Levels of Specific IgE Class Description) Class D escription of Class ----- ---- < 0.1 0 0 Negative 0.10 - 0.31 0/I Equivocal/L ow 0.32 - 0.55 I Low 0.56 - 1.40 I I Moderate 1.41 - 3.90 II I High 3 .91 - 19.00 IV Very High 19.01 - 100.00 V Very High >100.00 Very High Immunoglobulin E, Total (test 41 {IU/mL} 6-495 code = 45611-9) E657-RbL D pteronyssinus (test <0.10 Class 0 code = 6096-2) H404-NgO D farinae (test code = <0.10 Class 0 6095-4) B721-GrJ Cat Dander (test code <0.10 Class 0 = 6833-8) H219-BlC Dog Dander (test code <0.10 Class 0 = 6098-8) H378-FfO [place] Grass (test <0.10 Class 0 code = 6041-8) F673-VjP Ken Grass (test <0.10 Class 0 code = 6265-3) Y425-NlE Kwame Grass (test <0.10 Class 0 code = 6152-3) I776-CuT Bahia Grass (test code <0.10 Class 0 = 6034-3) G729-LjZ Cockroach, Russian <0.10 Class 0 (test code = 64226-4) X117-QdG Penicillium chrysogen <0.10 Class 0 (test code = 6212-5) V823-LmV Cladosporium herbarum <0.10 Class 0 (test code = 6075-6) F329-OgY Aspergillus fumigatus <0.10 Class 0 (test code = 6025-1) M097-AqF Mucor racemosus (test <0.10 Class 0 code = 6182-0) D929-LcZ Alternaria alternata <0.10 Class 0 (test code = 6020-2) K907-EjH Stemphylium herbarum <0.10 Class 0 (test code = 6252-1) V750-WbK Common Silver Birch <0.10 Class 0 (test code = 84961-2) P855-RcD Mason, White (test code <0.10 Class 0 = 6189-5) U636-IiN Elm, Russian (test <0.10 Class 0 code = 6109-3) E860-DoP Maple/Loving (test <0.10 Class 0 code = 7155-5) P192-RjS [place], White (test <0.10 Class 0 code = 7407-0) H209-FvB Maple Eclectic [place] <0.10 Class 0 (test code = 6263-8) H829-SsS White Bolivar (test <0.10 Class 0 code = 6281-0) W600-RwY Sweet Gum (test code = <0.10 Class 0 62658-0) C812-QjH Rhea, Mountain (test <0.10 Class 0 code = 6178-8) A820-AuQ Ragweed, Short (test <0.10 Class 0 code = 6085-5) D807-RqP Mugwort (test code = <0.10 Class 0 6183-8) R386-WlO Plantain, Cape Verdean <0.10 Class 0 (test code = 6110-1) P444-AxQ Pigweed, Rough (test <0.10 Class 0 code = 7604-2) I048-CyU Sheep [place] (test <0.10 Class 0 code = 6244-8) S604-CfW Nettle (test code = <0.10 Class 0 6186-1) [facility] performed at: [BN] [address], [address], , [employer]: Silverio Locke MDTest(s) 134260-J139-RkZ Cockroach, Russian; 859285-G932-JtX [place], White; 523288-D878-VlY Sweet Gumwere developed and had performance characteristicsdetermined by [facility]. These tests have not been cleared orapproved by the U.S. Food and Drug Administration. The FDAhas determined that such clearance or approval is notnecessary. These tests are used for clinical purposes.These should not be regarded as investigational or forresearch.Blood hemoglobin measurement (mass/volume)2019-10-16 06:16:00 Test Item Value Reference Range Comments Hemoglobin (test code = 718-7) 10.9 11.4-14.4 Automated blood hematocrit (volume fraction)2019-10-16 06:16:00 Test Item Value Reference Range Comments Hematocrit (test code = 4544-3) 32.8 33.3-41.4 POC [id number] 05:47:00 Test Item Value Reference Range Comments POC Glucose (test code = POC Glucose) 101 74-106 [id number] 10:35:[address] [address] Patient: IVAN ANGELES : 1945 Sex: F Address: [address] [place] [address] [place] [address] Unit #: [id number] REQ SEQ #: [id number] Location: [address] [place] [address] Room #: [id number] Ordering: HERMAN VERGARA PA-C Diagnosis: M1712 US VENOUS LEG DOPPLER LEFT Clinical Information: M1712. Left calf pain and edema status post total knee arthroplasty. Technique: Burgess scale, color Doppler imaging and spectral analysis were performed of the left lower extremity. Sonography of the left external iliac, common femoral, femoral, popliteal, peroneal and posterior tibial veins shows no evidence of deep venous thrombosis. These vessels show normal compressibility, and color Doppler blood flow. There is normal respiratory variation by spectral analysis within these vessels. The left great saphenous and small saphenous veins are patent as well. Subcutaneous edema seen for the left calf. There is a normal compressible right common femoral vein with normal color and duplex Doppler waveforms. Impression: 1. No evidence for left lower extremity venous thrombosis. 2. Left calf edema. Final report electronically signed by: Geovanni Rod DO Signed by: MUNIR ROD DO 10/15/19 1030 cc: HERMAN VERGARA PA-C, WILLIAM C DOSodium [id number] 03:47:00 Test Item Value Reference Range Comments Sodium Level (test code = 369620728) 142 137-144 Potassium [id number] 03:47:00 Test Item Value Reference Range Comments Potassium Level (test code = 782462412) 3.5 3.1-5.1 Chloride rhpbc4582-09-94 03:47:00 Test Item Value Reference Range Comments Chloride Level (test code = 698221023) 107 101-110 Carbon dioxide [id number] 03:47:00 Test Item Value Reference Range Comments Carbon Dioxide Level (test code = 51279328) 27 23-3 1 Glucose [id number] 03:47:00 Test Item Value Reference Range Comments Glucose Level (test code = 72247742) 96 70-105 [id number] 03:47:00 Test Item Value Reference Range Comments Blood Urea Nitrogen (test code = 724929563) 11.0 9.8- 20.1 Creatinine dxiul2459-90-10 03:47:00 Test Item Value Reference Range Comments Creatinine (test code = 594765522) 1.23 0.57-1.11 Estimation of creatinine syfzqnyja9997-56-91 03:47:00 Test Item Value Reference Range Comments Estimated Creatinine Clearance 50.55 P T Ht: 165.1cm, PT Wt: 114KG Calc (test code = 383625789) Anion gap krmuajbaxlb1260-94-66 03:47:00 Test Item Value Reference Range Comments Anion Gap (test code = 25581522) 12 7-16 [id number] 03:47:00 Test Item Value Reference Range Comments Calcium Level (test code = 17314676) 9.0 8.4-10.2 [id number] 11:50:[address] [address] Patient: IVAN ANGELES : 1945 Sex: F Address: [address] [place] [address] [place] [address] Unit #: [id number] REQ SEQ #: [id number] Location: [facility] Room #: [facility] Ordering: HERMAN VERGARA PA-C Diagnosis: M1712 KNEE LEFT 1 OR 2VIEWS Clinical Information: M1712 AP and crosstable lateral views of the left kneeshow changes of total arthroplasty. Prosthesis appears intact, appropriately aligned. Small amountof gas in the joint space and soft tissues of the knee and surgical ami are in place along the anterior knee from recent surgery. IMPRESSION: Changes of total left knee arthroplasty. Final report electronically signed by: Geovanni Rod DO Signed by: MUNIR ROD DO 10/13/19 1481 cc: HERMAN VERGARA PA-C, WILLIAM C DOGlucose [Mass/volume] in Capillary blood by Glucometer 2019-10-06 11:43:00 Test Item Value Reference Range Comments POC nova glucose (test code = POC nova glucose) 127 mg/dL 74-106 Assessments Condition Name Status Diagnosis Date Treating Clinici an History of total knee arthroplasty Active 2020-05-19 08 :49:13 Osteoarthritis of left knee joint Active 2020-05-19 08: 49:13 History of total knee arthroplasty Active 2020-05-19 08 :49:13 Osteoarthritis of left knee joint Active 2020-05-19 08: 49:13 Stiffness of left knee Active 2020-05-04 12:05:26 Abnormal gait Active 2020-05-04 12:05:26 Pain in left knee Active 2020-05-04 12:05:26 Muscle weakness Active 2020-05-04 12:05:26 Stiffness of left knee Active 2020-05-04 12:05:26 Abnormal gait Active 2020-05-04 12:05:26 Pain in left knee Active 2020-05-04 12:05:26 Muscle weakness Active 2020-05-04 12:05:26 Stiffness of left knee Active 2020-04-28 13:48:02 Abnormal gait Active 2020-04-28 13:48:02 Pain in left knee Active 2020-04-28 13:48:02 Muscle weakness Active 2020-04-28 13:48:02 Stiffness of left knee Active 2020-04-28 13:48:02 Abnormal gait Active 2020-04-28 13:48:02 Pain in left knee Active 2020-04-28 13:48:02 Muscle weakness Active 2020-04-28 13:48:02 Stiffness of left knee Active 2020-04-21 17:47:08 Abnormal gait Active 2020-04-21 17:47:08 Pain in left knee Active 2020-04-21 17:47:08 Muscle weakness Active 2020-04-21 17:47:08 Stiffness of left knee Active 2020-04-21 17:47:08 Abnormal gait Active 2020-04-21 17:47:08 Pain in left knee Active 2020-04-21 17:47:08 Muscle weakness Active 2020-04-21 17:47:08 Stiffness of left knee Active 2020-04-19 09:48:21 Abnormal gait Active 2020-04-19 09:48:21 Pain in left knee Active 2020-04-19 09:48:21 Muscle weakness Active 2020-04-19 09:48:21 Abnormal gait Active 2020-04-19 09:48:21 Pain in left knee Active 2020-04-19 09:48:21 Muscle weakness Active 2020-04-19 09:48:21 Stiffness of left knee Active 2020-04-19 09:48:21 Stiffness of left knee Active 2020-04-12 08:40:02 Abnormal gait Active 2020-04-12 08:40:02 Pain in left knee Active 2020-04-12 08:40:02 Muscle weakness Active 2020-04-12 08:40:02 Stiffness of left knee Active 2020-04-06 14:00:27 Abnormal gait Active 2020-04-06 14:00:27 Pain in left knee Active 2020-04-06 14:00:27 Muscle weakness Active 2020-04-06 14:00:27 Stiffness of left knee Active 2020-04-02 13:37:47 Abnormal gait Active 2020-04-02 13:37:47 Pain in left knee Active 2020-04-02 13:37:47 Muscle weakness Active 2020-04-02 13:37:47 Stiffness of left knee Active 2020-03-31 13:51:40 Abnormal gait Active 2020-03-31 13:51:40 Pain in left knee Active 2020-03-31 13:51:40 Muscle weakness Active 2020-03-31 13:51:40 Stiffness of left knee Active 2020-03-24 13:57:55 Abnormal gait Active 2020-03-24 13:57:55 Pain in left knee Active 2020-03-24 13:57:55 Muscle weakness Active 2020-03-24 13:57:55 Stiffness of left knee Active 2020-03-23 09:12:47 Abnormal gait Active 2020-03-23 09:12:47 Pain in left knee Active 2020-03-23 09:12:47 Muscle weakness Active 2020-03-23 09:12:47 Stiffness of left knee Active 2020-03-19 10:48:53 Abnormal gait Active 2020-03-19 10:48:53 Pain in left knee Active 2020-03-19 10:48:53 Muscle weakness Active 2020-03-19 10:48:53 Stiffness of left knee Active 2020-03-16 08:51:47 Abnormal gait Active 2020-03-16 08:51:47 Pain in left knee Active 2020-03-16 08:51:47 Muscle weakness Active 2020-03-16 08:51:47 Stiffness of left knee Active 2020-03-12 10:47:06 Abnormal gait Active 2020-03-12 10:47:06 Pain in left knee Active 2020-03-12 10:47:06 Muscle weakness Active 2020-03-12 10:47:06 Stiffness of left knee Active 2020-03-10 09:40:47 Abnormal gait Active 2020-03-10 09:40:47 Pain in left knee Active 2020-03-10 09:40:47 Muscle weakness Active 2020-03-10 09:40:47 Pain in left knee Active 2020-03-06 19:56:31 Stiffness of left knee Active 2020-03-06 19:56:31 Muscle weakness Active 2020-03-06 19:56:31 Abnormal gait Active 2020-03-06 19:56:31 Stiffness of left knee Active 2020-03-03 15:28:21 Abnormal gait Active 2020-03-03 15:28:21 Pain in left knee Active 2020-03-03 15:28:21 Muscle weakness Active 2020-03-03 15:28:21 Stiffness of left knee Active 2020-02-20 15:21:15 Abnormal gait Active 2020-02-20 15:21:15 Pain in left knee Active 2020-02-20 15:21:15 Muscle weakness Active 2020-02-20 15:21:15 Stiffness of left knee Active 2020-02-18 11:00:33 Abnormal gait Active 2020-02-18 11:00:33 Pain in left knee Active 2020-02-18 11:00:33 Muscle weakness Active 2020-02-18 11:00:33 Stiffness of left knee Active 2020-02-13 10:02:12 Abnormal gait Active 2020-02-13 10:02:12 Pain in left knee Active 2020-02-13 10:02:12 Muscle weakness Active 2020-02-13 10:02:12 Stiffness of left knee Active 2020-02-13 10:02:12 Abnormal gait Active 2020-02-13 10:02:12 Pain in left knee Active 2020-02-13 10:02:12 Muscle weakness Active 2020-02-13 10:02:12 History of total knee arthroplasty Active 2020-02-12 11 :05:12 History of total knee arthroplasty Active 2020-02-12 11 :05:12 Stiffness of left knee Active 2020-02-11 13:36:17 Abnormal gait Active 2020-02-11 13:36:17 Pain in left knee Active 2020-02-11 13:36:17 Muscle weakness Active 2020-02-11 13:36:17 Stiffness of left knee Active 2020-02-11 13:36:17 Abnormal gait Active 2020-02-11 13:36:17 Pain in left knee Active 2020-02-11 13:36:17 Muscle weakness Active 2020-02-11 13:36:17 Stiffness of left knee Active 2020-01-30 09:09:59 Abnormal gait Active 2020-01-30 09:09:59 Pain in left knee Active 2020-01-30 09:09:59 Muscle weakness Active 2020-01-30 09:09:59 Stiffness of left knee Active 2020-01-30 09:09:59 Abnormal gait Active 2020-01-30 09:09:59 Pain in left knee Active 2020-01-30 09:09:59 Muscle weakness Active 2020-01-30 09:09:59 Abnormal gait Active 2020-01-28 15:21:24 Pain in left knee Active 2020-01-28 15:21:24 Stiffness of left knee Active 2020-01-28 15:21:24 Muscle weakness Active 2020-01-28 15:21:24 Abnormal gait Active 2020-01-28 15:21:24 Pain in left knee Active 2020-01-28 15:21:24 Stiffness of left knee Active 2020-01-28 15:21:24 Muscle weakness Active 2020-01-28 15:21:24 Pain in left knee Active 2020-01-23 07:59:15 Stiffness of left knee Active 2020-01-23 07:59:15 Muscle weakness Active 2020-01-23 07:59:15 Abnormal gait Active 2020-01-23 07:59:15 Pain in left knee Active 2020-01-23 07:59:15 Stiffness of left knee Active 2020-01-23 07:59:15 Muscle weakness Active 2020-01-23 07:59:15 Abnormal gait Active 2020-01-23 07:59:15 Pain in left knee Active 2020-01-22 13:26:40 Stiffness of left knee Active 2020-01-22 13:26:43 Muscle weakness Active 2020-01-22 13:26:47 Abnormal gait Active 2020-01-22 13:26:58 Pain in left knee Active 2020-01-22 13:26:40 Stiffness of left knee Active 2020-01-22 13:26:43 Muscle weakness Active 2020-01-22 13:26:47 Abnormal gait Active 2020-01-22 13:26:58 History of total knee arthroplasty Active 2020-01-08 10 :19:25 Osteoarthritis of left knee joint Active 2020-01-08 10: 21:12 History of total knee arthroplasty Active 2020-01-08 10 :19:25 Osteoarthritis of left knee joint Active 2020-01-08 10: 21:12 History of total knee arthroplasty Active 2019-11-27 10 :01:51 History of total knee arthroplasty Active 2019-10-28 16 :01:42 Osteoarthritis of knee Active 2019-10-02 11:04:24 Pain in left knee Active 2019-10-03 09:39:28 Type 2 diabetes mellitus Active 2019-10-03 09:39:28 Body mass index 40+ - severely obese Active 2019-10-03 09:39:28 Osteoarthritis of knee Active 2019-09-18 10:16:12 Pain in left knee Active 2019-09-18 10:16:22 Type 2 diabetes mellitus Active 2019-09-18 10:16:27 Body mass index 40+ - severely obese Active 2019-09-18 10:17:46 Pain in left knee Active 2019-08-14 08:37:50 Osteoarthritis of knee Active 2019-08-14 09:15:35 Pain in left knee Active 2019-02-13 11:18:28 Pain in left knee Active 2019-02-12 10:00:31 Stiffness of left knee Active 2019-02-12 10:00:31 Muscle weakness Active 2019-02-12 10:00:31 Abnormal gait Active 2019-02-12 10:00:31 Impairment of balance Active 2019-02-12 10:00:31 Pain in left knee Active 2019-02-12 10:00:31 Stiffness of left knee Active 2019-02-12 10:00:31 Muscle weakness Active 2019-02-12 10:00:31 Abnormal gait Active 2019-02-12 10:00:31 Impairment of balance Active 2019-02-12 10:00:31 Pain in left knee Active 2019-02-10 10:04:13 Stiffness of left knee Active 2019-02-10 10:04:13 Muscle weakness Active 2019-02-10 10:04:13 Abnormal gait Active 2019-02-10 10:04:13 Impairment of balance Active 2019-02-10 10:04:13 Pain in left knee Active 2019-02-10 10:04:13 Stiffness of left knee Active 2019-02-10 10:04:13 Muscle weakness Active 2019-02-10 10:04:13 Abnormal gait Active 2019-02-10 10:04:13 Impairment of balance Active 2019-02-10 10:04:13 Pain in left knee Active 2019-02-05 14:46:10 Stiffness of left knee Active 2019-02-05 14:46:10 Muscle weakness Active 2019-02-05 14:46:10 Abnormal gait Active 2019-02-05 14:46:10 Impairment of balance Active 2019-02-05 14:46:10 Pain in left knee Active 2019-02-05 14:46:10 Stiffness of left knee Active 2019-02-05 14:46:10 Muscle weakness Active 2019-02-05 14:46:10 Abnormal gait Active 2019-02-05 14:46:10 Impairment of balance Active 2019-02-05 14:46:10 Pain in left knee Active 2019-02-03 10:23:15 Stiffness of left knee Active 2019-02-03 10:23:15 Muscle weakness Active 2019-02-03 10:23:15 Abnormal gait Active 2019-02-03 10:23:15 Impairment of balance Active 2019-02-03 10:23:15 Pain in left knee Active 2019-02-03 10:23:15 Stiffness of left knee Active 2019-02-03 10:23:15 Muscle weakness Active 2019-02-03 10:23:15 Abnormal gait Active 2019-02-03 10:23:15 Impairment of balance Active 2019-02-03 10:23:15 Pain in left knee Active 2019-01-31 11:28:49 Stiffness of left knee Active 2019-01-31 11:28:49 Muscle weakness Active 2019-01-31 11:28:49 Abnormal gait Active 2019-01-31 11:28:49 Impairment of balance Active 2019-01-31 11:28:49 Pain in left knee Active 2019-01-31 11:28:49 Stiffness of left knee Active 2019-01-31 11:28:49 Muscle weakness Active 2019-01-31 11:28:49 Abnormal gait Active 2019-01-31 11:28:49 Impairment of balance Active 2019-01-31 11:28:49 Pain in left knee Active 2019-01-27 10:44:19 Stiffness of left knee Active 2019-01-27 10:44:19 Muscle weakness Active 2019-01-27 10:44:19 Abnormal gait Active 2019-01-27 10:44:19 Impairment of balance Active 2019-01-27 10:44:19 Pain in left knee Active 2019-01-27 10:44:19 Stiffness of left knee Active 2019-01-27 10:44:19 Muscle weakness Active 2019-01-27 10:44:19 Abnormal gait Active 2019-01-27 10:44:19 Impairment of balance Active 2019-01-27 10:44:19 Pain in left knee Active 2019-01-22 10:39:09 Stiffness of left knee Active 2019-01-22 10:39:09 Muscle weakness Active 2019-01-22 10:39:09 Abnormal gait Active 2019-01-22 10:39:09 Impairment of balance Active 2019-01-22 10:39:09 Pain in left knee Active 2019-01-22 10:39:09 Stiffness of left knee Active 2019-01-22 10:39:09 Muscle weakness Active 2019-01-22 10:39:09 Abnormal gait Active 2019-01-22 10:39:09 Impairment of balance Active 2019-01-22 10:39:09 Pain in left knee Active 2019-01-20 11:57:20 Stiffness of left knee Active 2019-01-20 11:57:20 Muscle weakness Active 2019-01-20 11:57:20 Abnormal gait Active 2019-01-20 11:57:20 Impairment of balance Active 2019-01-20 11:57:20 Pain in left knee Active 2019-01-20 11:57:20 Stiffness of left knee Active 2019-01-20 11:57:20 Muscle weakness Active 2019-01-20 11:57:20 Abnormal gait Active 2019-01-20 11:57:20 Impairment of balance Active 2019-01-20 11:57:20 Pain in left knee Active 2019-01-15 11:30:33 Stiffness of left knee Active 2019-01-15 11:30:33 Muscle weakness Active 2019-01-15 11:30:33 Abnormal gait Active 2019-01-15 11:30:33 Impairment of balance Active 2019-01-15 11:30:33 Pain in left knee Active 2019-01-15 11:30:33 Stiffness of left knee Active 2019-01-15 11:30:33 Muscle weakness Active 2019-01-15 11:30:33 Abnormal gait Active 2019-01-15 11:30:33 Impairment of balance Active 2019-01-15 11:30:33 Pain in left knee Active 2019-01-13 12:07:51 Stiffness of left knee Active 2019-01-13 12:07:51 Muscle weakness Active 2019-01-13 12:07:51 Abnormal gait Active 2019-01-13 12:07:51 Impairment of balance Active 2019-01-13 12:07:51 Pain in left knee Active 2019-01-13 12:07:51 Stiffness of left knee Active 2019-01-13 12:07:51 Muscle weakness Active 2019-01-13 12:07:51 Abnormal gait Active 2019-01-13 12:07:51 Impairment of balance Active 2019-01-13 12:07:51 Pain in left knee Active 2019-01-10 10:38:38 Stiffness of left knee Active 2019-01-10 10:38:38 Muscle weakness Active 2019-01-10 10:38:38 Abnormal gait Active 2019-01-10 10:38:38 Impairment of balance Active 2019-01-10 10:38:38 Asthma Active Lupus Active Lupus Active Pulmonary eosinophilia Active Immune disorder Active Abnormal gait Active Restrictive lung disease Active Asthma Active Chronic post-traumatic stress disorder Active (PTSD) Asthma Active Asthma Active Pulmonary eosinophilia Active Immune disorder Active Restrictive lung disease Active GERD (gastroesophageal reflux disease) Active Pneumonia Active Lupus Active Lupus Active Asthma Active Chronic post-traumatic stress disorder Active (PTSD) Active asthma Active Pulmonary eosinophilia Active Restrictive lung disease Active GERD (gastroesophageal reflux disease) Active Pneumonia Active Lupus Active CFS (chronic fatigue syndrome) Active Lupus Active CFS (chronic fatigue syndrome) Active Lupus Active Active asthma Active Pulmonary eosinophilia Active Immune disorder Active Restrictive lung disease Active GERD (gastroesophageal reflux disease) Active Pneumonia Active Asthma Active Obstructive sleep apnea on CPAP Active Lupus Active Lupus Active Pulmonary eosinophilia Active CFS (chronic fatigue syndrome) Active Abnormal gait Active GERD (gastroesophageal reflux disease) Active Asthma Active Obstructive sleep apnea on CPAP Active Osteopenia of multiple sites Active Bilateral edema of lower extremity Active Does not drink alcohol Active History of lumpectomy Active History of balance disorder Active History of essential hypertension Active History of cataract Active History of chest pain Active History of type 2 diabetes mellitus Active CFS (chronic fatigue syndrome) Active Immune disorder Active Memory loss or impairment Active History of fecal impaction Active History of paresthesia Active Abnormal gait Active Family history of rheumatoid arthritis Active Onychia Active Active asthma Active Aching headache Active History of depression Active History of obesity Active History of malignant neoplasm of Active thyroid Caregiver burden Active History of anemia Active Chronic joint pain Active Pneumonia Active Chronic post-traumatic stress disorder Active (PTSD) Anxiety and depression Active Active asthma Active Immune disorder Active Asthma Active Lupus Active GERD (gastroesophageal reflux disease) Active Asthma Active Chronic post-traumatic stress disorder Active (PTSD) Active asthma Active CFS (chronic fatigue syndrome) Active Restrictive lung disease Active GERD (gastroesophageal reflux disease) Active Chronic joint pain Active Pneumonia Active Chronic post-traumatic stress disorder Active (PTSD) Lupus Active Immune disorder Active Lupus Active Restrictive lung disease Active Pulmonary eosinophilia Active GERD (gastroesophageal reflux disease) Active Pneumonia Active Pain in left knee Active 2019-01-06 10:36:03 Stiffness of left knee Active 2019-01-06 10:36:03 Muscle weakness Active 2019-01-06 10:36:03 Abnormal gait Active 2019-01-06 10:36:03 Impairment of balance Active 2019-01-06 10:36:03 Pain in left knee Active 2018-12-30 08:54:43 Stiffness of left knee Active 2018-12-30 08:54:43 Muscle weakness Active 2018-12-30 08:54:43 Abnormal gait Active 2018-12-30 08:54:43 Impairment of balance Active 2018-12-30 08:54:43 Pain in left knee Active 2018-12-27 11:46:56 Stiffness of left knee Active 2018-12-27 11:46:56 Muscle weakness Active 2018-12-27 11:46:56 Abnormal gait Active 2018-12-27 11:46:56 Impairment of balance Active 2018-12-27 11:46:56 Pain in left knee Active 2018-12-24 15:03:09 Stiffness of left knee Active 2018-12-24 15:03:09 Muscle weakness Active 2018-12-24 15:03:09 Abnormal gait Active 2018-12-24 15:03:09 Impairment of balance Active 2018-12-24 15:03:09 Pain in left knee Active 2018-12-20 12:10:56 Stiffness of left knee Active 2018-12-20 12:10:56 Muscle weakness Active 2018-12-20 12:10:56 Abnormal gait Active 2018-12-20 12:10:56 Impairment of balance Active 2018-12-20 12:10:56 Pain in left knee Active 2018-12-18 14:16:46 Pain in left knee Active 2018-12-18 14:16:46 Pain in left knee Active 2018-12-17 13:09:00 Stiffness of left knee Active 2018-12-17 13:09:00 Muscle weakness Active 2018-12-17 13:09:00 Abnormal gait Active 2018-12-17 13:09:00 Impairment of balance Active 2018-12-17 13:09:00 Pain in left knee Active 2018-12-17 13:09:00 Stiffness of left knee Active 2018-12-17 13:09:00 Muscle weakness Active 2018-12-17 13:09:00 Abnormal gait Active 2018-12-17 13:09:00 Impairment of balance Active 2018-12-17 13:09:00 Pain in left knee Active 2018-12-11 11:50:07 Stiffness of left knee Active 2018-12-11 11:50:07 Muscle weakness Active 2018-12-11 11:50:07 Abnormal gait Active 2018-12-11 11:50:07 Impairment of balance Active 2018-12-11 11:50:07 Pain in left knee Active 2018-12-11 11:50:07 Stiffness of left knee Active 2018-12-11 11:50:07 Muscle weakness Active 2018-12-11 11:50:07 Abnormal gait Active 2018-12-11 11:50:07 Impairment of balance Active 2018-12-11 11:50:07 Pain in left knee Active 2018-12-09 11:47:44 Stiffness of left knee Active 2018-12-09 11:47:44 Muscle weakness Active 2018-12-09 11:47:44 Abnormal gait Active 2018-12-09 11:47:44 Impairment of balance Active 2018-12-09 11:47:44 Pain in left knee Active 2018-12-09 11:47:44 Stiffness of left knee Active 2018-12-09 11:47:44 Muscle weakness Active 2018-12-09 11:47:44 Abnormal gait Active 2018-12-09 11:47:44 Impairment of balance Active 2018-12-09 11:47:44 Pain in left knee Active 2018-12-05 09:42:39 Stiffness of left knee Active 2018-12-05 09:42:39 Muscle weakness Active 2018-12-05 09:42:39 Abnormal gait Active 2018-12-05 09:42:39 Impairment of balance Active 2018-12-05 09:42:39 Pain in left knee Active 2018-12-05 09:42:39 Stiffness of left knee Active 2018-12-05 09:42:39 Muscle weakness Active 2018-12-05 09:42:39 Abnormal gait Active 2018-12-05 09:42:39 Impairment of balance Active 2018-12-05 09:42:39 Pain in left knee Active 2018-12-03 10:36:26 Stiffness of left knee Active 2018-12-03 10:36:26 Muscle weakness Active 2018-12-03 10:36:26 Abnormal gait Active 2018-12-03 10:36:26 Impairment of balance Active 2018-12-03 10:36:26 Pain in left knee Active 2018-12-03 10:36:26 Stiffness of left knee Active 2018-12-03 10:36:26 Muscle weakness Active 2018-12-03 10:36:26 Abnormal gait Active 2018-12-03 10:36:26 Impairment of balance Active 2018-12-03 10:36:26 Pain in left knee Active 2018-11-28 10:48:33 Stiffness of left knee Active 2018-11-28 10:48:33 Muscle weakness Active 2018-11-28 10:48:33 Abnormal gait Active 2018-11-28 10:48:33 Impairment of balance Active 2018-11-28 10:48:33 Pain in left knee Active 2018-11-28 10:48:33 Stiffness of left knee Active 2018-11-28 10:48:33 Muscle weakness Active 2018-11-28 10:48:33 Abnormal gait Active 2018-11-28 10:48:33 Impairment of balance Active 2018-11-28 10:48:33 Pain in left knee Active 2018-11-26 10:41:46 Stiffness of left knee Active 2018-11-26 10:41:46 Muscle weakness Active 2018-11-26 10:41:46 Abnormal gait Active 2018-11-26 10:41:46 Impairment of balance Active 2018-11-26 10:41:46 Pain in left knee Active 2018-11-26 10:41:46 Stiffness of left knee Active 2018-11-26 10:41:46 Muscle weakness Active 2018-11-26 10:41:46 Abnormal gait Active 2018-11-26 10:41:46 Impairment of balance Active 2018-11-26 10:41:46 Pain in left knee Active 2018-11-20 12:00:55 Stiffness of left knee Active 2018-11-20 12:00:55 Muscle weakness Active 2018-11-20 12:00:55 Abnormal gait Active 2018-11-20 12:00:55 Impairment of balance Active 2018-11-20 12:00:55 Pain in left knee Active 2018-11-20 12:00:55 Stiffness of left knee Active 2018-11-20 12:00:55 Muscle weakness Active 2018-11-20 12:00:55 Abnormal gait Active 2018-11-20 12:00:55 Impairment of balance Active 2018-11-20 12:00:55 Pain in left knee Active 2018-11-15 10:24:48 Stiffness of left knee Active 2018-11-15 10:24:48 Muscle weakness Active 2018-11-15 10:24:48 Abnormal gait Active 2018-11-15 10:24:48 Impairment of balance Active 2018-11-15 10:24:48 Pain in left knee Active 2018-11-08 13:08:33 Stiffness of left knee Active 2018-11-08 13:08:33 Muscle weakness Active 2018-11-08 13:08:33 Abnormal gait Active 2018-11-08 13:08:33 Impairment of balance Active 2018-11-08 13:08:33 Pain in left knee Active 2018-11-08 13:08:33 Stiffness of left knee Active 2018-11-08 13:08:33 Muscle weakness Active 2018-11-08 13:08:33 Abnormal gait Active 2018-11-08 13:08:33 Impairment of balance Active 2018-11-08 13:08:33 Pain in left knee Active 2018-10-31 13:58:40 Stiffness of left knee Active 2018-10-31 13:58:40 Muscle weakness Active 2018-10-31 13:58:40 Abnormal gait Active 2018-10-31 13:58:40 Impairment of balance Active 2018-10-31 13:58:40 Pain in left knee Active 2018-10-31 13:58:40 Stiffness of left knee Active 2018-10-31 13:58:40 Muscle weakness Active 2018-10-31 13:58:40 Abnormal gait Active 2018-10-31 13:58:40 Impairment of balance Active 2018-10-31 13:58:40 Pain in left knee Active 2018-10-28 14:49:56 Stiffness of left knee Active 2018-10-28 14:49:56 Muscle weakness Active 2018-10-28 14:49:56 Abnormal gait Active 2018-10-28 14:49:56 Impairment of balance Active 2018-10-28 14:49:56 Pain in left knee Active 2018-10-28 14:49:56 Stiffness of left knee Active 2018-10-28 14:49:56 Muscle weakness Active 2018-10-28 14:49:56 Abnormal gait Active 2018-10-28 14:49:56 Impairment of balance Active 2018-10-28 14:49:56 Pain in left knee Active 2018-10-25 12:32:05 Stiffness of left knee Active 2018-10-25 12:32:07 Muscle weakness Active 2018-10-25 12:32:08 Abnormal gait Active 2018-10-25 12:32:09 Impairment of balance Active 2018-10-25 12:32:27 Pain in left knee Active 2018-10-25 12:32:05 Stiffness of left knee Active 2018-10-25 12:32:07 Muscle weakness Active 2018-10-25 12:32:08 Abnormal gait Active 2018-10-25 12:32:09 Impairment of balance Active 2018-10-25 12:32:27 Pain in left knee Active 2018-10-23 14:24:20 Follow-up orthopedic assessment Active 2018-11-08 14:26 :57 Pain in left knee Active 2018-10-23 14:24:20 Follow-up orthopedic assessment Active 2018-11-08 14:26 :57 Moderate persistent asthma, Active uncomplicated Essential (primary) hypertension Active Hypothyroidism, unspecified Active Body mass index (BMI) 40.0-44.9, adult Active Moderate persistent asthma, Active uncomplicated Obstructive sleep apnea (adult) Active (pediatric) Dependence on other enabling machines Active and devices Postprocedural hypothyroidism Active Encounters Start End Encounter Admission Attending Care Care Encounter Date/Time Date/Time Type Type Clinicians Facility Department ID 2020-09-14 2020-09-14 Appointment [facility] [id number] 11:30:00 13:31:07 ; [facility] Infusion, Unit 2020-08-17 2020-08-17 [id number] 11:30:00 11:30:00 ; [facility]fusion, Unit 2020-07-28 2020-07-28 [facility] [id number] 11:55:00 11:55:00 ; Merritt Sparks 2020-07-26 2020-07-26 Appointment [facility] [id number] 10:15:00 10:15:00 ; Irina Kamara D.O. 2020-07-20 2020-07-20 [facility] [id number] 11:30:00 11:30:00 ; [facility] Infusion, Unit 2020-06-21 2020-06-21 [facility] [id number] 10:00:00 10:00:00 ; [facility] Infusion, Unit 2020-06-08 2020-06-08 Appointment [facility] [id number] 11:15:00 11:15:00 ; [place], Lab WB 2020-06-07 2020-06-07 [facility] [id number] 09:30:00 09:30:00 ; Anne Kamara MD 2020-05-24 2020-05-24 Appointment [facility] [id number] 09:00:00 09:00:00 ; [facility] Infusion, Unit 2020-05-13 2020-05-13 Amanuel Duke 2408 [id number] 00:00:00 00:00:00 Charly, Surgical Surgical [id number] PAC: [address] [facility], [address], [place] [address], Ph. 2020-05-13 2020-05-13 Amanuel Abreut 2411 80_202 00:00:00 00:00:00 Barneveld, Surgical Surgical [id number] PAC: [address] [facility], [address], [place] [address], Ph. 2020-05-04 2020-05-04 Amanuel Abreut [id number] 00:00:00 00:00:00 [facility] [id number] Deejay Bolton DPT: [address], [place] [address], Ph. 2020-05-04 2020-05-04 Amanuel Abreut [id number] 00:00:00 00:00:00 [facility] [id number] Deejay Bolton DPT: [address], [place] [address], Ph. 2020-04-27 2020-04-27 Amanuel Abreut [id number] 02 00:00:00 00:00:00 [facility] [id number] Deej[facility] DPT: [address], [place] [address], Ph. 2020-04-27 2020-04-27 Amanuel Duke [id number] 02 00:00:00 00:00:00 [facility] [id number] Deejay [facility] DPT: [address], [place] [address], Ph. 2020-04-26 2020-04-26 Appointment [facility] [id number] 09:15:00 09:15:00 ; [facility], Unit 2020-04-21 2020-04-21 [place] [id number] 02 00:00:00 00:00:00 [facility] [id number] Deejay Bolton DPT: [address], [place] [address], Ph. 2020-04-21 2020-04-21 Amanuel [place] [id number] 02 00:00:00 00:00:00 [facility] [id number] Deejay Bolton DPT: [address], [place] [address], Ph. 2020-04-19 2020-04-19 Amanuel [place]ida Abreut [id number] 02 00:00:00 00:00:00 [facility] [id number] Deejay Bolton DPT: [address], [place] [address], Ph. 2020-04-19 2020-04-19 Amanuel Abreut [id number] 02 00:00:00 00:00:00 [facility] [id number] Deejay Bolton DPT: [address], [place] [address], Ph. 2020-04-09 2020-04-09 Amanuel Abreut [id number] 02 00:00:00 00:00:00 [facility] [id number] Deejay Bolton DPT: [address], [place] [address], Ph. 2020-04-06 2020-04-06 Appointment [facility] [id number] 08:10:00 08:10:00 ; Esther lonnie, Lab 2020-04-06 2020-04-06 Amanuel Hayseret [id number] 00:00:00 00:00:00 [facility] [id number] Deejay Bolton DPT: [address], [place] [address], Ph. 2020-04-02 2020-04-02 Amanuel Hayseret [id number] 02 00:00:00 00:00:00 [facility] [id number] Deejay [facility] DPT: [address], [place] [address], Ph. 2020-03-30 2020-03-30 [place]manuel [place] [id number] 02 00:00:00 00:00:00 [facility] [id number] Deejay [facility] DPT: [address], [place] [address], Ph. 2020-03-29 2020-03-29 [facility] [id number] 11:30:00 11:30:00 ; CIM [facility], Unit 2020-03-29 2020-03-29 [facility] [id number] 08:30:00 08:30:00 ; Esther lonnie, Lab 2020-03-24 2020-03-24 Amanuel Hayseret [id number] 00:00:00 00:00:00 [facility] [id number] Deejay Bolton DPT: [address], [place] [address], Ph. 2020-03-23 2020-03-23 Appointment [facility] [id number] 10:00:00 10:00:00 ; Irina Kamara D.O. 2020-03-22 2020-03-22 [place]manuel [place] [id number] 00:00:00 00:00:00 [facility] [id number] Deejay [facility] DPT: [address], [place] [address], Ph. 2020-03-19 2020-03-19 Amanuel [place] [id number] 02 00:00:00 00:00:00 [facility] [id number] Deejay Bolton DPT: [address], [place] [address], Ph. 2020-03-15 2020-03-15 Amanuel Hayseret [id number] 02 00:00:00 00:00:00 [facility] [id number] Deejay [facility] DPT: [address], [place] [address], Ph. 2020-03-12 2020-03-12 Amanuel Hayseret [id number] 02 00:00:00 00:00:00 [facility] [id number] Deejay [facility] DPT: [address], [place] [address], Ph. 2020-03-10 2020-03-10 [facility] [id number] 10:45:00 10:45:00 ; Anne Kamara MD 2020-03-09 2020-03-09 Amanuel Hayseret [id number] 02 00:00:00 00:00:00 [facility] [id number] Deejay Bolton DPT: [address], [place] [address], Ph. 2020-03-05 2020-03-05 Amanuel Hayseret [id number] 00:00:00 00:00:00 [facility] [id number] Deejay [facility] DPT: [address], [place] [address], Ph. 2020-03-03 2020-03-03 Anne Hayseret [id number] 00:00:00 00:00:00 Badillo, Surgical Surgical [id number] DPT: [address], [place] [address], Ph. 2020-03-01 2020-03-01 [facility] [id number] 10:00:00 10:00:00 ; [facility] Infusion, Unit 2020-02-20 2020-02-20 Amanuel [place] Srikanth [id number] 00:00:00 00:00:00 [facility] [id number] HoangDeejay guadalupe Associates DPT: [address], [place] [address], Ph. 2020-02-18 2020-02-18 Anne Kaiser Srikanth Hayse[place] [id number] 0_[id number] 00:00:00 00:00:00 Badillo, Surgical Surgical [id number] DPT: [address] [facility] [address], [place] [address], Ph. 2020-02-13 2020-02-13 Anne Kaiser Srikanth Hayseret [id number] 3_202 00:00:00 00:00:00 Badillo, Surgical Surgical [id number] DPT: [address] [facility] [address], [place] [address], Ph. 2020-02-13 2020-02-13 Anne Abreut [place] [id number] 0_202 00:00:00 00:00:00 Badillo, Surgical Surgical [id number] DPT: [address] [facility] [address], [place] [address], Ph. 2020-02-12 2020-02-12 Amanuel Abreut 2408 [id number] 00:00:00 00:00:00 [place]ne[place]d, Surgical Surgical [id number] PAC: [address], [place] [address], Ph. 2020-02-12 2020-02-12 Amanuel Hayseret 2411 80_202 00:00:00 00:00:00 [place]ne[place]d, Surgical Surgical 13054 PAC: [address], [address], [place] [address], Ph. 2020-02-11 2020-02-11 Amanuel Hayseret [id number] 02 00:00:00 00:00:00 [facility] [id number] Deejay Bolton DPT: [address], [place] [address], Ph. 2020-02-11 2020-02-11 Amanuel Abreut [id number] 00:00:00 00:00:00 [facility] [id number] Deejay Bolton DPT: [address], [place] [address], Ph. 2020-02-02 2020-02-02 [facility] [id number] 14:30:00 14:30:00 ; [facility] Infusion, Unit 2020-01-30 2020-01-30 Tressa Abreut [place] [id number] 3 00:00:00 00:00:00 Llyod, 3D ARTIST: Surgical Surgical [id number] [address] [facility] [address], [place] [address], Ph. 2020-01-30 2020-01-30 Tressa [place] [id number] 0 00:00:00 00:00:00 Llyod, 3D ARTIST: Surgical Surgical [id number] [address] [facility] [address], [place] [address], Ph. 2020-01-28 2020-01-28 Tressa [place] [id number] 3 00:00:00 00:00:00 Llyod, 3D ARTIST: Surgical Surgical [id number] [address] [facility] [address], [place] [address], Ph. 2020-01-28 2020-01-28 Tressa [place] [address] 0202 00:00:00 00:00:00 Llyod, 3D ARTIST: Surgical Surgical [id number] [address] [facility] [address], [place] [address], Ph. 2020-01-22 2020-01-22 Tressa Hayseret [id number] 3 00:00:00 00:00:00 Llyod, 3D ARTIST: Surgical Surgical [id number] [address] [facility] [address], [place] [address], Ph. 2020-01-22 2020-01-22 Tressa Hayseret [id number] 0202 00:00:00 00:00:00 Llyod, 3D ARTIST: Surgical Surgical [id number] [address] [facility] [address], [place] [address], Ph. 2020-01-20 2020-01-20 Amanuel Hayseret [id number] 00:00:00 00:00:00 [facility] [id number] [facility] DPT: [address], [place] [address], Ph. 2020-01-20 2020-01-20 Amanuel Srikanth Hayse[place] [id number] 00:00:00 00:00:00 [facility] 06044 [facility] DPT: [address], [place] [address], Ph. 2020-01-08 2020-01-08 Irina Hayseret [id number]_ [id number] 00:00:00 00:00:00 MD Mao: Surgical Surgical [id number] 5 [facility], [address], [place] [address], Ph. 2020-01-08 2020-01-08 Irina Hayseret [id number]_ 202 00:00:00 00:00:00 MD Mao: Surgical Surgical [id number] [address] [facility], [address], [place] [address], Ph. 2020-01-05 2020-01-05 Appointment [facility] [id number] 10:30:00 10:30:00 ; CIM Infusion, Unit 2019-12-24 2019-12-24 Appointment [facility] [id number] 11:15:00 11:15:00 ; Irina Kamara D.O. 2019-12-09 2019-12-09 Appointment KIEL KamaraLEONA [facility] [id number] 10:45:00 10:45:00 ; Anne Kamara MD 2019-12-09 2019-12-09 Appointment [facility] [id number] 08:30:00 08:30:00 ; Pulmonary, Functions 2019-12-05 2019-12-05 Appointment [facility] [id number] 11:30:00 11:30:00 ; CIM Infusion, Unit 2019-11-27 2019-11-27 Irina Duke [id number]_ [id number] 00:00:00 00:00:00 MD Mao: Surgical Surgical [id number] [address] [facility], [address] [address], Ph. 2019-11-07 2019-11-07 Appointment [facility] [id number] 11:30:00 11:30:00 ; CIM Infusion, Unit 2019-10-28 2019-10-28 Irina Duke [id number]_ 201 00:00:00 00:00:00 MD Mao: Surgical Surgical 51653 [address] [place] [address], Ph. 2019-10-13 2019-10-16 Inpatient MARLON SINHA [facility] [id number] 07:02:00 10:45:00 IRINA 04 2019-10-10 2019-10-10 [facility] [id number] 12:00:00 12:00:00 ; [facility] Infusion, Unit 2019-10-06 2019-10-06 Registered MARLON SINHAt [id number] 15:16:00 15:16:00 [place] [address] 2019-10-02 2019-10-02 Amanuel Duke 2408 83_[id number] 00:00:00 00:00:00 Charly Surgical Surgical [id number] PAC: [address] [facility], [address], [place] [address], Ph. 2019-09-18 2019-09-18 Irina Abreut [id number]_ 201 00:00:00 00:00:00 MD Mao: Surgical Surgical [id number] [address] [facility], [address], [place] [address], Ph. 2019-09-15 2019-09-15 Appointment [facility] [id number] 11:15:00 11:15:00 ; Irina Kamara D.O. 2019-09-12 2019-09-12 Appointment [facility] [id number] 10:30:00 10:30:00 ; CIM Infusion, Unit 2019-08-15 2019-08-15 Appointment [facility] [id number] 10:30:00 10:30:00 ; CIM Infusion, Unit 2019-08-14 2019-08-14 Irina Vaughan Srikanth Hayseret [id number]_ [id number] 00:00:00 00:00:00 MD Mao: Surgical Surgical [id number] [address] [facility], [address], [place] [address], Ph. 2019-08-05 2019-08-05 Appointment JACQUELINE Kamara [facility] [id number] 10:30:00 10:30:00 ; Anne Kamara MD 2019-08-05 2019-08-05 Appointment [facility] [id number] 08:30:00 08:30:00 ; Pulmonary, Functions 2019-08-05 2019-08-05 [facility] [id number] 08:00:00 08:00:00 ; CT ESTHER LE, ROOM 2019-06-13 2019-06-13 Appointment [facility] [id number] 15:15:00 15:15:00 ; Irina Kamara D.O. 2019-04-17 2019-04-17 App[facility] [id number] 14:00:00 14:00:00 ; Anne Kamara MD 2019-04-17 2019-04-17 Appointment [facility] [id number] 11:00:00 11:00:00 ; Pulmonary, Functions 2019-03-07 2019-03-07 Appointment [facility] [id number] 10:30:00 10:30:00 ; Irina Kamara D.O. 2019-02-13 2019-02-13 Irina Duke [id number]_ 201 00:00:00 00:00:00 MD Mao: Surgical Surgical [id number] [address] [facility] [address], [address], [place] [address], Ph. 2019-02-12 2019-02-12 Anne L [place] [id number] 3_201 00:00:00 00:00:00 Badillo, Surgical Surgical [id number] DPT: [address], [place] [address], Ph. 2019-02-12 2019-02-12 Annekelsi Abreut [place] [id number] 0_201 00:00:00 00:00:00 Badillo, Surgical Surgical [id number] DPT: [address], [place] [address], Ph. 2019-02-10 2019-02-10 Anne L [place] [id number] 3_201 00:00:00 00:00:00 Badillo, Surgical Surgical [id number] DPT: [address], [place] [address], Ph. 2019-02-10 2019-02-10 Anne L [place] [id number] 0_201 00:00:00 00:00:00 Badillo, Surgical Surgical [id number] DPT: [address], [place] [address], Ph. 2019-02-05 2019-02-05 Anne Abreut [place] [id number] 3_201 00:00:00 00:00:00 Badillo, Surgical Surgical [id number] DPT: [address], [place] [address], Ph. 2019-02-05 2019-02-05 Anne Hayseret [id number] 0_201 00:00:00 00:00:00 Badillo, Surgical Surgical [id number] DPT: [address], [place] [address], Ph. 2019-02-03 2019-02-03 Unique Hayseret [id number] 00:00:00 00:00:00 El, Surgical Surgical [id number] 3D ARTIST: [address], [place] [address], Ph. 2019-02-03 2019-02-03 Crystal Srikanth Hayseret [id number] 00:00:00 00:00:00 El, Surgical Surgical [id number] 3D ARTIST: [address], [place] [address], Ph. 2019-01-31 2019-01-31 Crystal Srikanth Hayseret [id number] 00:00:00 00:00:00 [place], Surgical Surgical [id number] 3D ARTIST: [address], [place] [address], Ph. 2019-01-31 2019-01-31 Crystal Srikanth Hayseret [id number] 00:00:00 00:00:00 [place], Surgical Surgical [id number] 3D ARTIST: [address], [place] [address], Ph. 2019-01-27 2019-01-27 Crystal [place] [id number] 00:00:00 00:00:00 [place] [id number] 3D ARTIST: [address], [place] [address], Ph. 2019-01-27 2019-01-27 [place] [id number] 00:00:00 00:00:00 [place] [id number] 3D ARTIST: [address], [place] [address], Ph. 2019-01-22 2019-01-22 [place] [id number] 00:00:00 00:00:00 [place] [id number] 3D ARTIST: [address], [place] [place] [address], Ph. 2019-01-22 2019-01-22 [place] [id number] 00:00:00 00:00:00 [place], Surgical Surgical [id number] 3D ARTIST: [address], [place] [address], Ph. 2019-01-20 2019-01-20 [place] [id number] 00:00:00 00:00:00 [place], Surgical Surgical [id number] 3D ARTIST: [address], [place] [address], Ph. 2019-01-20 2019-01-20 [place] [id number] 00:00:00 00:00:00 [place], Surgical Surgical 70010 3D ARTIST: [address], [place] [address], Ph. 2019-01-15 2019-01-15 [place] [id number] 00:00:00 00:00:00 [place], Surgical Surgical 67027 3D ARTIST: [address], [place] [address], Ph. 2019-01-15 2019-01-15 [place] [id number] 00:00:00 00:00:00 [place], Surgical Surgical [id number] 3D ARTIST: [address], [place] [address], Ph. 2019-01-13 2019-01-13 Appointment [facility] [id number] 12:25:00 12:25:00 ; Merritt Gtz 2019-01-13 2019-01-13 Crystal Srikanth [place] [id number] 00:00:00 00:00:00 [place], Surgical Surgical 45873 3D ARTIST: [address] [facility] [address], [place] [address], Ph. 2019-01-13 2019-01-13 [place] [id number] 00:00:00 00:00:00 [place], Surgical Surgical 78887 3D ARTIST: [address] [facility] [address], [place] [address], Ph. 2019-01-10 2019-01-10 Anne Kaiser Srikanth [place] [id number] 0_201 00:00:00 00:00:00 [place], Surgical Surgical [id number] DPT: [address] [facility] [address], [place] [address], Ph. 2019-01-07 2019-01-07 Appointment [facility] [id number] 15:45:00 15:45:00 ; Anne Kamara MD 2019-01-07 2019-01-07 Appointment [facility] [id number] 17 13:30:00 13:30:00 ; Irina Kamara D.O. 2019-01-06 2019-01-06 [place] [id number] 00:00:00 00:00:00 [place], Surgical Surgical [id number] 3D ARTIST: [address] [facility] [address], [place] [address], Ph. 2018-12-30 2018-12-30 [place] [id number] 00:00:00 00:00:00 [place], Surgical Surgical 72934 3D ARTIST: [address] [facility] [address], [place] [address], Ph. 2018-12-27 2018-12-27 Unique [place] [id number] 00:00:00 00:00:00 [place], Surgical Surgical 47851 3D ARTIST: [address], [place] [address], Ph. 2018-12-24 2018-12-24 Unique [place] [id number] 00:00:00 00:00:00 [place], Surgical Surgical 11161 3D ARTIST: [address], [place] [address], Ph. 2018-12-20 2018-12-20 Tressa [place] [id number] 0_201 00:00:00 00:00:00 Ruthie, 3D ARTIST: Surgical Surgical [id number] [address], [place] [address], Ph. 2018-12-18 2018-12-18 Zain [place] [id number] 00:00:00 00:00:00 Chandler Millard Surgical Surgical [id number] MD [place]: [facility] [address] [place] [address], [address], [place] [address], Ph. [phone] 2018-12-18 2018-12-18 Zain [place] [id number] 00:00:00 00:00:00 Chandler Millard Surgical Surgical [id number] MD [facility]: [facility] [address] [place] [address], [address], [place] [address], Ph. [phone] 2018-12-17 2018-12-17 Unique [place] [id number] 00:00:00 00:00:00 [place], Surgical Surgical 42130 3D ARTIST: [address], [place] [address], Ph. 2018-12-17 2018-12-17 Unique [place] [id number] 00:00:00 00:00:00 [place], Surgical Surgical 90035 3D ARTIST: [address], [place] [address], Ph. 2018-12-11 2018-12-11 Crystal Srikanth [place] [id number] 00:00:00 00:00:00 [place], Surgical Surgical 00455 3D ARTIST: [address], [place] [address], Ph. 2018-12-11 2018-12-11 Crystal Srikanth [place] [id number] 00:00:00 00:00:00 [place], Surgical Surgical 14251 3D ARTIST: [address], [place] [address], Ph. 2018-12-09 2018-12-09 Crystal Srikanth [place] [id number] 00:00:00 00:00:00 [place], Surgical Surgical 49901 3D ARTIST: [address], [place] [address], Ph. 2018-12-09 2018-12-09 Crystal Srikanth [place] [id number] 00:00:00 00:00:00 [place], Surgical Surgical 10012 3D ARTIST: [address], [place] [address], Ph. 2018-12-05 2018-12-05 Anne [place] [id number] 3_201 00:00:00 00:00:00 [place], Surgical Surgical [id number] DPT: [address], [place] [address], Ph. 2018-12-05 2018-12-05 Anne [place]se[place] [id number] 0_201 00:00:00 00:00:00 [place], Surgical Surgical [id number] DPT: [address], [place] [address], Ph. 2018-12-03 2018-12-03 Anne [place]seret [id number] 3_201 00:00:00 00:00:00 [place], Surgical Surgical [id number] DPT: [address], [place] [address], Ph. 2018-12-03 2018-12-03 Anne Hayseret [id number] 0_201 00:00:00 00:00:00 [place], Surgical Surgical 40893 DPT: [address], [place] [address], Ph. 2018-11-28 2018-11-28 [place] [id number] 00:00:00 00:00:00 [place], Surgical Surgical 94128 3D ARTIST: [address], [place] [address], Ph. 2018-11-28 2018-11-28 [place] [id number] 00:00:00 00:00:00 [place], Surgical Surgical 48982 3D ARTIST: [address], [place] [address], Ph. 2018-11-26 2018-11-26 Anne Hayseret [id number] 3_201 00:00:00 00:00:00 [place], Surgical Surgical [id number] DPT: [address], [place] [address], Ph. 2018-11-26 2018-11-26 Anne [place] [id number] 0_201 00:00:00 00:00:00 [place], Surgical Surgical 40186 DPT: [address], [place] [address], Ph. 2018-11-20 2018-11-20 [place] [id number] 00:00:00 00:00:00 [place], Surgical Surgical 37042 3D ARTIST: [address], [place] [address], Ph. 2018-11-20 2018-11-20 Crystal Srikanth [place] [id number] 00:00:00 00:00:00 [place], Surgical Surgical 12481 3D ARTIST: [address], [place] [address], Ph. 2018-11-15 2018-11-15 [place] [id number] 00:00:00 00:00:00 [place], Surgical Surgical 58510 3D ARTIST: [address], [place] [address], Ph. 2018-11-08 2018-11-08 [place] [id number] 00:00:00 00:00:00 [place], Surgical Surgical 94085 3D ARTIST: [address], [place] [address], Ph. 2018-11-08 2018-11-08 [place] [id number] 00:00:00 00:00:00 [place], Surgical Surgical 73708 3D ARTIST: [address], [place] [address], Ph. 2018-10-31 2018-10-31 [place] [id number] 00:00:00 00:00:00 [place], Surgical Surgical 99028 3D ARTIST: [address], [place] [address], Ph. 2018-10-31 2018-10-31 [place] [id number] 00:00:00 00:00:00 [place], Surgical Surgical [id number] 3D ARTIST: [address], [place] [address], Ph. 2018-10-28 2018-10-28 Anne Kaiser [place] [id number] 3_201 00:00:00 00:00:00 [place], Surgical Surgical [id number] DPT: [address], [place] [address], Ph. 2018-10-28 2018-10-28 Anne Hayseret [id number] 0_201 00:00:00 00:00:00 [place], Surgical Surgical [id number] DPT: [address] [facility] [address], [place] [address], Ph. 2018-10-25 2018-10-25 Anne Hayseret [id number] 3_201 00:00:00 00:00:00 [place], Surgical Surgical 13429 DPT: [address] [facility] [address], [place] [address], Ph. 2018-10-25 2018-10-25 Anne Hayseret [id number] 0_201 00:00:00 00:00:00 [place], Surgical Surgical [id number] DPT: [address] [facility] [address], [place] [address], Ph. 2018-10-23 2018-10-23 Zain [place] [id number] 00:00:00 00:00:00 [place] Millard Surgical Surgical [id number] MD [place]: [facility] [address] [place] [address], [address], [place] [address], Ph. [phone] 2018-10-23 2018-10-23 Zain Abre[place] [id number] 00:00:00 00:00:00 Chandler Millard Surgical Surgical [id number] MD [place]: [facility] [address] [place] [address], [address], [place] [address], Ph. [phone] 2018-04-16 2018-04-16 Outpatient Dhiraj [facility] [id number] 14:30:00 14:30:00 Children [id number] and [id number] [facility] 2017-09-24 2017-09-24 [facility] [id number] 08:30:00 08:30:00 Children [id number] and [id number] [facility] Family History Family Member Diagnosis Comments Start Date Stop Date Mother Family history of rheumatoid arthritis Father Family history of Asthma, severe Father Family history of Smoker Immunizations Ordered Immunization Filled Immunization Date Status Commen ts Refusal Reason Name Name Flulaval Quadrivalent 2020-07-26 Completed 0.5 ML Intramuscular 00:00:00 Suspension Prefilled Syringe Prevnar 13 2020-06-07 Completed Intramuscular 10:21:00 Suspension Pneumovax 23 25 2019-09-15 Completed MCG/0.5ML Injection 00:00:00 Injectable influenza, 2019-08-07 Completed injectable, 00:00:00 quadrivalent influenza, 2017-09-19 Completed injectable, 00:00:00 quadrivalent Pneumococcal 2016-08-12 Completed Conjugate, 00:00:00 unspecified formulation Payers Payer Name Policy Type Policy Number Effective Date Expiration D ate Plan of Treatment Planned Activity Planned Date Details Comments Future Scheduled Test [code = ] Future Scheduled Test [code = ] Future Scheduled Test [code = ] Future Scheduled Test [code = ] Future Scheduled Test [code = ] Future Scheduled Test [code = ] Future Scheduled Test [code = ] Future Scheduled Test [code = ] Future Scheduled Test [code = ] Future Appointment 2020-11-13 00:00:00 Amanuel Parks, [address] [place] [address]; [address], [place] [address] Social History Smoking Status Start Date Stop Date Never smoker Never smoked tobacco (finding) Social History Observation Description Sex Female Vital Signs Vital Name Observation Time Observation Value Comments Height 2020-05-13 00:00:00 65 [in_i] BMI (Body Mass Index) 2020-05-13 00:00:00 40.9 kg/m2 Body Weight 2020-05-13 00:00:00 246 [lb_av] Height 2020-02-12 00:00:00 65 [in_i] BMI (Body Mass Index) 2020-02-12 00:00:00 42.1 kg/m2 Body Weight 2020-02-12 00:00:00 253.2 [lb_av] BP Diastolic 2020-01-08 00:00:00 66 mm[Hg] Height 2020-01-08 00:00:00 65 [in_i] BMI (Body Mass Index) 2020-01-08 00:00:00 42.1 kg/m2 BP Systolic 2020-01-08 00:00:00 136 mm[Hg] Body Weight 2020-01-08 00:00:00 253.2 [lb_av] BP Diastolic 2019-11-27 00:00:00 70 mm[Hg] Height 2019-11-27 00:00:00 65 [in_i] BMI (Body Mass Index) 2019-11-27 00:00:00 42.1 kg/m2 BP Systolic 2019-11-27 00:00:00 124 mm[Hg] Body Weight 2019-11-27 00:00:00 253.2 [lb_av] BP Diastolic 2019-10-28 00:00:00 70 mm[Hg] Height 2019-10-28 00:00:00 65 [in_i] BP Systolic 2019-10-28 00:00:00 135 mm[Hg] WEIGHT 2019-10-13 12:10:00 114.0000 kg HEIGHT 2019-10-13 12:10:00 165.051104 cm WEIGHT 2019-10-06 11:59:00 114 kg HEIGHT 2019-10-06 11:59:00 165.346759 cm BP Diastolic 2019-10-02 00:00:00 63 mm[Hg] Height 2019-10-02 00:00:00 65 [in_i] BMI (Body Mass Index) 2019-10-02 00:00:00 42.1 kg/m2 BP Systolic 2019-10-02 00:00:00 109 mm[Hg] Body Weight 2019-10-02 00:00:00 253.2 [lb_av] BP Diastolic 2019-09-18 00:00:00 68 mm[Hg] Height 2019-09-18 00:00:00 65 [in_i] BMI (Body Mass Index) 2019-09-18 00:00:00 42.1 kg/m2 BP Systolic 2019-09-18 00:00:00 122 mm[Hg] Body Weight 2019-09-18 00:00:00 253.2 [lb_av] BP Diastolic 2019-08-14 00:00:00 80 mm[Hg] Height 2019-08-14 00:00:00 65 [in_i] BMI (Body Mass Index) 2019-08-14 00:00:00 40.8 kg/m2 BP Systolic 2019-08-14 00:00:00 139 mm[Hg] Body Weight 2019-08-14 00:00:00 245 [lb_av] BP Diastolic 2019-02-13 00:00:00 81 mm[Hg] Height 2019-02-13 00:00:00 65 [in_i] BMI (Body Mass Index) 2019-02-13 00:00:00 40.8 kg/m2 BP Systolic 2019-02-13 00:00:00 143 mm[Hg] Body Weight 2019-02-13 00:00:00 245 [lb_av] BP Diastolic 2018-12-18 00:00:00 65 mm[Hg] Height 2018-12-18 00:00:00 65 [in_i] BMI (Body Mass Index) 2018-12-18 00:00:00 40.8 kg/m2 BP Systolic 2018-12-18 00:00:00 119 mm[Hg] Body Weight 2018-12-18 00:00:00 245 [lb_av] BP Diastolic 2018-10-23 00:00:00 63 mm[Hg] Height 2018-10-23 00:00:00 65 [in_i] BMI (Body Mass Index) 2018-10-23 00:00:00 40.3 kg/m2 BP Systolic 2018-10-23 00:00:00 110 mm[Hg] Body Weight 2018-10-23 00:00:00 242 [lb_av] Systolic blood pressure 2020-09-14 13:22:00 124 mm[Hg] Diastolic blood pressure 2020-09-14 13:22:00 70 mm[Hg] Body temperature 2020-09-14 13:22:00 96.4 [degF] Heart Rate 2020-09-14 13:22:00 72 /min Respiratory rate 2020-09-14 13:22:00 20 /min Systolic blood pressure 2020-08-17 11:59:00 108 mm[Hg] Diastolic blood pressure 2020-08-17 11:59:00 60 mm[Hg] Body temperature 2020-08-17 11:59:00 99.5 [degF] Heart Rate 2020-08-17 11:59:00 78 /min Respiratory rate 2020-08-17 11:59:00 20 /min Systolic blood pressure 2020-07-26 10:43:00 122 mm[Hg] Diastolic blood pressure 2020-07-26 10:43:00 66 mm[Hg] Body height 2020-07-26 10:43:00 66 [in_us] Weight 2020-07-26 10:43:00 249.5 [lb_av] Body mass index (BMI) [Ratio] 2020-07-26 10:43:00 40.27 kg/m2 Body temperature 2020-07-26 10:43:00 98.2 [degF] Heart Rate 2020-07-26 10:43:00 66 /min Respiratory rate 2020-07-26 10:43:00 16 /min O2 SAT 2020-07-26 10:43:00 96 % Source: RA Systolic blood pressure 2020-07-20 13:43:00 122 mm[Hg] Diastolic blood pressure 2020-07-20 13:43:00 70 mm[Hg] Body temperature 2020-07-20 13:43:00 98.6 [degF] Heart Rate 2020-07-20 13:43:00 80 /min Respiratory rate 2020-07-20 13:43:00 18 /min Systolic blood pressure 2020-06-21 10:21:00 134 mm[Hg] Diastolic blood pressure 2020-06-21 10:21:00 74 mm[Hg] Body temperature 2020-06-21 10:21:00 98.6 [degF] Heart Rate 2020-06-21 10:21:00 80 /min Respiratory rate 2020-06-21 10:21:00 20 /min Systolic blood pressure 2020-06-07 09:45:00 140 mm[Hg] Diastolic blood pressure 2020-06-07 09:45:00 72 mm[Hg] Body height 2020-06-07 09:45:00 66 [in_us] Weight 2020-06-07 09:45:00 247.5 [lb_av] Body mass index (BMI) [Ratio] 2020-06-07 09:45:00 39.95 kg/m2 Body temperature 2020-06-07 09:45:00 98.8 [degF] Heart Rate 2020-06-07 09:45:00 85 /min Respiratory rate 2020-06-07 09:45:00 18 /min O2 SAT 2020-06-07 09:45:00 94 % Source: RA Systolic blood pressure 2020-05-24 09:44:00 160 mm[Hg] Diastolic blood pressure 2020-05-24 09:44:00 72 mm[Hg] Body temperature 2020-05-24 09:44:00 98.9 [degF] Heart Rate 2020-05-24 09:44:00 74 /min Respiratory rate 2020-05-24 09:44:00 20 /min Weight 2019-10-13 12:10:00 251.33 [lb_av] BMI (Body Mass Index) 2019-10-13 12:10:00 41.0 kg/m2 Hospital Discharge Instructions NameDatesDetailsInstructions not documentedNameDatesDetailsInstructions not documentedNameDatesDetailsInstructions not documented NameDatesDetailsInstructions not documentedNameDatesDetailsInstructions not documentedNameDatesDetailsInstructions not documented NameDatesDetailsInstructions not documentedNameDatesDetailsInstructions not documented1. History of total knee arthroplasty XR, knee, 1 or 2 view 2. Osteoarthritis of left knee jointDiscussion Note f/u 1 mo to check progress with PT no Xray needed next visit All the patients questions have been fully addressed at this time. Patient educational handouts: No information available. Additional Instructions Discharge Instructions Nursing Discharge Assessment Cognitive Status: Awake,Alert, Appropriate, Follows Commands Functional Status: Ambulates /c Assist., Eats Independently, Bathes /c Assistance, Dresses /c Assistance, Toilets /c Assistance, Medicates Self Indepen. Is your patient leaving the hospital with any of these: None Are Patient Instructions For Above Device Added on DC Tab: No Plan of Care #1 Problem:: Left total knee arthroplasty Plan:: per instructions of MD Goal:: No surgical complications x30 days Does The Pt Understand How To Manage Their Pain At Home?: N/A Pain Management Plan of Care: TakeMedOnlyAsPrescribed Does Patient Have Valuables In Possession: Yes Medication or Valuables Kept With Patient: DENTURE PLATE, GLASSES, CLOTHING, CELL PHONE, CPAP, LAPTOP RT Pt Specific Meds Returned: RT BOX 3RDN [facility] Physician Documentation Discharge Diagnoses: (1) Statuspost total left knee replacement (2) Morbid obesity with BMI of 40.0-44.9, adult Condition: Good Height (Feet): 5 Height (Inches): 5.00 Weight (Kilograms): 114.0000 Additonal Instructions Follow-up with Dr. Cavanaugh in 10-14 days to recheck incision and x-rays. DVT Prophylaxis: Xarelto 10 mg daily x30 days. Last day: November 12, 2019 Monitor for increased signs of bleeding call immediately with questionsor concerns. Very important to mobilize/ambulate frequently to prevent blood clots. At rest ongoing ankle pumps to prevent stiffness and swelling. JOESP stockings on both lower extremities at all times x6 weeks postop per protocol. JOSEP stockings can be removed for 2 to 3 hours each day to allow for skinrest and hygiene. Activity: Weightbearing as tolerated left leg with walker/assistive device at all times. Work with PT/OT per knee replacement protocol. At rest keep both lower extremities elevated onpillows with heels floated off and. Ongoing ankle pumps to prevent stiffness and swelling. Work on range of motion several times throughout the day with home exercises per protocol. Use all safety techn iques to avoid falls or injuries. Dressing: Keep Acticoat dressing clean/dry/intact. Do not remove or get wet. May shower but must be seated when showering. Before shower must cover with occlusive waterproof dressing such as Glad Press n' Seal. No soaking or submerging. If there is increased bleeding or drainage call orthopedic MD/PA immediately. You have been sent home with a spare dressing in case of dressing change need. TENS unit: Use TENS unit as instructed. Rotate pads every 1 to 2 days as instructed to prevent skin irritation. You have been sent with written instructions on how to use this de vice properly. Polar Cube: Use circulating ice machine, Polar Cube as instructed. Refill reservoir frequently as instructed. You have been sent with written instructions on how to use this device properly. Breathing: Use incentive spirometer 2-5 times an hour every hour while awake to prevent pulmonary complication such as pneumonia. Throughout the day take deep breaths to fully expand the lungs alsoto help prevent complications. Use CPAP machine at all times when sleeping or napping Report symptoms of a blood clot to your doctor: * Pain in your calf unrelated to your incision site * Tenderness and/or redness of your calf * Swelling of your thigh, calf, ankle or foot These symptoms may mean that a blood clot has traveled to your lungs. Call 911 if you experience: * Shortness of breath * Chest pain General: Exercise twice daily. Elevate and Ice 20 minutes on & 20 minutes off when at rest. Preventing Blood Clots: * Take Anticoagulants as directed * Ankle pumps when sitting for prolonged periods * Josep Hose for 6 weeks, 10 hours during the day and 10 hours at night for a total of 20 hours each day Potential complications of Anticoagulants: * Excessive bleeding from gums * Black tarry stools * Skin rash, hives * Sudden, severe headaches * Sudden, severe stomach pain spreading to back * Pale skin * Unusual bleeding or bruising * Vomiting blood or coffee ground materials Pre-medicate with antibiotics prior to any invasive procedures including dental cleaning.If you have non-emergent questions about your discharge instructions, you may contact our Clinical Joint Coordinator. Clinical Joint Coordinator Elaine Reddy RN - office phone Diet: As Tolerated, Resume Previous Diet, Consistent Carbohydrates (Strict diabetic control is critical for optimal healing and to prevent complications), Other (Drink plenty of fluids to stay hydrated, include some fluids with electrolytes to maintain normal balance.) Incision/Wound Care Ortho: Keep Clean and Dry, May Shower, Report Drainage, Report Redness, Report Swelling, Do Not Remove Dressing, Occlusive Dressing, Call for Temp > 100.4, Report Heavy Bleeding, No Jaccuzzi, No Whirlpool Or Tub Bath Acticoat Dressing: DO NOT REMOVE, Cryytm6m if wet/saturated, Call Physician if ([id number] if wet/saturated) General: No Strenous Activity, No Heavy Lifting, Elevate, Ice Total Knee: See Knee Binder Other: Finger Stick Blood Sugar, Don't drive, Don't operate machinery, Don't operate power tool, Report Pain, Report Headache, Report Abdominal Pain, Report Vision changes, Report Heavy Bleeding, Incentive Spirometry, Occupational Therapy, Physical Therapy1. Osteoarthritis of knee knee arthritis: care instructions 2. Pain in left knee 3. Type 2 diabetes mellitus 4. Body mass index 40+ - severely obese body mass index: care instructions Discussion Note Surgery Counseling Total Knee Replacement, Makoplasty 10/13/19 We discussed various methods of treatment for this diagnosis, including both non-surgical and surgical treatment options. The procedure was discussed in detail, including rationale for proceeding with the procedure, specifics of the technical aspects of the procedure, and the expected postoperative course including the possible need for activity modification, therapy, and duration of expected recovery. Robotic TKA was reviewed in detail, requirement for pre op CT reviewed, benefits of increased surgical precision reviewed. Risks tosurgery include: pain, numbing, scar, infection, loss of motion, nerve or vascular injury, stiffness, blood loss, reoccurrence, re-operation, non-union or mal-union, fracture, dislocation, unequal leg lengths, allergic reaction to medicine, heart attack, stroke or . Risks of allograft and blood transfusions include; infection, allergic reaction, disease transmission including hepatits or AIDS virus. Complications, including blood loss and potential need for transfusion, nerve injury, infection,success rates (expected outcomes) of the procedure, and risk of from anesthesia were discussed. Patient fully understands that there are no guarantees with surgical intervention. Post op PhysicalTherapy requirements, rehab requirements discussed in detail.. TKA info has been shared. Pt scheduled for Total Joint Pre-op Education Class. All questions have been answered in detail. The patient voiced understanding of the procedure and risks, and the decision for surgery was made today. 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 Hem lobin A1c was 6.9 2 weeks ago. She is obese but carries most of the weight in her trunk not about the knee. I think she is a good candidate for elective knee arthroplasty. She has severe pain and her range of motion is only 0-90.1. Osteoarthritis of knee 2. Pain in left knee XR, knee, 4 or more view Discussion Note The patient has significant osteoarthritis of her left knee. She has failed nonsurgical management. H er range of motion is only 0-90. I recommended knee replacement. Total knee information has been shared, she will follow-up in 4 weeks for further discussion. Patient educational handouts: No information available.
== END ==
LOC: WI 09:28
PROVIDERS: ATTEND Physician Assistant
DX: N60.02 Solitary cyst of left breast (principal)
CPT/HCPCS: 76642; 77065